=== PATIENT | female | born 1955 | race Caucasian/White ===

== ENCOUNTER 2019-11-18 10:57 | Outpatient (CLI) | payer MEDICARE, OTHER, SELFPAY ==
[2019-11-18 12:03] LABS: Basophils Percent Auto 0.7 % (0.2-1.2); Eosinophils Absolute Auto 0.1 K/mm3 (0-0.3); Eosinophils Percent Auto 3.2 % (0-4.4); Hematocrit 41.9 % (37.0-47.0); Hemoglobin 13.5 g/dL (12.0-15.0); Immature Granulocyte Absolute 0.01 K/mm3 (0.00-0.031); Immature Granulocyte Percent A 0.2 % (0-0.5); Lymphocytes Absolute Auto 1.57 K/mm3 (0.9-3.2); Lymphocytes Percent Auto 35.7 % (18.3-44.2); Mean Corpuscular HGB Conc 32.2 g/dl (32-36); Mean Corpuscular Hemoglobin 28.8 pg (26-34); Mean Corpuscular Volume 89.5 fl (80-100); Monocytes Absolute Auto 0.4 K/mm3 (0.1-0.6); Monocytes Percent Auto 8.6 % (2.6-8.5); Neutrophils Absolute Auto 2.3 K/mm3 (1.3-6.7); Neutrophils Percent Auto 51.6 % (45.5-73.1); Platelet Count Result 181 k/mm3 (150-375); Red Blood Count 4.68 M/mm3 (4.2-5.4); Red Cell Distribution Width 13.2 % (11.5-14.5); White Blood Count 4.4 K/mm3 (4.5-10.0)
[2019-11-18 12:14] LABS: Hemoglobin A1C 5.4 % (<5.7)
[2019-11-18 12:26] LABS: Alanine Aminotransferase 15 U/L (4-35); Albumin Level 4.1 g/dL (3.5-5.1); Alkaline Phosphatase 87 U/L (38-126); Aspartate Amino Transferase 26 U/L (14-36); Bilirubin,Total 0.4 mg/dL (0.2-1.3); Blood Urea Nitrogen 19 mg/dL (7-17); Calcium 9.5 mg/dL (8.4-10.2); Carbon Dioxide 28 mmol/L (22-30); Chloride 102 mmol/L (98-107); Cholesterol 165 mg/dL (0-200); Estimated Glomerular Filt Rate > 60; Glucose 94 mg/dL (65-105); HDL Direct 51 mg/dL; Potassium 4.2 mmol/L (3.4-5.0); Sodium 139 mmol/L (137-145); Triglycerides 80 mg/dL (<150)
[2019-11-18 12:28] LABS: Iron 130 ug/dL (37-170)
[2019-11-18 12:37] LABS: LDL Cholesterol Direct 80 mg/dL; Parathyroid Intact 19.7 pg/mL (7.5-53.5); Percent Iron Saturation 39 % (20-50)
[2019-11-21 07:31] LABS: Red Blood Cell Folate 510 ng/mL RBC (>280)
== END 2019-11-18 10:58 | disposition home or self-care (01) ==
LOC: ANHLAB 11:06
PROVIDERS: PCP Internal Medicine
DX: R79.9 Abnormal finding of blood chemistry, unspecified (principal); K90.9 Intestinal malabsorption, unspecified; Z98.84 Bariatric surgery status
CPT/HCPCS: 36415; 80053; 80061; 82525; 82728; 82747; 83036; 83540; 83550; 83970; 84425; 85025

== ENCOUNTER → 2020-06-25 10:29 | Outpatient (CLI) | payer MEDICARE, OTHER, SELFPAY ==
--- NOTE | ~2020-06-25 | MR_ITS ---
EXAMINATION: MR ankle LT wo con DATE: 06/25/2020 11:07 INDICATION: Left ankle pain. Posterior tibial tendon dysfunction. TECHNIQUE: Magnetic resonance imaging (MRI) of the left ankle was performed without intravenous contr ast. Sequences included sagittal, coronal, and axial proton-density weighted fast spin echo without a nd with fat saturation. COMPARISON: 03/29/2019 FINDINGS: Medial ankle ligaments: Again seen is heterotopic ossification along the deep deltoid ligament consistent with sequela of chr onic sprain. The superficial deltoid ligament and spring ligament complex remain normal. Lateral ankle ligaments: The anterior and posterior inferior tibiofibular ligaments are normal. The anterior talofibular, calc aneofibular and posterior talofibular ligaments are normal. Tendons: Achilles tendon is normal. The peroneus longus and brevis tendons are normal. The tibialis anterior a nd extensor hallucis longus and extensor digitorum longus tendons are normal. Again seen is fluid ext ending along the tibialis posterior tendon sheath predominantly above level of the ankle consistent w ith mild tenosynovitis. The tibialis posterior tendon is otherwise normal. As previous noted there is a small type II accessory os navicularis with persistent increased signal along the synchondrosis an d mild marrow edema within the os navicularis which can be seen with os navicularis syndrome. The fle xor digitorum longus and flexor hallucis longus tendons are normal. Plantar fascia: Small plantar calcaneal spur at the origin of the normal-appearing plantar aponeurosis. Bones/other: Bone alignment is normal. There is increased marrow signal at the proximal metadiaphyseal region of t he second metatarsal without evident cortical irregularity or appreciable low signal intensity fractu re line consistent with likely low-grade stress injury. No fracture or pathologic marrow replacing pr ocess. Polyarticular osteoarthritis, moderate severity with subarticular edema at the second tarsal m etatarsal joint and mild at the remaining tarsal metatarsal joints. Additional mild osteoarthritis at the ankle joint with nonuniform joint space narrowing most prominent anteromedially with chondral fi ssuring, surface regularity and minimal underlying subarticular edema along the medial rim of the marissa ar dome. Fluid: Physiologic amount fluid in the joint space. IMPRESSION: 1. New increased signal at the proximal metadiaphyseal region of the second metatarsal without eviden t low signal intensity fracture line or cortical irregularity which is nonspecific but suspicious for low-grade stress injury. 2. Normal tibialis posterior tendon persistent mild tenosynovitis and with mild reactive edema at the synchondrosis of a normal variant type II accessory os naviculare consistent with os naviculare synd ashley. 3. 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 4. Heterotopic ossification along the deep deltoid ligament consistent with sequela of chronic sprain . Reviewed, dictated and finalized at location A. IMPRESSION: 1. New increased signal at the proximal metadiaphyseal region of the second met atarsal without evident low signal intensity fracture line or cortical irregula rity which is nonspecific but suspicious for low-grade stress injury. 2. Normal tibialis posterior tendon persistent mild tenosynovitis and with mild reactive edema at the synchondrosis of a normal variant type II accessory os n aviculare consistent with os naviculare syndrome. 3. 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 4. 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
== END ==
PROVIDERS: PCP Internal Medicine; Visit Provider Podiatrist Foot & Ankle Surgery
DX: M67.874 Other specified disorders of tendon, left ankle and foot (principal)
CPT/HCPCS: 73721

== ENCOUNTER 2020-06-25 12:06 | Outpatient (CLI) | payer MEDICARE, OTHER, SELFPAY | END 2020-06-25 12:07 | disposition home or self-care (01) | LOC: ANHLAB 12:09 | PROVIDERS: PCP Internal Medicine; Visit Provider Internal Medicine | DX: E03.9 Hypothyroidism, unspecified (principal) | CPT/HCPCS: 36415; 84443 ==

== ENCOUNTER → 2020-07-25 14:46 | Outpatient (CLI) | payer MEDICARE, OTHER, SELFPAY ==
--- NOTE | ~2020-07-25 | XR_ITS ---
EXAMINATION: HAND-EDDIE ARTHRITIS 3+VIEWS DATE: 07/25/2020 15:09 INDICATION: Joint pain and limited mobility in the right hand. TECHNIQUE: Posteroanterior, lateral, and oblique views of the left and of the right hands as well as a ballcatchers view of both hands were obtained. COMPARISON: None. FINDINGS: Normal alignment at both hands. No fracture. Relatively symmetric pattern of polyarticular osteoarthr itis, moderate at several of the distal interphalangeal joints and mild at the bilateral midcarpal, f irst carpometacarpal and multiple metacarpophalangeal and interphalangeal joints. No erosions to sugg est an inflammatory arthritis. Soft tissues are unremarkable. IMPRESSION: 1. Relatively symmetric typical pattern of mild to moderate polyarticular osteoarthritis at both hand s with distal interphalangeal predominance. Reviewed, dictated and finalized at location A. 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 Relatively symmetric typical pattern of mild to moderate polyarticular osteo arthritis at both hands with distal interphalangeal predominance.
== END ==
PROVIDERS: Visit Provider Internal Medicine
DX: M79.643 Pain in unspecified hand (principal); M15.9 Polyosteoarthritis, unspecified
CPT/HCPCS: 73130

== ENCOUNTER → 2020-08-15 13:54 | Outpatient (CLI) | payer MEDICARE, OTHER, SELFPAY ==
--- NOTE | ~2020-08-15 | MM_ITS ---
EXAMINATION: MM screening paty BI w urbano HISTORY: Screening TECHNIQUE: Craniocaudal and mediolateral oblique 3-D tomosynthesis images were obtained and synthetic 2-D images were generated. CAD analysis was submitted and interpreted. COMPARISON: Comparison to multiple prior studies sequentially, with oldest reviewed study dated 06/06. BREAST PARENCHYMAL COMPOSITION: There are scattered areas of fibroglandular density. FINDINGS: There is no evidence of suspicious mass, calcification, or architectural distortion to sugg est malignancy in either breast. There has been no suspicious interval change. IMPRESSION: 1. No mammographic evidence of malignancy. 2. Recommend routine screening mammography in one year. BI-RADS Category 1: Negative Reviewed, dictated and finalized at location A. 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
== END ==
PROVIDERS: PCP Internal Medicine; Visit Provider Internal Medicine
DX: Z12.31 Encounter for screening mammogram for malignant neoplasm of breast (principal)
CPT/HCPCS: 77063; 77067

== ENCOUNTER → 2020-09-24 11:53 | Outpatient (CLI) | payer MEDICARE, OTHER, SELFPAY ==
--- NOTE | ~2020-09-24 | XR_ITS ---
XR knee RT 3V DATE: 09/24/2020 12:22 INDICATION: Right knee pain TECHNIQUE: [place] and standing AP and lateral views COMPARISON: None FINDINGS: There is periarticular spurring and joint space narrowing at all 3 compartments consistent with tricompartment osteoarthritis. No fracture or dislocation or significant joint effusion is evident. No radiopaque intra-articular loose body or chondrocalcinosis is evident. No periosteal reaction or b one destruction. IMPRESSION: Tricompartment osteoarthritis Reviewed, dictated and finalized at location B. 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
--- NOTE | ~2020-09-24 | XR_ITS ---
XR knee LT 3V DATE: 09/24/2020 12:22 INDICATION: Left knee pain TECHNIQUE: [place] and standing AP and lateral views COMPARISON: None FINDINGS: Status post left total knee arthroplasty with patellar resurfacing. Diffuse osteopenia. No fracture or dislocation, periosteal reaction or bone destruction is evident. IMPRESSION: Left total knee arthroplasty Diffuse osteopenia Reviewed, dictated and finalized at location B. 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
== END ==
PROVIDERS: PCP Internal Medicine; Visit Provider Internal Medicine
DX: M17.11 Unilateral primary osteoarthritis, right knee (principal); M85.862 Other specified disorders of bone density and structure, left lower leg
CPT/HCPCS: 73562

== ENCOUNTER → 2020-11-20 12:23 | Outpatient (CLI) | payer MEDICARE, OTHER, SELFPAY ==
--- NOTE | ~2020-11-20 | DEXA_ITS ---
Bone Density Report Name: Medardo Nelson Age: 65 Sex: Female Ethnicity: White Date of : 1955 Indication: postmenopausal; screening for osteoporosis; height loss; hysterectomy; Referring Provider: FRANK MADDEN Study: Bone densitometry was performed. Exam Date: November 20, 2020 Accession number: [id number] Bone Density: Region BMD T-score Z-score Classification AP Spine (L1-L4) 1.027 -0.2 1.5 Normal Femoral Neck (Left) 0.760 -0.8 0.6 Normal Total Hip (Left) 0.905 -0.3 0.8 Normal Femoral Neck (Right) 0.839 -0.1 1.3 Normal Total Hip (Right) 0.922 -0.2 1.0 Normal Total Hip Mean 0.914 -0.3 0.9 Normal World Health Organization criteria for BMD impression classify patients as: Normal (T-score at or above -1.0), Osteopenia (T-score between -1.0 and -2.5), or Osteoporosis (T-score at or below -2.5). 10-year Fracture Risk: FRAX not reported because: All T-scores for Spine Total, Hip Total, Femoral Neck at or above -1.0 Previous Exams: Region Exam Age BMD T-score BMD Change BMD Change Date g/cm2 vs Baseline vs Previous AP Spine(L1-L4) 11/20/2020 65 1.027 -0.2 -0.009 -0.106 08/24/2017 62 1.133 0.8 0.097* 0.011 05/09/2015 59 1.122 0.7 0.086* 0.086* 03/10/2007 51 1.037 -0.1 Total Hip(Left) 11/20/2020 65 0.905 -0.3 -0.231 -0.242 08/24/2017 62 1.147 1.7 0.011 -0.017 05/09/2015 59 1.164 1.8 0.028* 0.028* 03/10/2007 51 1.136 1.6 Total Hip(Right) 11/20/2020 65 0.922 -0.2 -0.184 -0.193 08/24/2017 62 1.115 1.4 0.009 0.057* 05/09/2015 59 1.059 1.0 -0.048* -0.048* 03/10/2007 51 1.107 1.4 *Denotes significance at 95% confidence level, LSC for AP Spine = 0.022 g/cm2, LSC for Total Hip = 0.027 g/cm2 Clinical Information Provided by Patient: Has used the following medications: Vitamin D, Calcium Has the following medical conditions: Hysterectomy Patient maximum height was 65 Menopause Age: 45 No regular weight bearing exercise Drinks caffeinated beverages Onset of menses at age 15 Number of children 2 Impression: The patient has normal bone mass. No significant bone loss was observed. Discussion: BONE DENSITY IS ABOVE THE MINIMUM DESIRABLE LEVEL AT ALL SKELETAL SITES TESTED. This patient?s bone mineral density is above the minimum d
== END ==
PROVIDERS: PCP Internal Medicine; Visit Provider Internal Medicine
DX: Z78.0 Asymptomatic menopausal state (principal)
CPT/HCPCS: 77080

== ENCOUNTER 2021-02-26 08:52 | Outpatient (CLI) | payer MEDICARE, OTHER, SELFPAY ==
[2021-02-26 09:34] LABS: Hematocrit 39.2 % (37.0-47.0); Hemoglobin 12.7 g/dL (12.0-15.0); Mean Corpuscular HGB Conc 32.4 g/dl (32-36); Mean Corpuscular Hemoglobin 29.5 pg (26-34); Mean Corpuscular Volume 91.2 fl (80-100); Mean Platelet Volume 11.1 fl (7.4-10.4); Platelet Count Result 174 k/mm3 (150-375); Red Cell Distribution Width 13.2 % (11.5-14.5); White Blood Count 4.7 K/mm3 (4.5-10.0)
[2021-02-26 09:45] LABS: Basophils Percent Auto 0.6 % (0.2-1.2); Eosinophils Absolute Auto 0.1 K/mm3 (0-0.3); Eosinophils Percent Auto 2.6 % (0-4.4); Immature Granulocyte Absolute 0.01 K/mm3 (0.00-0.031); Immature Granulocyte Percent A 0.2 % (0-0.5); Lymphocytes Absolute Auto 1.85 K/mm3 (0.9-3.2); Lymphocytes Percent Auto 39.4 % (18.3-44.2); Monocytes Absolute Auto 0.6 K/mm3 (0.1-0.6); Monocytes Percent Auto 11.9 % (2.6-8.5); Neutrophils Absolute Auto 2.1 K/mm3 (1.3-6.7); Neutrophils Percent Auto 45.3 % (45.5-73.1)
[2021-02-26 09:50] LABS: Alanine Aminotransferase 16 U/L (4-35); Alkaline Phosphatase 83 U/L (38-126); Anion Gap 8 mmol/L (8-16); Aspartate Amino Transferase 32 U/L (14-36); Bilirubin,Total 0.5 mg/dL (0.2-1.3); Blood Urea Nitrogen 18 mg/dL (7-17); Calcium 9.5 mg/dL (8.4-10.2); Carbon Dioxide 29 mmol/L (22-30); Chloride 104 mmol/L (98-107); Cholesterol 169 mg/dL (0-200); Estimated Glomerular Filt Rate 56; Glucose 84 mg/dL (65-105); HDL Direct 63 mg/dL; Potassium 3.9 mmol/L (3.4-5.0); Sodium 141 mmol/L (137-145); Triglycerides 80 mg/dL (<150)
[2021-02-26 10:00] LABS: LDL Cholesterol Direct 68 mg/dL
[2021-02-26 10:06] LABS: Creatinine Urine 100.9 mg/dL
[2021-02-26 10:07] LABS: MALB Creatinine Ratio 7.6 mg/g (0-30); Microalbumin Urine Random 7.7 mg/L (0-16.7)
[2021-02-26 10:17] LABS: Vitamin D 25 Hydroxy 71.2 ng/mL
== END 2021-02-26 08:53 | disposition home or self-care (01) ==
PROVIDERS: PCP Internal Medicine; Visit Provider Internal Medicine
DX: E03.9 Hypothyroidism, unspecified (principal); E55.9 Vitamin D deficiency, unspecified; E66.3 Overweight; F31.9 Bipolar disorder, unspecified; M19.90 Unspecified osteoarthritis, unspecified site; Z78.0 Asymptomatic menopausal state; E78.2 Mixed hyperlipidemia
CPT/HCPCS: 36415; 80053; 80061; 82043; 82306; 84443; 85025

== ENCOUNTER → 2021-03-28 14:09 | Outpatient (CLI) | payer MEDICARE, OTHER, SELFPAY ==
--- NOTE | ~2021-03-28 | XR_ITS ---
XR lumbar spine 2-3V 03/28/2021 14:41 Indication: Low back pain after fall Procedure: 3 views lumbar spine Comparison: 06/05/2015 Findings: There is loss of disc height at all levels except L5-S1. There is moderate facet hypertroph y at L3-4, L4-5 and L5-S1 with grade 1 degenerative spondylolisthesis at L4-5. No acute fracture or t raumatic malalignment. There is a large right renal stone presumably in the renal pelvis. Sacral fora men are symmetric. Impression: 1: Mild-moderate lumbar spondylosis. Reviewed, dictated and finalized at location A. Impression: 1: Mild-moderate lumbar spondylosis.
--- NOTE | ~2021-03-28 | XR_ITS ---
XR hip BI 2V w AP pelvis 03/28/2021 14:41 Indication: Status post fall. Back and pelvic pain. Procedure: AP pelvis and 2 views each hip Comparison: 05/09/2006 Findings: No acute fracture, subluxation or dislocation. Pelvic rings are intact. Sacral foramen are symmetric. There is a right renal stone at the L2 level. Bowel gas pattern nonobstructive. There is o steitis pubis. Impression: 1: No acute bone or joint abnormality. Reviewed, dictated and finalized at location A. Impression: 1: No acute bone or joint abnormality.
== END ==
PROVIDERS: PCP Internal Medicine; Visit Provider Internal Medicine
DX: M47.896 Other spondylosis, lumbar region (principal)
CPT/HCPCS: 72100; 73521

== ENCOUNTER 2021-04-03 13:44 | Outpatient (CLI) | payer MEDICARE, OTHER, SELFPAY ==
[2021-04-03 14:39] LABS: Add Urine Microscopic? YES; Appearance Urine Clear (Clear); Bilirubin Urine Negative (Negative); Blood Urine 2+ (Negative); Color Urine Yellow (Yellow); Glucose Urine UA Negative (Negative); Ketones Urine Negative (Negative); Leukocyte Esterase Ur Trace LEU/UL (Negative); Mucus Urine Rare /lpf; Nitrate Urine Negative (Negative); Protein Urine Negative (Negative); RBC Urine 0-2 /hpf (0-2); Specific Grav Ur 1.006 (1.001-1.035); Squamous Epithelial Cell Urine Rare /hpf (Few); Urobilinogen Urine Negative mg/dL (<2.0); WBC Urine 0-3 /hpf
== END 2021-04-03 13:45 | disposition home or self-care (01) ==
PROVIDERS: PCP Internal Medicine; Visit Provider Internal Medicine
DX: R82.998 Other abnormal findings in urine (principal)
CPT/HCPCS: 81001

== ENCOUNTER → 2021-04-15 09:41 | Outpatient (CLI) | payer MEDICARE, OTHER, SELFPAY ==
--- NOTE | ~2021-04-15 | XR_ITS ---
EXAMINATION: XR chest 2V 04/15/2021 10:20 INDICATION: Cough PROCEDURE: 2 view chest COMPARISON: Comparison to multiple prior studies sequentially, with oldest reviewed study dated 08/21. FINDINGS: The lungs are clear. The cardiomediastinal silhouette is within normal limits. There are no pleural effusions. There is no pneumothorax suspected. IMPRESSION: 1: NO ACUTE CARDIOPULMONARY DISEASE. Reviewed, dictated and finalized at location A.
== END ==
PROVIDERS: PCP Internal Medicine; Visit Provider Internal Medicine
DX: R05 Cough (principal)
CPT/HCPCS: 71046

== ENCOUNTER → 2021-04-30 10:18 | Outpatient (CLI) | payer MEDICARE, OTHER, SELFPAY ==
--- NOTE | ~2021-04-30 | CT_ITS ---
EXAMINATION: CT abdomen pelvis wo con DATE: 04/30/2021 10:32 INDICATION: Right kidney stone TECHNIQUE: Computed tomography (CT) of the abdomen and pelvis was performed without intravenous contr ast. The dose-length product (DLP) was 639.68 mGy-cm. Automated exposure control and iterative recons truction technique were employed. COMPARISON: 06/05/2015 FINDINGS: The lung bases are clear. The heart size is normal. There are changes of gastric bypass bennie emil. The liver, spleen, pancreas, gallbladder, and adrenal glands are normal. The left kidney is unr emarkable. There is a 2.2 cm stone in the right renal pelvis. There is a 6 mm stone in the right kidn ey lower pole. No stones are present in the ureters or bladder. No pathologically enlarged abdominal or pelvic lymph nodes are identified. There is no free intraperitoneal gas or evidence of bowel obstr uction. There is mild lumbar spondylosis. There are bridging osteophytes at multiple levels in the lo wer thoracic spine, consistent with diffuse idiopathic skeletal hyperostosis (DISH). IMPRESSION: 1. 2.2 cm stone in the right renal pelvis and 6 mm stone in the right kidney lower pole. Reviewed, dictated and finalized at location B. IMPRESSION: 1. 2.2 cm stone in the right renal pelvis and 6 mm stone in the right kidney lo wer pole.
== END ==
PROVIDERS: PCP Internal Medicine; Visit Provider Nurse Practitioner Family
DX: N20.0 Calculus of kidney (principal)
CPT/HCPCS: 74176

== ENCOUNTER → 2021-05-06 12:54 | Outpatient (CLI) | payer MEDICARE, OTHER, SELFPAY ==
--- NOTE | ~2021-05-06 | XR_ITS ---
XR abdomen/kub 1V 05/06/2021 13:12 Indication: Right kidney stone Procedure: KUB Comparison: 04/30/2021 Findings: There is a right renal stone measuring 2.4 cm maximum dimension. There are surgical changes of the stomach. Bowel gas pattern is nonobstructive. No acute osseous abnormality. There are pelvic phleboliths. Impression: 1: Right renal stone measuring 2.4 cm maximum dimension. Reviewed, dictated and finalized at location A. Impression: 1: Right renal stone measuring 2.4 cm maximum dimension.
== END ==
PROVIDERS: Visit Provider Nurse Practitioner Family
DX: N20.0 Calculus of kidney (principal)
CPT/HCPCS: 74018

== ENCOUNTER 2021-05-24 08:56 | Outpatient (CLI) | payer MEDICARE, OTHER, SELFPAY ==
[2021-05-24 10:33] LABS: INR 0.9; Prothrombin Time 12.3 Seconds (11.1-14.7)
[2021-05-24 10:34] LABS: Partial Thromboplastin Time 27.2 SECONDS (22.3-36.8)
== END 2021-05-24 08:57 | disposition home or self-care (01) ==
LOC: ANHSURGERY 09:00
PROVIDERS: PCP Internal Medicine; Visit Provider Urology
DX: Z01.812 Encounter for preprocedural laboratory examination (principal); N20.0 Calculus of kidney; Z51.81 Encounter for therapeutic drug level monitoring; Z79.899 Other long term (current) drug therapy
CPT/HCPCS: 36415; 85610; 85730; 87086

== ENCOUNTER 2021-05-31 00:59 | Day surgery (SDC) | payer MEDICARE, OTHER, SELFPAY ==
[2021-05-23 10:36] VITALS: BMI 29.2
--- NOTE | 2021-05-24 08:08 | PM.HPGS ---
History of Present Illness History of Present Illness Consent: Risks, benefits, and alternatives have been discussed and questions answered. Patient agrees to proceed with procedure. Chief complaint: right renal stone Narrative: Medardo Nelson is a 65 year old female who recently underwent evaluation in our office for incomplete bladder emptying. Time she also reported a dull left flank pain. CT scan revealed a 2.2 cm right renal pelvic and a 6 mm right lower calyceal stone. After discussion of options he elected for a trial of right ESWL with the understanding he may require multiple procedures. She is aware of the risk of this including, but not limited to, adverse cardiopulmonary events, persistent stone fragments, perinephric hematoma. We will also plan cystoscopy with right ureteral stent placement in addition to right ESWL. Review of Systems Cardiovascular: Cardiovascular: Denies chest pain, Denies lightheadedness, Denies palpitations and Denies dyspnea Respiratory: Respiratory: Denies dyspnea Gastrointestinal: Gastrointestinal: Denies diarrhea, Denies nausea and Denies vomiting Genitourinary: Genitourinary: Denies hematuria and Denies dysuria Endocrine: Endocrine: Denies palpitations [facility] Past Medical History Medical History Anxiety Arthritis Bipolar 1 disorder Chronic back pain Depression Hypothyroid Left knee pain Right knee pain Surgical History Surgical History H/O gastric bypass History of 2 sections History of arthroscopy of both knees History of foot surgery L arch of foot cyst removal History of hysterectomy History of tonsillectomy History of total knee replacement Family History Family History Sibling Family history of obesity Patient's sister is in good health Family history of malignant neoplasm of breast in first degree relative Family history of malignant neoplasm Father Family history of mental disorder Family history of cardiovascular disease Family history of malignant neoplasm Depression Hypertension Family history of elevated blood lipids Family history of alcoholism Family history of lung cancer, Onset Age: 72 Family history of coronary artery disease Family history of chronic obstructive pulmonary disease Family history of emphysema, Onset Age: 72 Mother Hypertension Patient's mother is in good health Family history of elevated blood lipids Cerebrovascular accident Family history of heart disease in male family member before age 55 Family history of chronic obstructive pulmonary disease Other Asthma Breast cancer Family history of allergic disorder Family history of migraine headaches Heart disease Social History Social History Smoking status: Never smoker Second hand tobacco smoke exposure: No Alcohol intake: current Alcohol use details: Social Substance use: never Substance use type: does not use Gender identity (if verbalized by the patient): Female Spiritual care concerns: No Meds Home Medications and Allergies Home Medications Medication Instructions Recorded Confirmed Type bupropion HCl 100 mg tablet,12 hr 100 mg PO TID tablet 07/16/20 05/23/21 History sustained-release quetiapine 100 mg tablet 100 mg PO HS tablet 09/24/20 05/23/21 History cyclobenzaprine 10 mg tablet 10 mg PO TID PRN #30 tablet 02/05/21 05/23/21 Rx biotin 5 mg capsule 5 mg PO DAILY 02/19/21 05/23/21 History calcium carb-vit [id number] 1 tablet PO DAILY 02/19/21 05/23/21 History 333 mg-200 unit-133 mg-5 mg tablet mecobalamin (vitamin B12) 5,000 5,000 mcg PO DAILY 02/19/21 05/23/21 History mcg disintegrating tablet amoxicillin 875 mg-potassium 1 tablet PO BID #20 tablet 04/15/21 05/23/21 Rx clavu
[2021-05-31] VITALS (8 sets, daily range): BP systolic 102–133; BP diastolic 40–91; PULSE 62–88; RESP 11–15; TEMP 36.6–36.7; O2SAT 98–100
--- NOTE | ~2021-05-31 | XR_ITS ---
EXAMINATION: XR abdomen/kub 1V DATE: 05/31/2021 11:06 INDICATION: Right kidney stone. TECHNIQUE: A supine view of the abdomen on 2 radiographs was obtained. COMPARISON: CT abdomen and pelvis 04/30/2021 FINDINGS: There are no dilated loops of bowel. There are phleboliths in the pelvis. There are 22 mm a nd 6 mm stones in right kidney. IMPRESSION: 1. Right kidney stones. Reviewed, dictated and finalized at location A. IMPRESSION: 1. Right kidney stones.
--- NOTE | 2021-05-31 07:10 | WPDHPUPDATE1 ---
History and Physical Update Update Date/Time: 05/31/21 07:10 History and Physical has been reviewed, including an updated exam of the patient. There are NO changes in the patient's condition. Risks, benefits, and alternatives have been discussed and questions answered. Patient agrees to proceed with procedure.
--- NOTE | 2021-05-31 07:14 | WPDANESEPPF ---
Anes - Initial Pre Proc Eval Procedure: Operation Date: 05/31/21 13:00 Proposed Procedures p Right Renal Extracorporeal Shock Wave Lithotripsy, - Deonte Yanez MD s Cystoscopy with Right Stent Placement - Deonte Yanez MD Date/Time: 05/31/21 07:14 Surgeon: Deonte Yanez MD Pre Op Diagnosis: right renal stone Patient Data Age: 65 Gender: F Height: 1.63 m Weight: 77.15 kg Allergies Allergy/AdvReac Type Severity Reaction Status Date / Time hydrocodone Allergy Mild ITCHING Verified 05/31/21 11:32 pentazocine Allergy Mild ITCHING Verified 05/31/21 11:32 tapentadol Allergy Mild ITCHING Verified 05/31/21 11:32 tramadol Allergy Mild ITCHING Verified 05/31/21 11:32 codeine AdvReac Mild ITCHING Verified 05/31/21 11:32 Home Medications Medication Instructions Recorded Confirmed Type bupropion HCl 100 mg tablet,12 hr 100 mg PO TID tablet 07/16/20 05/31/21 History sustained-release quetiapine 100 mg tablet 100 mg PO HS tablet 09/24/20 05/31/21 History cyclobenzaprine 10 mg tablet 10 mg PO TID PRN #30 tablet 02/05/21 05/31/21 Rx biotin 5 mg capsule 5 mg PO DAILY 02/19/21 05/31/21 History calcium carb-vit [id number]-rzoa 1 tablet PO DAILY 02/19/21 05/31/21 History 333 mg-200 unit-133 mg-5 mg tablet mecobalamin (vitamin B12) 5,000 5,000 mcg PO DAILY 02/19/21 05/31/21 History mcg disintegrating tablet amoxicillin 875 mg-potassium 1 tablet PO BID #20 tablet 04/15/21 05/23/21 Rx clavulanate 125 mg tablet levothyroxine 50 mcg tablet 50 mcg PO DAILY #90 tablet 05/14/21 05/31/21 Rx escitalopram oxalate [Lexapro] 5 mg PO HS 05/23/21 05/31/21 History multivitamin,ds-crru-qnuiagxw 1 tablet PO DAILY 05/23/21 05/31/21 History [Complete Multivitamin] Patient hx anesthesia problems: none Family hx anesthesia problems: none PMFSH Past Medical History Medical History Anxiety Arthritis Bipolar 1 disorder Chronic back pain Depression Hypothyroid Left knee pain Right knee pain Surgical History Surgical History H/O gastric bypass History of 2 sections History of arthroscopy of both knees History of foot surgery L arch of foot cyst removal History of hysterectomy History of tonsillectomy History of total knee replacement Family History Family History Sibling Family history of obesity Patient's sister is in good health Family history of malignant neoplasm of breast in first degree relative Family history of malignant neoplasm Father Family history of mental disorder Family history of cardiovascular disease Family history of malignant neoplasm Depression Hypertension Family history of elevated blood lipids Family history of alcoholism Family history of lung cancer, Onset Age: 72 Family history of coronary artery disease Family history of chronic obstructive pulmonary disease Family history of emphysema, Onset Age: 72 Mother Hypertension Patient's mother is in good health Family history of elevated blood lipids Cerebrovascular accident Family history of heart disease in male family member before age 55 Family history of chronic obstructive pulmonary disease Other Asthma Breast cancer Family history of allergic disorder Family history of migraine headaches Heart disease Social History Social History Smoking status: Never smoker Second hand tobacco smoke exposure: No Alcohol intake: current Alcohol use details: Social Substance use: never Substance use type: does not use Living arrangements: with family Gender identity (if verbalized by the patient): Female Spiritual care concerns: No Anes - Eval Final PreProcedure Day of Procedure 05/31/21 07:14 Patient weight: overweight Heart: regular rate and
[2021-05-31] MEDS: LACTATED RINGERS 1,000 ML 30 ML IV CONT (11:47)
[2021-05-31] MEDS: ceFAZolin 2 GM/D5W 50 ML 2 GM/50 ML BAG IVPB (13:36)
--- NOTE | 2021-05-31 14:24 | P.OP_ITS ---
Procedure Note - Detailed Date of Procedure 05/31/21 Pre-op Diagnosis Right renal stone Post-op Diagnosis same Procedure Performed Cystoscopy, right ureteral stent placement, right ESWL Surgeon Deonte Yanez MD Anesthesia general Description of Procedure The patient was brought to the operative suite where she was placed in the frog- legged position on the Dornier lithotripter table. Flexible cystoscopy was undertaken with a 16F flexible cystoscopy. Her urethra and bladder neck were endoscopically normal. The bladder mucosa was normal and there was a single, orthotopic ureteral orifice bilaterally. A 0.035 glidewire was advanced into the right renal pelvis under fluoroscopy. A 4.8F J-J ureteral stent was positioned with the proximal coil in the renal pelvis and the distal coil in the bladder. The patient was then repositioned in the supine position and the focal point of the lithotriptor was placed at a 22mm left renal pelvic calculus. A total of 2500 shocks were delivered at a power setting of 4. The patient tolerated the procedure well and was taken to the recovery room in good con dition. Estimated Blood Loss 0 Drains No Packing No Pathology none sent Complications No immediate complications Condition stable Disposition PACU
== END 2021-05-31 16:35 | disposition home or self-care (01) ==
PROVIDERS: PCP Internal Medicine; Visit Provider Urology
PROC: (CPT 50590; principal; 2021-05-31 13:00)
PROC: (CPT 52352; 2021-05-31 13:00)
DX: N20.0 Calculus of kidney (principal); E03.9 Hypothyroidism, unspecified; F31.9 Bipolar disorder, unspecified; F41.9 Anxiety disorder, unspecified; Z98.84 Bariatric surgery status
CPT/HCPCS: 52332; 50590; 74018; A9270; C1769; C2617; J0461; J0690; J1100; J2250; J2370; J2405; J2704; J3010; J7030; J7120

== ENCOUNTER → 2021-07-09 14:08 | Outpatient (CLI) | payer MEDICARE, OTHER, SELFPAY ==
--- NOTE | ~2021-07-09 | XR_ITS ---
EXAMINATION: XR abdomen/kub 1V DATE: 07/09/2021 14:49 INDICATION: Right kidney stone. TECHNIQUE: A supine view of the abdomen on 2 radiographs was obtained. COMPARISON: CT abdomen and pelvis 04/30/2021 FINDINGS: There are no dilated loops of bowel. There are phleboliths in the pelvis. There is a right internal ureteral stent in expected position. A 7 mm density overlying the right renal pelvis may be a stone. There is a 7 x 3 mm stone in proximal right ureter at L3-L4. IMPRESSION: 1. Stone in the proximal right ureter and possible stone in the right renal pelvis with right interna l ureteral stent in expected position. Reviewed, dictated and finalized at location A. IMPRESSION: 1. Stone in the proximal right ureter and possible stone in the right renal pel vis with right internal ureteral stent in expected position.
== END ==
PROVIDERS: PCP Internal Medicine; Visit Provider Nurse Practitioner Family
DX: N20.0 Calculus of kidney (principal); N20.1 Calculus of ureter; Z96.0 Presence of urogenital implants
CPT/HCPCS: 74018

== ENCOUNTER → 2021-07-25 12:46 | Outpatient (CLI) | payer MEDICARE, OTHER, SELFPAY ==
--- NOTE | ~2021-07-25 | XR_ITS ---
XR abdomen/kub 1V DATE: 07/25/2021 13:06 INDICATION: Kidney calculus TECHNIQUE: AP projection, 2 views COMPARISON: 07/09/2021 KUB FINDINGS: Right internal urinary stent is again noted, in expected and unchanged position since 07/09. There is suggestion of calcified stones along the proximal right ureter at the L4 level. Nonspecific bowel gas pattern without evidence of obstruction. Postoperative change of the left upper quadrant of the abdomen. IMPRESSION: Right internal urinary stent Probable Steinstrasse of the proximal right ureter at L4 level Reviewed, dictated and finalized at Location A. Reviewed, dictated and finalized at location A.
== END ==
PROVIDERS: Visit Provider Urology
DX: N20.0 Calculus of kidney (principal)
CPT/HCPCS: 74018

== ENCOUNTER → 2021-08-19 15:03 | Outpatient (CLI) | payer MEDICARE, OTHER, SELFPAY ==
--- NOTE | ~2021-08-19 | MM_ITS ---
EXAMINATION: MM screening paty BI w urbano HISTORY: Screening mammogram TECHNIQUE: Craniocaudal and mediolateral oblique 3-D tomosynthesis images were obtained and synthetic 2-D images were generated. CAD analysis was submitted and interpreted. COMPARISON: 08/15/2020, 08/02/2019, 07/12/2018 bilateral screening mammogram examinations BREAST PARENCHYMAL COMPOSITION: There are scattered areas of fibroglandular density. FINDINGS: There is no evidence of suspicious mass, calcification, or architectural distortion to sugg est malignancy in either breast. There has been no suspicious interval change. IMPRESSION: 1. No mammographic evidence of malignancy. 2. Recommend routine screening mammography in one year. BI-RADS Category 1: Negative Reviewed, dictated and finalized at location A. [facility] W[facility] RO[facility]
== END ==
PROVIDERS: PCP Internal Medicine; Visit Provider Internal Medicine
DX: Z12.31 Encounter for screening mammogram for malignant neoplasm of breast (principal)
CPT/HCPCS: 77063; 77067

== ENCOUNTER → 2021-09-18 13:56 | Outpatient (CLI) | payer MEDICARE, OTHER, SELFPAY ==
--- NOTE | ~2021-09-18 | US_ITS ---
EXAMINATION: US renal BI EXAM DATE: 09/18/2021 14:25 INDICATION: Calculus of kidney TECHNIQUE: Multiple grayscale and Doppler images of the kidneys were obtained (by a technologist who performed the scan) and subsequently reviewed. There is no prior study for comparison. FINDINGS: Right kidney: There is normal contour and echogenicity. It measures 9.6 x 5.3 x 6.1 centimeters. Th ere are no focal renal lesions or kidney stones identified. Moderate right-sided hydronephrosis. Left kidney: There is normal contour and echogenicity. It measures 10.3 x 4.5 x 5.3 centimeters. Th ere are no focal renal lesions or kidney stones identified. There is no hydronephrosis. Bladder unremarkable. IMPRESSION: Moderate right-sided hydronephrosis. Reviewed, dictated and finalized at location A. S PROFESSIONAL
== END ==
PROVIDERS: PCP Internal Medicine; Visit Provider Urology
DX: N20.0 Calculus of kidney (principal)
CPT/HCPCS: 76775

== ENCOUNTER → 2021-09-30 08:18 | Outpatient (CLI) | payer MEDICARE, OTHER, SELFPAY ==
--- NOTE | ~2021-09-30 | CT_ITS ---
EXAMINATION: CT abdomen pelvis wo/w con DATE: 09/30/2021 09:15 INDICATION: Right hydronephrosis. TECHNIQUE: Computed tomography (CT) of the abdomen and pelvis was performed without and with intraven ous contrast using a total of 130 mL Omnipaque-350 intravenous contrast with a double-bolus technique for simultaneous opacification of the renal parenchyma and renal collecting system. Automated exposu re control and iterative reconstruction technique were employed. The dose-length product was 1968.03 mGy-cm. COMPARISON: CT abdomen and pelvis 04/30/2021 FINDINGS: The visualized portions of the lung bases demonstrate mild atelectasis. No pleural effusion. The hear t size is normal. No pericardial effusion. There is a small sliding hiatal hernia. There are surgical changes in the stomach. The liver, gallbladder, spleen, pancreas, and adrenal glands are normal. The re is mild atrophy of right kidney. There is moderate right hydronephrosis and hydroureter. There are 4 stones in proximal right ureter measuring up to 4 mm. There is a 5 mm stone in distal right ureter just beyond where the ureter crosses the iliac vessels. Right ureter is not well opacified by contra st distally. Left kidney is normal. Left ureter is not well opacified by contrast distally. There are no dilated loops of bowel. The appendix is normal. There are no pathologically enlarged lymph nodes. There is no free intraperitoneal fluid. There is severe thoracic spondylosis and moderate lumbar spo ndylosis. IMPRESSION: 1. 5 stones in right ureter measuring up to 5 mm with moderate right hydronephrosis and hydroureter. Reviewed, dictated and finalized at location B. 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 5 stones in right ureter measuring up to 5 mm with moderate right hydronephr osis and hydroureter.
[2021-09-30 08:43] LABS: Estimated Glomerular Filt Rate 45
== END ==
PROVIDERS: PCP Internal Medicine; Visit Provider Urology
DX: N13.30 Unspecified hydronephrosis (principal); N20.1 Calculus of ureter
CPT/HCPCS: 74178; Q9967

== ENCOUNTER 2021-10-18 00:39 | Day surgery (SDC) | payer MEDICARE, OTHER, SELFPAY ==
--- NOTE | 2021-10-10 06:56 | PM.HPGS ---
History of Present Illness History of Present Illness Consent: Risks, benefits, and alternatives have been discussed and questions answered. Patient agrees to proceed with procedure. Chief complaint: ureteral stones Narrative: Medardo Nelson is a 66 year old female is well known to us with a recent large right renal calculus. She has undergone right ESWL but has residual fragments along the course of her right ureteral stent. Most recent KUB showed 5-6 fragments scattered along the course of her right ureteral stent. She now presents for cystoscopy with endoscopic extraction of the right ureteral stones. She is aware the risks including, but not limited to, injury to the ureter, need to replace the stent and recurrent urolithiasis. Review of Systems Cardiovascular: Cardiovascular: Denies chest pain, Denies lightheadedness, Denies palpitations and Denies dyspnea Respiratory: Respiratory: Denies dyspnea Gastrointestinal: Gastrointestinal: Denies diarrhea, Denies nausea and Denies vomiting Genitourinary: Genitourinary: Denies hematuria and Denies dysuria Endocrine: Endocrine: Denies palpitations PMF Past Medical History Medical History Anxiety Arthritis Bipolar 1 disorder Chronic back pain Depression Hypothyroid Left knee pain Right knee pain Surgical History Surgical History H/O gastric bypass History of 2 sections History of arthroscopy of both knees History of foot surgery L arch of foot cyst removal History of hysterectomy History of tonsillectomy History of total knee replacement Family History Family History Sibling Family history of obesity Patient's sister is in good health Family history of malignant neoplasm of breast in first degree relative Family history of malignant neoplasm Father Family history of mental disorder Family history of cardiovascular disease Family history of malignant neoplasm Depression Hypertension Family history of elevated blood lipids Family history of alcoholism Family history of lung cancer, Onset Age: 72 Family history of coronary artery disease Family history of chronic obstructive pulmonary disease Family history of emphysema, Onset Age: 72 Mother Hypertension Patient's mother is in good health Family history of elevated blood lipids Cerebrovascular accident Family history of heart disease in male family member before age 55 Family history of chronic obstructive pulmonary disease Other Asthma Breast cancer Family history of allergic disorder Family history of migraine headaches Heart disease Social History Social History Second hand tobacco smoke exposure: No Alcohol intake: current Alcohol use details: Social Substance use: never Substance use type: does not use Gender identity (if verbalized by the patient): Female Spiritual care concerns: No Meds Home Medications and Allergies Home Medications Medication Instructions Recorded Confirmed Type bupropion HCl 100 mg tablet,12 hr 100 mg PO TID tablet 07/16/20 10/04/21 History sustained-release quetiapine 100 mg tablet 100 mg PO HS tablet 09/24/20 10/04/21 History biotin 5 mg capsule 5 mg PO DAILY 02/19/21 10/04/21 History calcium carb-vit [id number] 1 tablet PO DAILY 02/19/21 10/04/21 History 333 mg-200 unit-133 mg-5 mg tablet mecobalamin (vitamin B12) 5,000 5,000 mcg PO DAILY 02/19/21 10/04/21 History mcg disintegrating tablet levothyroxine 50 mcg tablet 50 mcg PO DAILY #90 tablet 05/14/21 10/04/21 Rx escitalopram oxalate [Lexapro] 5 mg PO HS 05/23/21 10/04/21 History multivitamin,eh-opsq-wlapuhut 1 tablet PO DAILY 05/23/21 10/04/21 History methylprednisolone 4 mg tablets in See Rx Instructions PO PER PKG DIR 09/21
[2021-10-15 10:12] VITALS: BMI 31.8
--- NOTE | 2021-10-15 10:22 | PC.NURSE ---
Report to the Outpatient Waiting Room, entrance under the green pavilion located off [facility], at time 0830 on date 10/18/21. OR Time: 1030. - You will be asked a series of questions to screen for COVID 19 for your protection. - A mask is required within the hospital. - No visitors are allowed at this time. Preoperative COVID Testing Requirements: No COVID Test needed if: (proof is required; if not received patient will have Rapid Test prior to entry) - Patient has received COVID Vaccine at least 14 days prior to procedure date or - Patient has positive COVID test result within last 90 days of surgery date. COVID Test needed if above criteria is not met Patients may have clear liquids (water, carbonated beverages, clear teas, apple juice) until 3 hours prior to surgery with a maximum of 20 ounces. - No food from midnight until time of surgery Take the following medications with a SIP of water the morning of surgery: BUPROPION, LEVOTHYROXINE Medications to discontinue per physician: VITAMINS/SUPPLEMENTS Date to take last dose: NO MORE UNTIL AFTER SURGERY Please no make-up, nail mongolian, hairspray, perfume, deodorant, or body powder the day of surgery. No jewelry (including any body piercings) or valuables the day of surgery, leave them at home. Please take a shower or bath the night before, or the morning of, surgery with an antibacterial soap. Wear comfortable, loose fitting clothing. - Jewelry must be removed prior to entering the operating room. Rings and piercings that are not removed may be cut off. - The hospital will not accept responsibility for valuables. - Please leave all valuables, including medications, at home the day of surgery. If you are going home after surgery, a licensed tractor trailer driver must drive you home. - NO public transportation without another adult. - We recommend that an adult stay with you for 24 hours following discharge. - We also recommend that you do not drive, make important decision, drink alcoholic beverages, or take any drugs that were not prescribed by your health care provider for at least 24 hours after your discharge time. Follow any additional instructions given to you from your surgeon. Telephone instructions given to LORENZA JAMES and asked if any additional questions and then verbalized understanding. Patient advised to call surgeon office or pre surgery nurse liaison [phone] if any additional questions.
[2021-10-18] VITALS (7 sets, daily range): BP systolic 102–118; BP diastolic 52–65; PULSE 64–87; RESP 13–16; TEMP 36.1–36.6; O2SAT 95–100
--- NOTE | ~2021-10-18 | XR_ITS ---
EXAMINATION: XR retrograde pyelo w/stent RT DATE: 10/18/2021 12:30 INDICATION: Right internal ureteral stent placement TECHNIQUE: Fluoroscopic images from a right internal ureteral stent placement are submitted for radha sam 68 seconds of fluoroscopy time. 7 fluoroscopic images FINDINGS: There is a right double-J internal ureteral stent projecting in expected position, with proximal [place] loop at the level of the renal pelvis and distal loop in the pelvis within the bladder lumen. IMPRESSION: 1. Right internal ureteral stent placement. Please refer to real-time procedural findings for tyrel ferrera. Reviewed, dictated and finalized at location B. INE BASTER IMPRESSION: 1. Right internal ureteral stent placement. Please refer to real-time procedu ral findings for details.
--- NOTE | 2021-10-18 06:57 | WPDHPUPDATE1 ---
History and Physical Update Update Date/Time: 10/18/21 06:57 History and Physical has been reviewed, including an updated exam of the patient. There are NO changes in the patient's condition. Risks, benefits, and alternatives have been discussed and questions answered. Patient agrees to proceed with procedure.
[2021-10-18] MEDS: LACTATED RINGERS 1,000 ML 30 ML IV CONT ×3 (10:11→12:33)
--- NOTE | 2021-10-18 10:32 | WPDANESEPPF ---
Anes - Initial Pre Proc Eval Procedure: Operation Date: 10/18/21 12:30 Proposed Procedures p Cystoscopy, Right Ureteroscopy, Possible Right Stone Extraction, Possible Stent Placement, - Deonte Yanez MD s Possible Holmium Laser Procedure - Deonte Yanez MD Date/Time: 10/18/21 10:32 Surgeon: Deonte Yanez MD Pre Op Diagnosis: ureteral stones Patient Data Age: 66 Gender: F Height: 1.6 m Weight: 89.6 kg Last Vital Signs Temp 36.6 C 10/18/21 10:16 Pulse 64 10/18/21 10:16 Resp 16 10/18/21 10:16 BP 104/52 L 10/18/21 10:16 Pulse Ox 97 10/18/21 10:16 Allergies Allergy/AdvReac Type Severity Reaction Status Date / Time hydrocodone Allergy Mild ITCHING Verified 10/18/21 09:53 pentazocine Allergy Mild ITCHING Verified 10/18/21 09:53 tapentadol Allergy Mild ITCHING Verified 10/18/21 09:53 tramadol Allergy Mild ITCHING Verified 10/18/21 09:53 codeine AdvReac Mild ITCHING Verified 10/18/21 09:53 Home Medications Medication Instructions Recorded Confirmed Type bupropion HCl 100 mg tablet,12 hr 100 mg PO TID tablet 07/16/20 10/18/21 History sustained-release quetiapine 100 mg tablet 100 mg PO HS tablet 09/24/20 10/18/21 History biotin 5 mg capsule 5 mg PO DAILY 02/19/21 10/18/21 History mecobalamin (vitamin B12) 5,000 5,000 mcg PO DAILY 02/19/21 10/18/21 History mcg disintegrating tablet levothyroxine 50 mcg tablet 50 mcg PO DAILY #90 tablet 05/14/21 10/18/21 Rx escitalopram oxalate [Lexapro] 5 mg PO HS 05/23/21 10/18/21 History multivitamin,gv-kfse-hppezosw 1 tablet PO DAILY 05/23/21 10/18/21 History Patient hx anesthesia problems: none Family hx anesthesia problems: none Results Review: All pre-operative results and documents have been reviewed as part of the pre-operative evaluation. [facility] Past Medical History Medical History Anxiety Arthritis Bipolar 1 disorder Chronic back pain Depression Hypothyroid Left knee pain Right knee pain Surgical History Surgical History H/O gastric bypass History of 2 sections History of arthroscopy of both knees History of foot surgery L arch of foot cyst removal History of hysterectomy History of tonsillectomy History of total knee replacement Family History Family History Sibling Family history of obesity Patient's sister is in good health Family history of malignant neoplasm of breast in first degree relative Family history of malignant neoplasm Father Family history of mental disorder Family history of cardiovascular disease Family history of malignant neoplasm Depression Hypertension Family history of elevated blood lipids Family history of alcoholism Family history of lung cancer, Onset Age: 72 Family history of coronary artery disease Family history of chronic obstructive pulmonary disease Family history of emphysema, Onset Age: 72 Mother Hypertension Patient's mother is in good health Family history of elevated blood lipids Cerebrovascular accident Family history of heart disease in male family member before age 55 Family history of chronic obstructive pulmonary disease Other Asthma Breast cancer Family history of allergic disorder Family history of migraine headaches Heart disease Social History Social History Smoking status: Never smoker Second hand tobacco smoke exposure: No Alcohol intake: never Alcohol use details: Social Substance use: never Substance use type: does not use Living arrangements: with family Gender identity (if verbalized by the patient): Female Spiritual care concerns: No Anes - Eval Final PreProcedure Day of Procedure 10/18/21 10:32 Patient weight: obese Heart: regular rate and rhythm Lungs: clear to auscul
[2021-10-18] MEDS: ceFAZolin 2 GM/D5W 50 ML 2 GM/50 ML BAG IVPB (11:47)
--- NOTE | 2021-10-18 12:51 | W.PM.PROC2 ---
Procedure Note - Detailed Date of Procedure 10/18/21 Pre-op Diagnosis Right ureteral stones Post-op Diagnosis same Procedure Performed Cystoscopy, right ureteroscopy with laser lithotripsy, stone extraction, retrograde pyelogram right ureteral stent placement Surgeon Deonte Yanez MD Anesthesia general Description of Procedure patient brought to the operative suite where she has prepped draped in routine sterile fashion while in dorsal lithotomy position after the uneventful induction of a general anesthetic. Cystoscopy is undertaken with a 19 F rigid cystoscope. Bladder neck and urethra endoscopically normal. Bladder is normal without neoplasm foreign body hyperemia or other pathological findings. She has a single orthotopic ureteral orifice bilaterally. 0.035 in glidewire was advanced to the right renal pelvis. The distal ureter was dilated with a 10 cm balloon. Ureteroscopy was undertaken with a short tapered semi-rigid ureteral scope. There are 3 separate obstructing stones along her right ureter, was to right UPJ of 1 in the mid ureter and 1 in the right distal ureter. The 2 more distal ones were extracted intact with a 1.9 F disposable stone basket. I used holmium laser to fracture the more proximal stone and then removed all pieces with the same basket. Retrograde pyelogram was obtained to outline the collecting system in a 4.8 F variable length stent was positioned with the proximal coil in the renal pelvis and distal coil in the bladder. Scopes and wires removed she was taken recovery room good condition. Drains Yes Packing No Pathology none sent Complications No immediate complications Condition stable Disposition PACU
[2021-10-18] MEDS: KETOROLAC 30 MG/ML VIAL (*BKC) IV PUSH (13:47)
== END 2021-10-18 14:20 | disposition home or self-care (01) ==
PROVIDERS: PCP Internal Medicine; Visit Provider Urology
PROC: (CPT 52352; principal; 2021-10-18 12:30)
PROC: (CPT 52356; 2021-10-18 12:30)
DX: N20.1 Calculus of ureter (principal); E03.9 Hypothyroidism, unspecified; F41.9 Anxiety disorder, unspecified; M19.90 Unspecified osteoarthritis, unspecified site; F31.9 Bipolar disorder, unspecified; E66.9 Obesity, unspecified; Z68.35 Body mass index [BMI] 35.0-35.9, adult
CPT/HCPCS: 52356; 74420; 82365; 88300; A9270; C1726; C1769; C1887; C2617; J0131; J0690; J1885; J2250; J2370; J2405; J2704; J3010; J7120; Q9966

== ENCOUNTER 2022-03-14 07:08 | Outpatient (CLI) | payer MEDICARE, OTHER, SELFPAY ==
[2022-03-14 08:12] LABS: Basophils Percent Auto 0.6 % (0.2-1.2); Eosinophils Absolute Auto 0.1 K/mm3 (0-0.3); Eosinophils Percent Auto 2.4 % (0-4.4); Hematocrit 39.9 % (37.0-47.0); Hemoglobin 12.6 g/dL (12.0-15.0); Immature Granulocyte Absolute 0.01 K/mm3 (0.00-0.031); Immature Granulocyte Percent A 0.2 % (0-0.5); Lymphocytes Absolute Auto 2.13 K/mm3 (0.9-3.2); Lymphocytes Percent Auto 39.7 % (18.3-44.2); Mean Corpuscular HGB Conc 31.6 g/dl (32-36); Mean Corpuscular Hemoglobin 28.4 pg (26-34); Mean Corpuscular Volume 90.1 fl (80-100); Mean Platelet Volume 11.9 fl (7.4-10.4); Monocytes Absolute Auto 0.6 K/mm3 (0.1-0.6); Monocytes Percent Auto 11.4 % (2.6-8.5); Neutrophils Absolute Auto 2.5 K/mm3 (1.3-6.7); Neutrophils Percent Auto 45.7 % (45.5-73.1); Platelet Count Result 165 k/mm3 (150-375); Red Blood Count 4.43 M/mm3 (4.2-5.4); Red Cell Distribution Width 13.2 % (11.5-14.5); White Blood Count 5.4 K/mm3 (4.5-10.0)
[2022-03-14 08:54] LABS: Alanine Aminotransferase 14 U/L (6-35); Albumin Level 4.2 g/dL (3.5-5.1); Alkaline Phosphatase 88 U/L (38-126); Anion Gap 5 mmol/L (8-16); Aspartate Amino Transferase 28 U/L (14-36); Bilirubin,Total 0.5 mg/dL (0.2-1.3); Blood Urea Nitrogen 22 mg/dL (7-17); Carbon Dioxide 28 mmol/L (22-30); Chloride 107 mmol/L (98-107); Cholesterol 159 mg/dL (0-200); Estimated Glomerular Filt Rate 50; Glucose 85 mg/dL (65-110); HDL Direct 53 mg/dL; Potassium 4.1 mmol/L (3.4-5.0); Sodium 140 mmol/L (137-145); Triglycerides 92 mg/dL (<150)
[2022-03-14 09:05] LABS: LDL Cholesterol Direct 66 mg/dL
[2022-03-14 09:15] LABS: Free T4 Free Thyroxine 0.98 ng/mL (0.78-2.19)
[2022-03-14 09:25] LABS: Thyroid Stimulating Hormone 0.753 uIU/mL (0.465-4.680)
[2022-03-14 10:23] LABS: Vitamin B12 > 1000.0 pg/mL (239-931)
== END 2022-03-14 07:09 | disposition home or self-care (01) ==
PROVIDERS: PCP Family Medicine; Visit Provider Family Medicine
DX: E66.3 Overweight (principal); Z98.84 Bariatric surgery status; Z13.220 Encounter for screening for lipoid disorders; E03.9 Hypothyroidism, unspecified; E55.9 Vitamin D deficiency, unspecified
CPT/HCPCS: 36415; 80053; 80061; 82306; 82607; 84439; 84443; 85025

== ENCOUNTER → 2022-06-10 11:29 | Outpatient (CLI) | payer MEDICARE, OTHER, SELFPAY ==
--- NOTE | ~2022-06-10 | CT_ITS ---
EXAMINATION: CT abdomen pelvis wo con DATE: 06/10/2022 11:43 INDICATION: Right kidney stone. Lithotripsy 6 months ago. TECHNIQUE: Computed tomography (CT) of the abdomen and pelvis was performed without intravenous contr ast. Automated exposure control and iterative reconstruction technique were employed. Exam dose: 769 .25 mGy-cm total exam DLP. COMPARISON: 09/30/2021 CT abdomen pelvis FINDINGS: The lung bases are clear. Normal heart size. There is trace pericardial fluid. No pleural e ffusion. Small sliding hiatal hernia. Postoperative change of the stomach. The liver, gallbladder, bile ducts, spleen, pancreas, pancreatic duct and adrenal glands are unremark able. There is suggestion of 2 very small subtle punctate nonobstructing right renal stones. No other urina ry tract calculus or hydroureteronephrosis. The urinary bladder is unremarkable. Status post hysterectomy. Normal appendix. Diverticulosis of the left colon; no CT evidence of diverticulitis. No bowel obstruc tion or intraperitoneal free air. Small fat-containing umbilical hernia. Diffuse idiopathic skeletal hyperostosis of the thoracic spine. Degenerative changes apophyseal joints with associated grade 1 anterolisthesis at L4-5. No suspicious osteolytic or osteoblastic lesions are noted.. IMPRESSION: Right renal scarring and minimal right nonobstructive nephrolithiasis Small sliding hiatal hernia Postoperative change of the stomach Diverticulosis of the colon; no evidence of diverticulitis Status post hysterectomy Reviewed, dictated and finalized at Location A. Reviewed, dictated and finalized at location B. IMPRESSION: Right renal scarring and minimal right nonobstructive nephrolithia sis Small sliding hiatal hernia Postoperative change of the stomach Diverticulosis of the colon; no evidence of diverticulitis Status post hysterectomy
== END ==
PROVIDERS: PCP Family Medicine; Visit Provider Urology
DX: N20.0 Calculus of kidney (principal); K44.9 Diaphragmatic hernia without obstruction or gangrene; K57.30 Diverticulosis of large intestine without perforation or abscess without bleeding
CPT/HCPCS: 74176

== ENCOUNTER 2022-06-13 14:50 | Outpatient (CLI) | payer MEDICARE, OTHER, SELFPAY ==
[2022-06-13 15:13] LABS: Anion Gap 8 mmol/L (8-16); Blood Urea Nitrogen 17 mg/dL (7-17); Calcium 9.1 mg/dL (8.4-10.2); Carbon Dioxide 25 mmol/L (22-30); Chloride 105 mmol/L (98-107); Estimated Glomerular Filt Rate 45; Glucose 93 mg/dL (65-110); Potassium 4.3 mmol/L (3.4-5.0); Sodium 138 mmol/L (137-145)
== END 2022-06-13 14:51 | disposition home or self-care (01) ==
LOC: ANHLAB 14:51
PROVIDERS: PCP Family Medicine; Visit Provider Nurse Practitioner Family
DX: R79.89 Other specified abnormal findings of blood chemistry (principal); N28.9 Disorder of kidney and ureter, unspecified
CPT/HCPCS: 36415; 80048; 82607

== ENCOUNTER 2022-07-07 12:20 | Outpatient (CLI) | payer MEDICARE, OTHER, SELFPAY ==
[2022-07-07 13:01] LABS: Anion Gap 12 mmol/L (8-16); Blood Urea Nitrogen 16 mg/dL (7-17); Calcium 9.4 mg/dL (8.4-10.2); Carbon Dioxide 30 mmol/L (22-30); Chloride 101 mmol/L (98-107); Estimated Glomerular Filt Rate 45; Glucose 85 mg/dL (65-110); Potassium 4.1 mmol/L (3.4-5.0); Sodium 143 mmol/L (137-145)
== END 2022-07-07 12:21 | disposition home or self-care (01) ==
LOC: ANHLAB 12:23
PROVIDERS: PCP Family Medicine; Visit Provider Nurse Practitioner Family
DX: N28.9 Disorder of kidney and ureter, unspecified (principal)
CPT/HCPCS: 36415; 80048

== ENCOUNTER 2022-07-11 00:16 | Day surgery (SDC) | payer MEDICARE, OTHER, SELFPAY ==
[2022-06-26 14:33] VITALS: BMI 32.7
--- NOTE | 2022-07-10 15:41 | PM.HPGS ---
History of Present Illness History of Present Illness Consent: Risks, benefits, and alternatives have been discussed and questions answered. Patient agrees to proceed with procedure. Chief complaint: hx of colon polyps Narrative: Medardo Nelson is a 67 year old female referred for colon cancer screening. She has a history of colon polyps. Review of Systems Review of Systems: All systems reviewed & are unremarkable except as noted in HPI and below PMFSH Past Medical History Medical History Anxiety Arthritis Bipolar 1 disorder BMI over 35 Chronic back pain Depression Hypothyroid Left knee pain Right knee pain Screen for colon cancer Screening for lipid disorders Weight gain following gastric bypass surgery Surgical History Surgical History H/O gastric bypass History of 2 sections History of arthroscopy of both knees History of foot surgery L arch of foot cyst removal History of hysterectomy History of tonsillectomy History of total knee replacement Family History Family History Sibling Family history of obesity Patient's sister is in good health Family history of malignant neoplasm of breast in first degree relative Family history of malignant neoplasm Father Family history of mental disorder Depression Hypertension Family history of elevated blood lipids Family history of alcoholism Family history of lung cancer, Onset Age: 72 Family history of coronary artery disease Family history of chronic obstructive pulmonary disease Family history of emphysema, Onset Age: 72 Family history of cardiovascular disease Family history of malignant neoplasm Mother Hypertension Patient's mother is in good health Family history of elevated blood lipids Cerebrovascular accident Family history of heart disease in male family member before age 55 Family history of chronic obstructive pulmonary disease Other Asthma Breast cancer Family history of allergic disorder Family history of migraine headaches Heart disease Social History Social History Smoking status: Never smoker Second hand tobacco smoke exposure: No Alcohol intake: current Alcohol use details: once or twice a year Substance use: never Substance use type: does not use Living arrangements: with family Gender identity (if verbalized by the patient): Female Spiritual care concerns: No Meds Home Medications and Allergies Home Medications Medication Instructions Recorded Confirmed Type bupropion HCl 100 mg tablet,12 hr 100 mg PO TID 07/16/20 06/26/22 History sustained-release (Wellbutrin SR) quetiapine 100 mg tablet (Seroquel) 100 mg PO HS 09/24/20 06/26/22 History escitalopram oxalate 5 mg tablet 5 mg PO HS 05/23/21 06/26/22 History (Lexapro) multivitamin,om-yqgk-exqwwwgx 1 tablet PO DAILY 05/23/21 06/26/22 History levothyroxine 50 mcg tablet 50 mcg PO DAILY #90 tabs 05/13/22 06/26/22 Rx suvorexant 20 mg tablet (Belsomra) 20 mg PO HS PRN Insomnia 06/26/22 06/26/22 History Allergies Allergy/AdvReac Type Severity Reaction Status Date / Time hydrocodone Allergy Mild ITCHING Verified 07/11/22 11:51 pentazocine Allergy Mild ITCHING Verified 07/11/22 11:51 tapentadol Allergy Mild ITCHING Verified 07/11/22 11:51 tramadol Allergy Mild ITCHING Verified 07/11/22 11:51 codeine AdvReac Mild ITCHING Verified 07/11/22 11:51 Exam Resp: Auscultation: clear to auscultation bilaterally Cardio: Rate: regular rate Rhythm: regular rhythm GI: GI Palp: Yes Soft to palpation and No Tenderness to palpation present (GI) Assessment and Plan Assessment and plan (1) Screen for colon cancer: Code(s): Z12.11 - Encounter for screening for malignant neoplasm of colon Status: Acute
[2022-07-11 11:53] VITALS: BP 121/76; PULSE 76; RESP 20; TEMP 36.6; O2SAT 100; BMI 34.0
--- NOTE | 2022-07-11 11:59 | WPDANESEPPF ---
Anes - Initial Pre Proc Eval Procedure: Operation Date: 07/11/22 13:00 Proposed Procedures p Screening Colonoscopy - Winston Killian MD Date/Time: 07/11/22 11:59 Surgeon: Winston Killian MD Pre Op Diagnosis: hx of colon polyps Patient Data Age: 67 Gender: F Height: 1.63 m Weight: 90 kg Last Vital Signs Temp 97.9 F 07/11/22 11:53 Pulse 76 07/11/22 11:53 Resp 20 07/11/22 11:53 BP 121/76 07/11/22 11:53 Pulse Ox 100 07/11/22 11:53 O2 Del Method Room Air 07/11/22 11:53 Allergies Allergy/AdvReac Type Severity Reaction Status Date / Time hydrocodone Allergy Mild ITCHING Verified 07/11/22 11:51 pentazocine Allergy Mild ITCHING Verified 07/11/22 11:51 tapentadol Allergy Mild ITCHING Verified 07/11/22 11:51 tramadol Allergy Mild ITCHING Verified 07/11/22 11:51 codeine AdvReac Mild ITCHING Verified 07/11/22 11:51 Home Medications Medication Instructions Recorded Confirmed Type bupropion HCl 100 mg tablet,12 hr 100 mg PO TID 07/16/20 06/26/22 History sustained-release (Wellbutrin SR) quetiapine 100 mg tablet (Seroquel) 100 mg PO HS 09/24/20 06/26/22 History escitalopram oxalate 5 mg tablet 5 mg PO HS 05/23/21 06/26/22 History (Lexapro) multivitamin,yz-vqjo-yyevgcmu 1 tablet PO DAILY 05/23/21 06/26/22 History levothyroxine 50 mcg tablet 50 mcg PO DAILY #90 tabs 05/13/22 06/26/22 Rx suvorexant 20 mg tablet (Belsomra) 20 mg PO HS PRN Insomnia 06/26/22 06/26/22 History Patient hx anesthesia problems: none Family hx anesthesia problems: none Results Review: All pre-operative results and documents have been reviewed as part of the pre-operative evaluation. [facility] Past Medical History Medical History (Updated 06/10/22 @ 14:06 by Apollo Ham MD) Anxiety Arthritis Bipolar 1 disorder BMI over 35 Chronic back pain Depression Hypothyroid Left knee pain Right knee pain Screen for colon cancer Screening for lipid disorders Weight gain following gastric bypass surgery Surgical History Surgical History H/O gastric bypass History of 2 sections History of arthroscopy of both knees History of foot surgery L arch of foot cyst removal History of hysterectomy History of tonsillectomy History of total knee replacement Family History Family History Sibling Family history of obesity Patient's sister is in good health Family history of malignant neoplasm of breast in first degree relative Family history of malignant neoplasm Father Family history of mental disorder Depression Hypertension Family history of elevated blood lipids Family history of alcoholism Family history of lung cancer, Onset Age: 72 Family history of coronary artery disease Family history of chronic obstructive pulmonary disease Family history of emphysema, Onset Age: 72 Family history of cardiovascular disease Family history of malignant neoplasm Mother Hypertension Patient's mother is in good health Family history of elevated blood lipids Cerebrovascular accident Family history of heart disease in male family member before age 55 Family history of chronic obstructive pulmonary disease Other Asthma Breast cancer Family history of allergic disorder Family history of migraine headaches Heart disease Social History Social History Smoking status: Never smoker Second hand tobacco smoke exposure: No Alcohol intake: current Alcohol use details: once or twice a year Substance use: never Substance use type: does not use Living arrangements: with family Gender identity (if verbalized by the patient): Female Spiritual care concerns: No Anes - Eval Final PreProcedure Day of Procedure 07/11/22 11:59 Patient weight: normal Heart: regular rate and rhythm Lungs: clear to auscultation
[2022-07-11] MEDS: LACTATED RINGERS 1,000 ML 150 ML IV CONT (12:01)
[2022-07-11] MEDS: SIMETHICONE ORAL SUSPENSION 20 MG/0.3 ML 30 ML BOTTLE 0.6 ML IRRIGATION (12:33)
[2022-07-11 12:41] VITALS: BP 81/46; PULSE 63; RESP 17; O2SAT 97
[2022-07-11 12:51] VITALS: BP 97/57; PULSE 57; RESP 15; O2SAT 97
[2022-07-11 13:01] VITALS: BP 100/55; PULSE 62; RESP 16; O2SAT 100
== END 2022-07-11 13:05 | disposition home or self-care (01) ==
PROVIDERS: PCP Family Medicine; Visit Provider Internal Medicine Gastroenterology
PROC: 0DJD8ZZ Inspection of Lower Intestinal Tract, Via Natural or Artificial Opening Endoscopic (ICD-10-PCS; CPT 45378; principal; 2022-07-11 13:00)
DX: Z12.11 Encounter for screening for malignant neoplasm of colon (principal); K57.30 Diverticulosis of large intestine without perforation or abscess without bleeding; Z86.010 Personal history of colon polyps; E03.9 Hypothyroidism, unspecified; F31.9 Bipolar disorder, unspecified; F41.9 Anxiety disorder, unspecified; Z98.84 Bariatric surgery status
CPT/HCPCS: G0105; J2704; J7120

== ENCOUNTER → 2022-09-01 12:05 | Outpatient (CLI) | payer MEDICARE, OTHER, SELFPAY ==
--- NOTE | ~2022-09-01 | MM_ITS ---
EXAMINATION: MM screening paty BI w urbano HISTORY: Screening TECHNIQUE: Craniocaudal and mediolateral oblique 3-D tomosynthesis images were obtained and synthetic 2-D images were generated. CAD analysis was submitted and interpreted. COMPARISON: Comparison to multiple prior studies sequentially, with oldest reviewed study dated 06/17. BREAST PARENCHYMAL COMPOSITION: There are scattered areas of fibroglandular density. FINDINGS: There is no evidence of suspicious mass, calcification, or architectural distortion to sugg est malignancy in either breast. There has been no suspicious interval change. IMPRESSION: 1. No mammographic evidence of malignancy. 2. Recommend routine screening mammography in one year. BI-RADS Category 1: Negative Reviewed, dictated and finalized at location B. MACHINE OPERATOR
--- NOTE | ~2022-09-01 | XR_ITS ---
EXAMINATION: XR chest 2V DATE: 09/01/2022 12:19 INDICATION: Cough and shortness of breath TECHNIQUE: PA and lateral views of the chest are obtained. COMPARISON: 04/15/2021 FINDINGS: The lungs are free of acute opacities. No pleural effusion or pneumothorax. The cardiomedia stinal silhouette is normal. There are bridging osteophytes at multiple levels in the spine, consiste nt with diffuse idiopathic skeletal hyperostosis (DISH). IMPRESSION: 1. No acute cardiopulmonary abnormality. Reviewed, dictated and finalized at location A. DESIGNER
== END ==
PROVIDERS: PCP Family Medicine; Visit Provider Family Medicine
DX: Z12.31 Encounter for screening mammogram for malignant neoplasm of breast (principal); R05.9 Cough, unspecified; R06.02 Shortness of breath
CPT/HCPCS: 71046; 77063; 77067

== ENCOUNTER 2023-10-14 11:14 | Outpatient (CLI) | payer MEDICARE, OTHER, SELFPAY ==
--- NOTE | ~2023-10-14 | XR_ITS ---
Left Hand Technique: PA, oblique, and lateral views were obtained. Clinical History: Pain Findings: Probable tiny oblique fracture at the volar aspect of the base the fifth middle phalanx see n on lateral view. No other fracture or dislocation. Joint spaces are preserved. Soft tissues are unr emarkable. Impression: Probable tiny, acute, oblique fracture of the volar aspect of the base of the fifth middle phalanx. Reviewed, dictated and finalized at location M. IAMENTARY LIBRARIAN Impression: Probable tiny, acute, oblique fracture of the volar aspect of the base of the f ifth middle phalanx.
--- NOTE | ~2023-10-14 | XR_ITS ---
Right Shoulder Technique: AP and scapular Y views were obtained. Clinical History: Pain Findings: No fracture or dislocation is seen. Osseous alignment is anatomic. The glenohumeral and acr omioclavicular joint spaces are preserved. Soft tissues are unremarkable. Impression: Unremarkable right shoulder radiographs. Reviewed, dictated and finalized at [facility]. H TRUCK DRIVER Impression: Unremarkable right shoulder radiographs.
[2023-10-14 11:39] LABS: Basophils Percent Auto 0.9 % (0.2-1.2); Eosinophils Absolute Auto 0.1 K/mm3 (0-0.3); Eosinophils Percent Auto 3.1 % (0-4.4); Hemoglobin 12.6 g/dL (12.0-15.0); Immature Granulocyte Absolute 0.01 K/mm3 (0.00-0.031); Immature Granulocyte Percent A 0.2 % (0-0.5); Lymphocytes Absolute Auto 1.51 K/mm3 (0.9-3.2); Mean Corpuscular HGB Conc 31.5 g/dl (32-36); Mean Corpuscular Hemoglobin 28.1 pg (26-34); Mean Corpuscular Volume 89.1 fl (80-100); Mean Platelet Volume 10.5 fl (7.4-10.4); Monocytes Absolute Auto 0.4 K/mm3 (0.1-0.6); Monocytes Percent Auto 9.6 % (2.6-8.5); Neutrophils Absolute Auto 2.4 K/mm3 (1.3-6.7); Neutrophils Percent Auto 53.2 % (45.5-73.1); Platelet Count Result 186 k/mm3 (150-375); Red Blood Count 4.49 M/mm3 (4.2-5.4); Red Cell Distribution Width 14.1 % (11.5-14.5); White Blood Count 4.6 K/mm3 (4.5-10.0)
[2023-10-14 11:52] LABS: Alanine Aminotransferase 20 U/L (6-35); Albumin Level 4.1 g/dL (3.5-5.1); Alkaline Phosphatase 81 U/L (38-126); Anion Gap 6 mmol/L (8-16); Aspartate Amino Transferase 32 U/L (14-36); Bilirubin,Total 0.5 mg/dL (0.2-1.3); Blood Urea Nitrogen 23 mg/dL (7-17); Calcium 8.9 mg/dL (8.4-10.2); Carbon Dioxide 28 mmol/L (22-30); Chloride 106 mmol/L (98-107); Cholesterol 160 mg/dL (0-200); Estimated Glomerular Filt Rate 55; Glucose 91 mg/dL (65-110); HDL Direct 59 mg/dL; Potassium 4.2 mmol/L (3.4-5.0); Sodium 140 mmol/L (137-145); Triglycerides 100 mg/dL (<150)
[2023-10-14 12:02] LABS: LDL Cholesterol Direct 73 mg/dL
== END 2023-10-14 11:15 | disposition home or self-care (01) ==
LOC: ANHLAB 11:19
PROVIDERS: PCP Family Medicine; Visit Provider Physician Assistant Medical
DX: N28.9 Disorder of kidney and ureter, unspecified (principal); R79.89 Other specified abnormal findings of blood chemistry; E03.9 Hypothyroidism, unspecified; Z13.220 Encounter for screening for lipoid disorders; E78.5 Hyperlipidemia, unspecified; M79.642 Pain in left hand; M79.645 Pain in left finger(s); M25.511 Pain in right shoulder
CPT/HCPCS: 36415; 73030; 73120; 80053; 80061; 84439; 84443; 85025

== ENCOUNTER → 2023-11-11 12:09 | Outpatient (CLI) | payer MEDICARE, OTHER, SELFPAY ==
--- NOTE | ~2023-11-11 | MM_ITS ---
EXAMINATION: MM screening paty BI w urbano HISTORY: Screening TECHNIQUE: Craniocaudal and mediolateral oblique 3-D tomosynthesis images were obtained and synthetic 2-D images were generated. CAD analysis was submitted and interpreted. COMPARISON: Comparison to multiple prior studies sequentially, with oldest reviewed study dated 06/17. BREAST PARENCHYMAL COMPOSITION: Not dense: There are scattered areas of fibroglandular density. FINDINGS: There is developing asymmetry in the upper outer quadrant of the right breast posteriorly. The left breast is stable without evidence for malignancy. IMPRESSION: 1. Developing right breast asymmetry. 2. Additional mammographic views and possible breast ultrasound are recommended. BI-RADS Category 0: Incomplete: Needs additional imaging evaluation. Reviewed, dictated and finalized at location A. S FEEDER BROOMCORN IMPRESSION: 1. Developing right breast asymmetry. 2. Additional mammographic views and possible breast ultrasound are recommended . BI-RADS Category 0: Incomplete: Needs additional imaging evaluation.
== END ==
PROVIDERS: Visit Provider Family Medicine
DX: Z12.31 Encounter for screening mammogram for malignant neoplasm of breast (principal); R92.8 Other abnormal and inconclusive findings on diagnostic imaging of breast
CPT/HCPCS: 77063; 77067

== ENCOUNTER 2023-11-13 15:38 | Outpatient (CLI) | payer MEDICARE, OTHER, SELFPAY ==
[2023-11-13 16:04] LABS: Anion Gap 8 mmol/L (8-16); Blood Urea Nitrogen 24 mg/dL (7-17); Calcium 9.6 mg/dL (8.4-10.2); Carbon Dioxide 26 mmol/L (22-30); Chloride 106 mmol/L (98-107); Estimated Glomerular Filt Rate 55; Glucose 96 mg/dL (65-110); Potassium 4.3 mmol/L (3.4-5.0); Sodium 140 mmol/L (137-145)
== END 2023-11-13 15:39 | disposition home or self-care (01) ==
LOC: ANHLAB 15:40
PROVIDERS: PCP Family Medicine; Visit Provider Physician Assistant Medical
DX: N28.9 Disorder of kidney and ureter, unspecified (principal)
CPT/HCPCS: 36415; 80048

== ENCOUNTER 2023-12-15 09:21 | Outpatient (CLI) | payer MEDICARE, OTHER, SELFPAY ==
--- NOTE | ~2023-12-15 | MM_ITS ---
EXAMINATION: MM diagnostic paty RT w urbano HISTORY: Developing asymmetry reported in the upper outer quadrant of the right breast posteriorly on November 11, 2023 screening mammogram TECHNIQUE: Additional 3-D tomosynthesis images of right breast were performed and synthetic 2-D image s were generated. CAD analysis was submitted and interpreted. COMPARISON: November 11, 2023 bilateral screening mammogram September 01, 2022 bilateral screening mammogram FINDINGS: The Tomosynthesis compression view reveals no abnormality and no significant change since 1 11/02/2021. No abnormality is evident on the other supplemental views today. [facility]. IMPRESSION: 1. No mammographic evidence of malignancy 2. Routine annual mammographic screening is recommended BI-RADS Category 1: Negative Reviewed, dictated and finalized at location A.
== END 2023-12-15 09:22 ==
LOC: MICIMG 09:22
PROVIDERS: PCP Physician Assistant Medical; Visit Provider Physician Assistant Medical
DX: R92.8 Other abnormal and inconclusive findings on diagnostic imaging of breast (principal)
CPT/HCPCS: 77061; 77065; G0279

== ENCOUNTER 2024-01-06 07:58 | Outpatient (CLI) | payer MEDICARE, OTHER, SELFPAY ==
--- NOTE | ~2024-01-06 | MR_ITS ---
EXAMINATION: MR foot RT wo con DATE: 01/06/2024 08:31 INDICATION: Ganglion cyst at the right foot TECHNIQUE: Magnetic resonance imaging (MRI) of the right fore/mid foot was performed without intraven ous contrast. Sequences included sagittal T1-weighted FSE, sagittal fluid sensitive FSE STIR, coronal PD-weighted FS FSE, coronal T1-weighted FSE, axial PD-weighted FS FSE, and axial PD-weighted FSE. A jade was placed over the palpable lump of concern. COMPARISON: None FINDINGS: Bone alignment is normal. No fracture or pathologic marrow replacing process. There is subarticular e danuta-like and cystlike change at the medial cuneiform underlying its articulation with the base of th e second metatarsal with additional subarticular edema-like signal change along the distal articular surface of the middle cuneiform. There is associated moderate osteoarthritis at the first and second tarsal metatarsal joints. Mild osteoarthritis at the remaining tarsal metatarsal joints of the first metatarsophalangeal and multiple interphalangeal joints. Multilobulated likely ganglion cyst measurin g 11 x 11 x 8 mm positioned dorsal to the base of the first and second metatarsals likely arising fro m the tarsal metatarsal joints and located immediately deep to the marker indicating the palpable abn ormality of concern. No other masses or abnormal fluid collections identified. The Lisfranc ligament complex is normal. The collateral ligament complexes at the metatarsophalangeal and interphalangeal j oints are normal. Visualized portion of the flexor and extensor tendons are normal. Physiologic amoun t fluid in the joint spaces. IMPRESSION: 1. Moderate osteoarthritis at the right first and second tarsal metatarsal joints with likely associa antony 11 x 11 x 8 mm ganglion cyst located dorsal to the base of the first and second metatarsals and c orrespond to the palpable lump of concern. Reviewed, dictated and finalized at location A. IMPRESSION: 1. Moderate osteoarthritis at the right first and second tarsal metatarsal join ts with likely associated 11 x 11 x 8 mm ganglion cyst located dorsal to the ba se of the first and second metatarsals and correspond to the palpable lump of c taylorradore.
== END 2024-01-06 07:59 ==
LOC: MICIMG 08:00
PROVIDERS: PCP Family Medicine; Visit Provider Podiatrist Foot & Ankle Surgery
DX: M67.471 Ganglion, right ankle and foot (principal); M19.071 Primary osteoarthritis, right ankle and foot
CPT/HCPCS: 73718

== ENCOUNTER 2024-02-16 07:35 | Outpatient (CLI) | payer MEDICARE, OTHER, SELFPAY ==
--- NOTE | ~2024-02-16 | MR_ITS ---
MRI of the right shoulder Technique: Axial proton-density fat-sat images, coronal proton density fat-sat and T2 fat-sat images, and sagittal T1-weighted and T2 fat-sat images were acquired. Clinical History: Other shoulder lesion, pain Findings: There is moderate to advanced AC joint degenerative change. There is bony productive change particularly at the distal clavicle. Coracoclavicular, coracoacromial, and coracohumeral ligaments a re probably intact. There is moderate to severe supraspinatus and infraspinatus tendinosis distally. There is intramuscul ar cyst at the myotendinous junction region of the supraspinatus muscle belly, probably indicating un derlying interstitial tear. This is somewhat elongated along the plane of the myotendinous junction r egion/muscle belly, measuring up to approximately 3 cm in length. Subscapularis tendon is intact with mild to moderate tendinosis. Tendon of long head of the biceps is intact. No definite labral tear seen. Inferior glenohumeral ligament is intact. Minimal glenohumeral joint effusion present. No significant degenerative change of the glenohumeral joint. No fluid distention of the subacromial/subdeltoid bur sa. No muscle atrophy or edema otherwise. Impression: Probable interstitial tear near the myotendinous junction region of the supraspinatus muscle belly wi th an elongated 3 cm intramuscular cyst in this region. Moderate to advanced rotator cuff tendinosis overall, as detailed above. Moderate to advanced AC joint degenerative change. Reviewed, dictated and finalized at location . Impression: Probable interstitial tear near the myotendinous junction region of the suprasp inatus muscle belly with an elongated 3 cm intramuscular cyst in this region. Moderate to advanced rotator cuff tendinosis overall, as detailed above. Moderate to advanced AC joint degenerative change.
== END 2024-02-16 07:36 ==
LOC: MICIMG 07:36
PROVIDERS: PCP Family Medicine; Visit Provider Orthopaedic Surgery
DX: M75.81 Other shoulder lesions, right shoulder (principal); M75.31 Calcific tendinitis of right shoulder; M19.011 Primary osteoarthritis, right shoulder
CPT/HCPCS: 73221

== ENCOUNTER 2024-02-23 10:08 | Outpatient (CLI) | payer MEDICARE, OTHER, SELFPAY ==
[2024-02-23 11:56] LABS: Anion Gap 4 mmol/L (4-12); Blood Urea Nitrogen 23 mg/dL (7-17); Calcium 9.4 mg/dL (8.4-10.2); Carbon Dioxide 30 mmol/L (22-30); Chloride 107 mmol/L (98-107); Glucose 60 mg/dL (65-110); Potassium 4.3 mmol/L (3.4-5.0); Sodium 141 mmol/L (137-145)
[2024-02-23 12:07] LABS: Estimated Glomerular Filt Rate 55
== END 2024-02-23 10:09 | disposition home or self-care (01) ==
PROVIDERS: PCP Family Medicine; Visit Provider Physician Assistant Medical
DX: N28.9 Disorder of kidney and ureter, unspecified (principal)
CPT/HCPCS: 36415; 80048

== ENCOUNTER 2024-04-28 19:22 | Emergency (ER) | payer MEDICARE, OTHER, SELFPAY ==
--- NOTE | ~2024-04-28 | CT_ITS ---
CT abdomen pelvis w con Ordering provider: Ayo Lyle MD History: 68 years Female with . abd pain n/v, distention . Comparison: June 10, 2022 Technique: CT abdomen and pelvis with IV and without oral contrast. Automated exposure control and it erative reconstruction technique were employed. The dose-length product was 924.89 mGy-cm. 100 mL Omn ipaque 350 was given IV. Findings: VISUALIZED LOWER CHEST: Normal. UPPER ABDOMINAL ORGANS: Liver: Normal. Gallbladder: Normal. Spleen: Normal. Stomach/duodenum: Postoperative changes. Sliding hiatus hernia. Pancreas: Normal. Adrenals: Normal. Kidneys: Scarring in the medial aspect of the right kidney. Tiny stones noted. Possible tiny calcific ation the left kidney midpole. Mild fullness of the left renal pelvis. PELVIC ORGANS: The bladder is slightly underfilled with slightly thickened wall. BOWEL AND MESENTERY: Colon: No evidence of diverticulitis. No evidence of appendicitis. Small Bowel: Normal. No obstructio n. Peritoneum/mesentery: No free air or free fluid. No mesenteric lymphadenopathy. RETROPERITONEUM: Normal aorta. Congested IVC. No retroperitoneal lymphadenopathy. MUSCULOSKELETAL: Superficial soft tissues: The superficial soft tissues are normal. Bones: Age appropriate degenerative changes of the spine. IMPRESSION: 1. Small sliding hiatus hernia with postoperative changes in the stomach. 2. No evidence of appendicitis diverticulitis, or intestinal obstruction. 3. Scarring in the right kidney with possible tiny stones in both kidneys. Mild fullness of the left renal pelvis. Reviewed, dictated and finalized at location A. IMPRESSION: 1. Small sliding hiatus hernia with postoperative changes in the stomach. 2. No evidence of appendicitis diverticulitis, or intestinal obstruction. 3. Scarring in the right kidney with possible tiny stones in both kidneys. Mil d fullness of the left renal pelvis.
[2024-04-28 19:42] VITALS: BP 140/74; PULSE 67; RESP 16; TEMP 36.4; O2SAT 98
[2024-04-28] MEDS: ONDANSETRON INJ 4 MG/2 ML VIAL IV PUSH (20:20)
[2024-04-28] MEDS: LACTATED RINGERS 1,000 ML 999 ML IV CONT (20:21)
[2024-04-28] MEDS: FAMOTIDINE 20 MG/2 ML VIAL IV PUSH (20:21)
[2024-04-28 20:30] LABS: Basophils Percent Auto 0.2 % (0.2-1.2); Eosinophils Absolute Auto 0.1 K/mm3 (0-0.3); Eosinophils Percent Auto 0.5 % (0-4.4); Hematocrit 40.4 % (37.0-47.0); Hemoglobin 12.7 g/dL (12.0-15.0); Immature Granulocyte Absolute 0.03 K/mm3 (0.00-0.031); Immature Granulocyte Percent A 0.3 % (0-0.5); Lymphocytes Percent Auto 20.9 % (18.3-44.2); Mean Corpuscular HGB Conc 31.4 g/dl (32-36); Mean Corpuscular Hemoglobin 27.1 pg (26-34); Mean Corpuscular Volume 86.3 fl (80-100); Mean Platelet Volume 10.9 fl (7.4-10.4); Monocytes Absolute Auto 0.9 K/mm3 (0.1-0.6); Monocytes Percent Auto 8.9 % (2.6-8.5); Neutrophils Absolute Auto 7.3 K/mm3 (1.3-6.7); Neutrophils Percent Auto 69.2 % (45.5-73.1); Platelet Count Result 282 k/mm3 (150-375); Red Blood Count 4.68 M/mm3 (4.2-5.4); Red Cell Distribution Width 13.6 % (11.5-14.5); White Blood Count 10.6 K/mm3 (4.5-10.0)
[2024-04-28 20:38] LABS: Add Urine Microscopic? YES; Appearance Urine Clear (Clear); Bacteria Urine None Seen /hpf; Bilirubin Urine Negative (Negative); Blood Urine Negative (Negative); Calcium Oxalate Crystals Urine Present /hpf; Color Urine Yellow (Yellow); Glucose Urine UA Negative (Negative); Ketones Urine Negative (Negative); Leukocyte Esterase Ur 1+ LEU/UL (Negative); Need Manual Microscopic Reviewed; Nitrate Urine Negative (Negative); Non Pathogenic Casts 0-2; Protein Urine Negative (Negative); Specific Grav Ur 1.019 (1.001-1.035); Squamous Epithelial Cell Urine None Seen /hpf (Few); Urobilinogen Urine 0.2 mg/dL (<2.0); pH Urine 5.5 (5.0-9.0)
[2024-04-28 20:40] LABS: Lactic Acid Reflex 1.1 mmol/L (0.7-2.0)
--- NOTE | 2024-04-28 20:40 | ED.ABDPAIN ---
HPI - Abdominal Pain General Chief Complaint: Abdominal Pain Stated Complaint: abdominal pain Time Seen by Provider: 04/28/24 19:24 History of Present Illness HPI narrative: This is a 68-year-old female with a past medical history including prior gastric bypass, multiple abdominal surgeries including C-sections. She presents today with a chief complaint of abdominal distension, abdominal pain that is vague and some nausea without vomiting. She states that this his been intermittently worsening over last several days. Patient is having bowel movements but states they are smaller in caliber than previous. No chest pain or difficulty in breathing. No fevers, chills. No abdominal trauma or in the recent illnesses. No dysuria, hematuria or vaginal pain or discharge. Was previously in her normal state of health otherwise. Related Data Home Medications Medication Instructions Recorded Confirmed bupropion HCl 100 mg tablet,12 hr 100 mg PO TID 07/16/20 04/21/24 sustained-release (Wellbutrin SR) quetiapine 100 mg tablet (Seroquel) 100 mg PO HS 09/24/20 04/21/24 multivitamin,[id number] 1 tablet PO DAILY 05/23/21 04/21/24 escitalopram oxalate 5 mg tablet 5 mg PO DAILY 02/25/24 04/21/24 (Lexapro) Allergies Allergy/AdvReac Type Severity Reaction Status Date / Time hydrocodone Allergy Mild Itching Verified 04/21/24 09:46 pentazocine Allergy Mild Itching Verified 04/21/24 09:46 tapentadol Allergy Mild Itching Verified 04/21/24 09:46 tramadol Allergy Mild Itching Verified 04/21/24 09:46 codeine AdvReac Mild Itching Verified 04/21/24 09:46 Review of Systems Review of Systems: As reviewed above in the HPI [facility] Past Medical History Medical History Adult BMI 33.0-33.9 kg/sq m Anxiety Arthritis Arthritis of hand, right Bipolar 1 disorder BMI 34.0-34.9,adult BMI 36.0-36.9,adult BMI over 35 Chronic back pain Depression Finger fracture, right Hypothyroid Left knee pain Right knee pain Screen for colon cancer Screening for lipid disorders Weight gain following gastric bypass surgery Surgical History Surgical History H/O gastric bypass History of 2 sections History of arthroscopy of both knees History of foot surgery L arch of foot cyst removal History of hysterectomy History of tonsillectomy History of total knee replacement Family History Family History Sibling Family history of obesity Patient's sister is in good health Family history of malignant neoplasm of breast in first degree relative Family history of malignant neoplasm Father Family history of mental disorder Depression Hypertension Family history of elevated blood lipids Family history of alcoholism Family history of lung cancer, Onset Age: 72 Family history of coronary artery disease Family history of chronic obstructive pulmonary disease Family history of emphysema, Onset Age: 72 Family history of cardiovascular disease Family history of malignant neoplasm Mother Hypertension Patient's mother is in good health Family history of elevated blood lipids Cerebrovascular accident Family history of heart disease in male family member before age 55 Family history of chronic obstructive pulmonary disease Sibling , breast cancer 2014 Breast cancer Other Asthma Family history of allergic disorder Family history of migraine headaches Heart disease Social History Social History Smoking status: Never smoker Second hand tobacco smoke exposure: No Alcohol intake: current Alcohol use details: once or twice a year Substance use: never Substance use type: does not use Current Housing: Decline to Answer Concerned About Future H
[2024-04-28 20:41] LABS: Alanine Aminotransferase 16 U/L (6-35); Albumin Level 4.5 g/dL (3.5-5.1); Alkaline Phosphatase 95 U/L (38-126); Anion Gap 11 mmol/L (4-12); Aspartate Amino Transferase 26 U/L (14-36); Bilirubin,Total 0.5 mg/dL (0.2-1.3); Blood Urea Nitrogen 18 mg/dL (7-17); Calcium 9.4 mg/dL (8.4-10.2); Carbon Dioxide 26 mmol/L (22-30); Chloride 101 mmol/L (98-107); Estimated CRCL calculation 55 ml/min; Estimated Glomerular Filt Rate 55; Glucose 114 mg/dL (65-110); Lipase 108 U/L (23-300); Sodium 138 mmol/L (137-145)
[2024-04-28 21:33] VITALS: BP 112/66; PULSE 65; RESP 15; O2SAT 98
[2024-04-28 22:45] VITALS: BP 112/66; PULSE 76; RESP 15; TEMP 36.8; O2SAT 100
== END 2024-04-28 22:46 | disposition home or self-care (01) ==
PROVIDERS: Emergency Provider Student in an Organized Health Care Education/Training Program; PCP Family Medicine
DX: R10.9 Unspecified abdominal pain (principal); R14.0 Abdominal distension (gaseous); R11.0 Nausea; E03.9 Hypothyroidism, unspecified; M19.041 Primary osteoarthritis, right hand; F41.9 Anxiety disorder, unspecified; F32.A Depression, unspecified; Z98.84 Bariatric surgery status; Z96.659 Presence of unspecified artificial knee joint; Z90.710 Acquired absence of both cervix and uterus; Z79.899 Other long term (current) drug therapy; K44.9 Diaphragmatic hernia without obstruction or gangrene
CPT/HCPCS: 36415; 74177; 80053; 81001; 83605; 83690; 85025; 87086; 96361; 96374; 96375; 99284; J2405; J7120; Q9967

== ENCOUNTER 2024-05-17 14:32 | Outpatient (CLI) | payer MEDICARE, OTHER, SELFPAY ==
[2024-05-17 15:21] LABS: Albumin Level 4.5 g/dL (3.5-5.1); Anion Gap 10 mmol/L (4-12); Blood Urea Nitrogen 18 mg/dL (7-17); Calcium 9.1 mg/dL (8.4-10.2); Carbon Dioxide 29 mmol/L (22-30); Chloride 100 mmol/L (98-107); Estimated Glomerular Filt Rate 55; Glucose 88 mg/dL (65-110); Sodium 139 mmol/L (137-145)
[2024-05-17 15:29] LABS: Complement C3 116 mg/dL (88-165)
[2024-05-17 15:41] LABS: Creatinine Urine 105.1 mg/dL
[2024-05-17 15:49] LABS: Total Protein Urine Random < 5 mg/dL; Ur Ttl Prot Creatinine Ratio < 0.05 mg/mg (0-0.20)
[2024-05-19 07:40] LABS: Anti Nuclear Antibody Pattern Nuclear, Homogeneous; Anti Nuclear Antibody Titer 1:40 titer
[2024-05-19 10:40] LABS: Protein, Total 6.6 g/dL (6.1-8.1)
[2024-05-20 10:55] LABS: Creatinine, Random Urine 106 mg/dL (20-275); Total Prot/Creat ratio mg/mg NOTE (0.024-0.184); Total Protein/Creatinine Ratio NOTE mg/g creat (24-184)
[2024-05-20 15:18] LABS: Anti Glomerular Basement Memb <1.0 AI
[2024-05-21 10:14] LABS: ANCA Screen NEGATIVE (NEGATIVE)
[2024-05-24 13:27] LABS: Albumin 3.9 g/dL (3.8-4.8); Alpha 1 Globulin 0.3 g/dL (0.2-0.3); Alpha 2 Globulin 0.8 g/dL (0.5-0.9); Beta 1 Globulin 0.6 g/dL (0.4-0.6); Gamma Globulin 0.8 g/dL (0.8-1.7)
== END 2024-05-17 14:33 | disposition home or self-care (01) ==
LOC: ANHLAB 14:44
PROVIDERS: PCP Family Medicine; Visit Provider Internal Medicine Nephrology
DX: N18.31 Chronic kidney disease, stage 3a (principal)
CPT/HCPCS: 36415; 80069; 82570; 83520; 84155; 84156; 84165; 84166; 86036; 86038; 86039; 86160; 86225

== ENCOUNTER 2024-05-24 13:01 | Outpatient (CLI) | payer MEDICARE, OTHER, SELFPAY ==
--- NOTE | ~2024-05-24 | US_ITS ---
Renal-Bladder ultrasound Clinical History: Chronic kidney disease Technique: Real-time sonographic imaging of the kidneys and urinary bladder was performed. Findings: The right kidney measures 7.8 cm in length and the left kidney measures 11.3 cm. There is n o hydronephrosis or renal calculus identified. Renal cortical echogenicity is within normal limits. N o renal mass lesion is identified. The urinary bladder is moderately distended at the time of this exam. No intraluminal echoes are iden tified. No abnormal wall thickening is seen. Impression: Relatively small right kidney. No other significant findings. Reviewed, dictated and finalized at location . Impression: Relatively small right kidney. No other significant findings.
== END 2024-05-24 13:02 | disposition home or self-care (01) ==
LOC: MICIMG 13:02
PROVIDERS: PCP Family Medicine; Visit Provider Internal Medicine Nephrology
DX: N18.31 Chronic kidney disease, stage 3a (principal)
CPT/HCPCS: 76775

== ENCOUNTER 2024-11-17 13:41 | Outpatient (CLI) | payer MEDICARE, OTHER, SELFPAY ==
[2024-11-17 15:02] LABS: Albumin Level 3.7 g/dL (3.5-5.1); Anion Gap 10 mmol/L (4-12); Blood Urea Nitrogen 13 mg/dL (7-17); Calcium 9.2 mg/dL (8.4-10.2); Carbon Dioxide 27 mmol/L (22-30); Chloride 104 mmol/L (98-107); Estimated Glomerular Filt Rate 57; Glucose 83 mg/dL (65-110); Phosphorus 3.3 mg/dL (2.5-4.5); Potassium 4.5 mmol/L (3.4-5.0); Sodium 141 mmol/L (137-145)
[2024-11-17 15:08] LABS: Creatinine Urine 123.8 mg/dL; Total Protein Urine Random 6 mg/dL; Ur Ttl Prot Creatinine Ratio 0.05 mg/mg (0-0.20)
[2024-11-17 15:20] LABS: Parathyroid Intact 76.1 pg/mL (14.5-75.2)
[2024-11-17 15:29] LABS: Vitamin D 25 Hydroxy 56.6 ng/mL
== END 2024-11-17 13:42 | disposition home or self-care (01) ==
LOC: ANHLAB 13:42
PROVIDERS: PCP Family Medicine; Visit Provider Internal Medicine Nephrology
DX: N18.31 Chronic kidney disease, stage 3a (principal)
CPT/HCPCS: 36415; 80069; 82306; 82570; 83970; 84156

== ENCOUNTER 2024-12-30 10:41 | Outpatient (CLI) | payer MEDICARE, OTHER, SELFPAY ==
--- OUTSIDE RECORDS SUMMARY | 2024-12-30 11:17 | XMS_ITS | Clinical Summary ---
Author Organization [facility] [employer] Address [address] [place] [address] Care Team Providers Care Grain Weigher Name Role Phone Elio Tobar MD Primary Care Provider [phone] Source Comments [facility] [employer],[facility] and Associated Physician Practices is amultiple site organization consisting of ambulatory clinics and hospital sitesin [place], [place], [place] and [place]. This disclosure is being madepursuant to the Care Everywhere program and may not contain all information available regarding this patient. Last updated 18.[facility] [employer] Allergies Active Allergy Reactions Criticality Noted Date Comments Codeine 08/06/2016 Medications * Be aware that medications may not be up to date on this document. Alwaysverify current medications with the patient. Medication Sig Dispensed Refills Start Date End Date Status ALBUTEROL IN Active LITHIUM PO Active levothyroxine (SYNTHROID) 25 MCG tablet Take 25 mcg by mouth daily before breakfast Active DULoxetine (CYMBALTA) 60 MG capsule Take 60 mg by mouth once daily Active traZODone (DESYREL) 50 MG tablet Take 50 mg by mouth at bedtime Active brexpiprazole (REXULTI) 2 MG tablet Take 2 mg by mouth once daily Active Esomeprazole Magnesium (NEXIUM PO) Active Furosemide (LASIX PO) Active albuterol HFA (VENTOLIN HFA) 108 (90 BASE) MCG/ACT inhaler Inhale 2 Puffs by mouth every 6 hours as needed 1 Inhaler 5 08/06/2016 Active predniSONE (DELTASONE) 10 MG tablet 5 tabs po x2 days, 4 tabs po x2 days, 3 tabs po x2 days, 2 tabs po x2 days, 1 tab po x2 days 30 Tab 08/06/2016 Active Social History Tobacco Use Types Packs/Day Years Used Date Smoking Tobacco: Former Sex and Gender Information Value Date Recorded Sex Assigned at Not on file Gender Identity Not on file Sexual Orientation Not on file Last Filed Vital Signs Vital Sign Reading Time Taken Comments Blood Pressure 124/78 08/06/2016 10:33 AM SOLDERING MACHINE FEEDER Pulse 65 08/06/2016 10:33 AM SOLDERING MACHINE FEEDER Temperature 36.8 C (98.2 F) 08/06/2016 10:33 AM SOLDERING MACHINE FEEDER Respiratory Rate 16 08/06/2016 10:33 AM SOLDERING MACHINE FEEDER Oxygen Saturation 96% 08/06/2016 10:48 AM SOLDERING MACHINE FEEDER Inhaled Oxygen Concentration - - Weight 129.3 kg (285 lb) 08/06/2016 10:33 AM SOLDERING MACHINE FEEDER Height 165.1 cm (5' 5 ) 08/06/2016 10:33 AM SOLDERING MACHINE FEEDER Body Mass Index 47.43 08/06/2016 10:33 AM SOLDERING MACHINE FEEDER Plan of Treatment Health Maintenance Due Date Last Done Comments BONE DENSITY TESTING 1957 COLOGUARD (AGES 45-75) - COL ON CA SCREENING 1957 COLON MONITORING 1957 COLONOSCOPY - COLON CA SCREENING 1957 CT COLONOGRAPHY - COLON CA SCREENING 1957 Colorectal Cancer Screening 1957 FIT - COLON CA SCREENING 1957 FLEX SIG - COLON CA SCREENING 1957 LIPID TESTING 1957 MAMMOGRAM 1957 MEDICARE AWV 12 MONTHS 1957 HEPATITIS C SCREENING 05/31/1975 DTAP/TDAP/TD VACCINES (1 - Tdap) 1976 PNEUMOCOCCAL VACCINE 50+ (1 of 1 - PCV) 2007 ZOSTER VACCINE (1 of 2) 2007 COVID-19 VACCINE (1 - 2023-2 5 season) 2024 DEPRESSION SCREENING 09/21/2024 INFLUENZA VACCINE (Season Ended) 2025 Respiratory Syncytial Virus (RSV) Vaccine Pt: or over 60 yrs (1 - 1-dose 75+ series) 2032 HEPATITIS B VACCINE Aged Out No longe r eligible based on patient's age to complete this topic HIB VACCINE Aged Out No longer eligi ble based on patient's age to complete this topic HPV VACCINE Aged Out No longer eligi ble based on patient's age to complete this topic MENINGOCOCCAL (Group B) VACC INE SHARED DECISION-MAKING Aged Out No longer eligibl e based on patient's age to complete this topic MENINGOCOCCAL GROUPS A/C/Y/W VACCINE Aged Out No longer eligible b ased on patient's age to complete this topic Insurance Payer Benefit Plan / Group Subscriber ID Effective Dates Phone Address Type MEDICARE [place] MEDICARE PART B [id number] 2015-Prese nt [address] [address] [place] [address] Medicare [id number] Effective for all dates [id number] [address] [place] [address] /[place] MEDICARE MEDICARE PART A AND B [id number] Effective for all dates [address] [place] [address] Medicare MED[place]ARE [place] [id number] 2015-Prese nt [address] [place] [address] Medicare Care Teams Grain Weigher Relationship Specialty Start Date End Date Elio Tobar MD [address] [place] [address] PCP - General 10/23/21
--- OUTSIDE RECORDS SUMMARY | 2024-12-30 11:18 | XMS_ITS | Patient Health Record ---
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 Role Phone Fatoumata DIEHL, Apollo Primary Care Provider UnavailJordyn Golden Unavailable [phone] Unavailable [phone] Migration, Provider Unavailable Unavailable Allergies Allergen (clinical drug ingredient) Drug/Non Drug Allergy documented on EMR Reaction Allergy Type Onset Date Status Talwin Unknown Drug Allergy 11/24/2023 Active tramadol Ultram Unknown Drug Allergy 11/24/2023 Active tapentadol Nucynta Unknown Drug Allergy 11/24/2023 Activ e codeine Codeine Unknown Drug Allergy 11/24/2023 Active Reason For Referral No Information Medications Medication SIG (Take, Route, Frequency, Duration) Notes Start Date End Date Status Caplyta 42 MG 1 capsule Orally Once a day for 30 day(s) CaseId:[id number];Sta tus:Approved;Review Type:Prior Auth;Coverage Start Date:11/21/2024;Cov erage End Date:09/20/2099; 12/21/2024 Active Tylenol 325 mg ORAL 11/24/2023 Acti ve Omeprazole 40 MG 1 capsule 1/2 to 1 hour before morning meal Orally Once a day Active QUEtiapine Fumarate 50 MG 3 tablets once a day for 7 days, 2 tablets once a day for 7 days, 1 tablet once a day for 7 days Oral for 21 days taper down then stop 11/28/2024 Active buPROPion HCl 100 MG 1 tablet Oral three times a day for 30 days Active QUEtiapine Fumarate 50 MG 0.5 to one whole tablet at bedtime oral daily for 30 days As needed Active Levothyroxine Sodium 50 MCG Oral 11/24/2023 Active Synthroid 50 MCG Oral 11/24/2023 Ac tive MULTIVITAMIN 50 PLUS *Reorder fr om Medispan for eRx and Interaction Alerts* 11/24/2023 Active Escitalopram Oxalate 20 MG 1 tablet Orally Once a day for 30 days DC 10 mg 11/23/2024 Active Immunizations Vaccine Route Administration Date Status Comme nts Moderna Covid-19 Vaccine 1st dose Unknown 09/05/2021 Ad ministered Pfizer Biontech Covid-19 Vac cine 2nd dose Unknown 12/21/2020 Administered Pfizer Biontech Covid-19 Vac cine 2nd dose Unknown 01/14/2021 Administered Tdap Unknown 02/01/2014 Administered Social History Tobacco Use: Social History Observation Description Date Details (start date - stop date) Never Smoker NA - NA Sex Assigned At : Social History Observation Description Sex Assigned At Female Household Question Answer Notes Marital status: Number of adults in household: 2 Tobacco Control (Standard) Question Answer Notes Tobacco use: Nonsmoker AUDIT-C (Standard) Question Answer Notes Did you have a drink containing alcohol in the p ast year? No Section Notes: Social History Substance Use Do you or have you ever smoked tobacco?: Never smoker How much tobacco do you smoke?: None Do you or have you ever used e-cigarettes or vape?: Never used electronic cigarettes Do you or have you ever used smokeless tobacco?: Never used smokeless tobacco How much tobacco do you chew?: none What was the date of your most recent tobacco screening?: Has tobacco cessation counseling been provided?: No What is your level of alcohol consumption?: Occasional How many years have you consumed alcohol?: 45 Do you use any illicit or recreational drugs?: No Which illicit or recreational drugs have you used?: None Have you used IV drugs?: No What is your level of caffeine consumption?: Occasional Education and Occupation What is the highest grade or level of school you have completed or the highest degree you have received?: Associate degree: occupational, technical, or vocational program Are you currently employed?: No Who is your employer?: None Marriage and Sexuality What is your relationship status?: Are you sexually active?: No Do you use protection during sex?: No How many children do you have?: 2 Home and Environment Are there any guns present in your home?: Yes Advance Directive Do you have an advance directive?: No Do you have a medical power of circuit recorder?: No OtherEducation: 4 Year College High number of sexual partners: No History of inconsistent/no condom use: No Marital status: Past steroid/HgH use?: No Gender Identity and LGBTQ Identity Gender identity: Identifies as Female Assigned sex at : Female Pronouns: she/her Sexual orientation: Straight or heterosexual Social History Substance Use Do you or have you ever smoked tobacco?: Never smoker How much tobacco do you smoke?: None Do you or have you ever used e-cigarettes or vape?: Never used electronic cigarettes Do you or have you ever used smokeless tobacco?: Never used smokeless tobacco How much tobacco do you chew?: none What was the date of your most recent tobacco screening?: Has tobacco cessation counseling been provided?: No What is your level of alcohol consumption?: Occasional How many years have you consumed alcohol?: 45 Do you use any illicit or recreational drugs?: No Which illicit or recreational drugs have you used?: None Have you used IV drugs?: No What is your level of caffeine consumption?: Occasional Education and Occupation What is the highest grade or level of school you have completed or the highest degree you have received?: Associate degree: occupational, technical, or vocational program Are you currently employed?: No Who is your employer?: None Marriage and Sexuality What is your relationship status?: Are you sexually active?: No Do you use protection during sex?: No How many children do you have?: 2 Home and Environment Are there any guns present in your home?: Yes Advance Directive Do you have an advance directive?: No Do you have a medical power of circuit recorder?: No OtherEducation: 4 Year College High number of sexual partners: No History of inconsistent/no condom use: No Marital status: Past steroid/HgH use?: No Gender Identity and LGBTQ Identity Gender identity: Identifies as Female Assigned sex at : Female Pronouns: she/her Sexual orientation: Straight or heterosexual Social History Substance Use Do you or have you ever smoked tobacco?: Never smoker How much tobacco do you smoke?: None Do you or have you ever used e-cigarettes or vape?: Never used electronic cigarettes Do you or have you ever used smokeless tobacco?: Never used smokeless tobacco How much tobacco do you chew?: none What was the date of your most recent tobacco screening?: Has tobacco cessation counseling been provided?: No What is your level of alcohol consumption?: Occasional How many years have you consumed alcohol?: 45 Do you use any illicit or recreational drugs?: No Which illicit or recreational drugs have you used?: None Have you used IV drugs?: No What is your level of caffeine consumption?: Occasional Education and Occupation What is the highest grade or level of school you have completed or the highest degree you have received?: Associate degree: occupational, technical, or vocational program Are you currently employed?: No Who is your employer?: None Marriage and Sexuality What is your relationship status?: Are you sexually active?: No Do you use protection during sex?: No How many children do you have?: 2 Home and Environment Are there any guns present in your home?: Yes Advance Directive Do you have an advance directive?: No Do you have a medical power of circuit recorder?: No OtherEducation: 4 Year College High number of sexual partners: No History of inconsistent/no condom use: No Marital status: Past steroid/HgH use?: No Gender Identity and LGBTQ Identity Gender identity: Identifies as Female Assigned sex at : Female Pronouns: she/her Sexual orientation: Straight or heterosexual Problems Problem Type SNOMED Code ICD Code Onset Dates Problem Status W/U Status Risk Notes Problem Bipolar disorder (10274586) Bipolar disorder, unspecified (F31.9) 4 Active confirmed Problem Generalized anxiety disorder (67467082) Generalized anxiety disorder (F41.1) 4 Active confirmed Problem Primary insomnia (6074172) Primary insomnia (F51.01) 4 Active confirmed Problem Insomnia disorder related to another mental disorder (02477975) Insomnia due to other mental disorder (F51.05) Active confirmed Problem Bipolar I disorder (638959095) Bipolar I disorder (F31.9) Active confirmed Vital Signs Heart Rate 62 /min 12/21/2024 Height-cm 165.10 cm 12/21/2024 Blood pressure diastolic 67 mm Hg 12/21/2024 Weight-kg 95.26 kg 12/21/2024 Height 65.00 in 12/21/2024 Blood pressure systolic 106 mm Hg 12/21/2024 Weight 210 lbs 12/21/2024 BMI 34.94 kg/m2 12/21/2024 Encounters [facility]counter [facility] Date [facility] [address] [place] [address] 12/21/2024 Jordyn Luis Encounter for screening for depression Z13.31 ; Encounter for screening for cardiovascular disorders Z13.6 ; Insomnia due to other mental disorder F51.05 ; Primary insomnia F51.01 ; Bipolar I disorder F31.9 and Generalized anxiety disorder F41.1 [facility] [address] [place] [address] 02/23/2024 Alyssa Sabihazalfonsok Bipolar disorder, unspecified F31.9 ; Generalized anxiety disorder F41.1 and Primary insomnia F51.01 [facility] [address] [place] [address] 03/29/2024 Alyssa Domingo Bipolar I disorder F31.9 ; Generalized anxiety disorder F41.1 and Primary insomnia F51.01 [facility] [address] [place] [address] 07/04/2024 Alyssa Domingo Bipolar I disorder F31.9 ; Generalized anxiety disorder F41.1 and Primary insomnia F51.01 [facility] [address] [place] [address] 08/24/2024 Jordyn Luis Bipolar I disorder F31.9 ; Generalized anxiety disorder F41.1 and Primary insomnia F51.01 [facility] [address] [place] [address] 10/04/2024 Jordyn Luis [facility] [address] [place] [address] 10/24/2024 Jordyn Luis [facility], [facility] [address] [place] [address] 10/26/2024 Jordyn Luis Bipolar I disorder F31.9 ; Generalized anxiety disorder F41.1 and Primary insomnia F51.01 [facility] [address] [place] [address] 11/23/2024 Jordyn Hagopian Bipolar I disorder F31.9 ; Generalized anxiety disorder F41.1 and Primary insomnia F51.01 [facility], [facility] [address] [place] [address] 02/06/2024 Provider Migration [facility], [facility] [address] [place] [address] 02/07/2024 Provider Migration [facility], [facility] [address] [place] [address] 03/28/2024 Alyssa Woloszynek Generalized anxiety disorder F41.1 and Bipolar disorder, unspecified F31.9 [facility], [facility] [address] [place] [address] 03/28/2024 Alyssa Domingo Bipolar disorder, unspecified F31.9 [facility], [facility] [address] [place] [address] 03/28/[address] Bipolar disorder, unspecified F31.9 [facility], [facility] [address] [place] [address] 05/11/2024 Alyssa Santiagooszynek [facility], [facility] [address] [place] [address] 07/20/2024 Alyssa Emmanuelk Bipolar I disorder F31.9 [facility], [facility] [address] [place] [address] 07/14/2024 Alyssa Domingo Bipolar I disorder F31.9 [facility], [facility] [address] [place] [address] 07/19/2024 Alyssa Landiszalfonsok [facility], [facility] [address] [place] [address] 07/22/2024 Alyssa Landiszalfonsok [facility], [facility] [address] [place] [address] 10/12/2024 Jordynzachary Amadoopian Bipolar I disorder F31.9 [facility], [facility] [address] [place] [address] 10/20/2024 Jordyn Amadoopian Bipolar I disorder F31.9 [facility], [facility] [address] [place] [address] 11/23/2024 Jordyn Luis Bipolar I disorder F31.9 [facility], [facility] [address] [place] [address] 11/24/2024 Jordyn Luis [facility], [facility] [address] [place] [address] 11/25/2024 Jordyn Luis [facility], [facility] [address] [place] [address] 11/25/2024 Jordyn Amadomadan [facility], [facility] [address] [place] [address] 11/26/2024 Jordyn Janelle [facility], [facility] [address] [place] [address] 11/28/2024 Jordyn Luis [facility], [facility] [address] [place] [address] 11/30/2024 Jordyn Luis [facility], [facility] [address] [facility] [address] [place] [address] 12/12/2024 Jordyn Luis Assessments Encounter Date Diagnosis (ICD Code) Assessment Notes Treatment Notes Treatment Clinical Notes Section Notes 03/29/2024 Bipolar I disorder (ICD-10 - F31.9) depression/down is better, but feeling tired, lack of interest/motiva tion at times. Recent labs said blood sugar was low, and earlier in year panel reports thyroid, cholesterol, etc everything was good. Discuss options, shared decision to increase lexapro back to 7.5mg. May restart melatonin as well. Education on medications and treatment course. consider restarting support groups or therapy f/u in 6wks, earlier if concerns Meds: increase lexapro to 7.5mg daily cont bupropion 100mg TID cont quetiapine 100mg qhs (DO NOT take extra in daytime) Notes: Hx gastric bypass Hx misuse anxiety medications in past. Also hx taking extra seroquel daytime to sleep when sx 10/26/2024 Bipolar I disorder (ICD-10 - F31.9) Bipolar disorder - Increased depressive episodes, decreased energy and motivation over past two months - Reports a few days better, good mood, couldn't sleep and didn't feel tired, almost hyper - Mood fluctuating, consistent with bipolar history Plan: - Increase quetiapine dose from 100 mg to 200 mg at bedtime - Monitor for extrapyramidal symptoms or repetitive movements (hand tapping in the past) - Explore alternative treatment options next visit if no improvement - Continue wellbutrin 100 mg three times a day, has been doing well on this, no changes today as to not risk further mood changes Anxiety - Currently on escitalopram 10 mg for anxiety - Anxiety not concerning currently Plan: - Continue escitalopram 10 mg daily, has been doing well on this, no changes today as to not risk further mood changes - Reassess need for dose adjustment at follow-up Insomnia - Difficulty staying asleep, waking up 2-3 times a night - Quetiapine helps with sleep but not fully effective Plan: - Increased quetiapine dose may help improve sleep - Monitor sleep quality at follow-up Medication refills - Recently refilled quetiapine 100 mg, enough to double up for one month - Bupropion and escitalopram prescriptions available for pickup Plan: - Ensure patient picks up escitalopram prescription - Continue taking bupropion as prescribed - Reassess medication needs at follow-up Follow-up in one month to assess effectiveness of increased quetiapine dose and overall treatment plan 08/24/2024 Bipolar I disorder (ICD-10 - F31.9) Assessment and Plan: 1. bipolar disorder - Patient reports improved mood since medication change, with no despression overall and no maulik. Plan: - Continue sertraline 10 mg daily - Continue wellbutrin 100 mg TID 2. anxiety - reports no anxiety Plan: - cont meds as above 2. Insomnia - Difficulty sleeping due to a broken rib. Seroquel helps but still experiences waking up in the night. Plan: - Continue Seroquel 100 mg QHS - Encourage good sleep hygiene practices. Mood tends to plummet after the holidays. encouraged to utilize light therapy device as needed Does not need refills at this time, she says she will reach out when needed follow up in 6 weeks to assess mood, sooner if concerns arise 10/12/2024 Bipolar I disorder (ICD-10 - F31.9) 10/20/2024 Bipolar I disorder (ICD-10 - F31.9) 10/26/2024 Generalized anxiety disorder (ICD-10 - F41.1) Bipolar disorder - Increased depressive episodes, decreased energy and motivation over past two months - Reports a few days better, good mood, couldn't sleep and didn't feel tired, almost hyper - Mood fluctuating, consistent with bipolar history Plan: - Increase quetiapine dose from 100 mg to 200 mg at bedtime - Monitor for extrapyramidal symptoms or repetitive movements (hand tapping in the past) - Explore alternative treatment options next visit if no improvement - Continue wellbutrin 100 mg three times a day, has been doing well on this, no changes today as to not risk further mood changes Anxiety - Currently on escitalopram 10 mg for anxiety - Anxiety not concerning currently Plan: - Continue escitalopram 10 mg daily, has been doing well on this, no changes today as to not risk further mood changes - Reassess need for dose adjustment at follow-up Insomnia - Difficulty staying asleep, waking up 2-3 times a night - Quetiapine helps with sleep but not fully effective Plan: - Increased quetiapine dose may help improve sleep - Monitor sleep quality at follow-up Medication refills - Recently refilled quetiapine 100 mg, enough to double up for one month - Bupropion and escitalopram prescriptions available for pickup Plan: - Ensure patient picks up escitalopram prescription - Continue taking bupropion as prescribed - Reassess medication needs at follow-up Follow-up in one month to assess effectiveness of increased quetiapine dose and overall treatment plan 03/28/2024 Bipolar disorder, unspecified (ICD-10 - F31.9) 03/28/2024 Bipolar disorder, unspecified (ICD-10 - F31.9) 03/29/2024 Generalized anxiety disorder (ICD-10 - F41.1) manageable meds as above 07/04/2024 Bipolar I disorder (ICD-10 - F31.9) depressed increase lexapro to 10mg daily cont bupropion 100mg TID cont quetiapine 100mg qhs (DO NOT take extra in daytime) more depressed since family moved out. discuss option to increase lexapro, or change to other, she would rather stick with lexapro, review r/b/se, monitor mood stability. recommend therapy, not receptive; discuss being more acitive, socially, volunteer, go for a walk, etc. f/u in 1 months, earlier if concerns -discussed transition to new provider as I am leaving the practice after this month Notes: Hx gastric bypass Hx misuse anxiety medications in past. Also hx taking extra seroquel daytime to sleep when sx 07/14/2024 Bipolar I disorder (ICD-10 - F31.9) 07/20/2024 Bipolar I disorder (ICD-10 - F31.9) 11/23/2024 Bipolar I disorder (ICD-10 - F31.9) Medardo Nelson, a patient with a history of bipolar disorder diagnosed in 1996, presents with depressive symptoms including lack of initiative, social withdrawal, and avoidance of appointments. Bipolar Disorder Assessment: Patient has a long-standing diagnosis of bipolar disorder since 1996, with a history of manic episodes characterized by nocturnal hyperactivity, irritability, and impulsive behavior. In recent years, depressive symptoms have been more prominent. Current presentation includes social withdrawal, lack of initiative, and avoidance of appointments. Previous medication trials include lamotrigine, lithium, carbamazepine, sertraline, and paroxetine. Current regimen consists of escitalopram, bupropion, and quetiapine, with recent adjustments due to sleep issues and depressive symptoms. Plan: - Increase escitalopram from 10 mg to 20 mg PO daily - Decrease quetiapine from 200 mg to 100 mg PO daily over 2 weeks - Initiate Caplyta (lumateperone) 10.5 mg PO nightly for week 1, then increase to 21 mg PO nightly in week 2 - Discontinue quetiapine after 3 weeks of Caplyta initiation - Continue bupropion 100 mg PO twice daily - Provided patient education on medication changes, potential side effects, and sleep impact - Follow up to assess response to medication changes and sleep quality Sleep Disturbance Assessment: Patient reports difficulty staying asleep despite the sedating effects of quetiapine. Sleep disturbance is likely related to the underlying bipolar disorder and current depressive episode. Plan: - Transition from quetiapine to Caplyta as outlined in the bipolar disorder management plan - Monitor sleep quality during medication transition - Reassess sleep patterns at follow-up appointment Anxiety Assessment: Patient exhibits symptoms of anxiety, which may be contributing to social withdrawal and avoidance behaviors. The clinician notes that Caplyta is typically effective for anxiety symptoms. Plan: - Initiate Caplyta as outlined in the bipolar disorder management plan, which is expected to address anxiety symptoms - Encourage continuation of stress-reductio n techniques - Assess anxiety symptoms at follow-up appointment 11/23/2024 Bipolar I disorder (ICD-10 - F31.9) 12/21/2024 Encounter for screening for depression (ICD-10 - Z13.31) 02/23/2024 Bipolar disorder, unspecified (ICD-10 - F31.9) Did not tolerate stopping lexapro, depression sx, restarted about 2 wks ago at 5mg. No improvement yet. Discuss option to increase back to 7.5mg. She would rather keep at 5mg and allow more time. Education on medications and treatment course. consider restarting support groups or therapy f/u in 1 month, earlier if concerns Meds: cont lexapro 5mg daily cont bupropion 100mg TID cont quetiapine 100mg qhs (DO NOT take extra in daytime) Notes: Hx gastric bypass Hx misuse anxiety medications in past. Also hx taking extra seroquel daytime to sleep when sx 02/23/2024 Generalized anxiety disorder (ICD-10 - F41.1) as above 02/23/2024 Primary insomnia (ICD-10 - F51.01) treat mood practice good sleep hygeine 12/21/2024 Encounter for screening for cardiovascular disorders (ICD-10 - Z13.6) 03/28/2024 Generalized anxiety disorder (ICD-10 - F41.1) Electronic Prior Authorization was requested for Escitalopram Oxalate 5 MG Tablet. Provider can order medication once approval received. 08/24/2024 Generalized anxiety disorder (ICD-10 - F41.1) Assessment and Plan: 1. bipolar disorder - Patient reports improved mood since medication change, with no despression overall and no maulik. Plan: - Continue sertraline 10 mg daily - Continue wellbutrin 100 mg TID 2. anxiety - reports no anxiety Plan: - cont meds as above 2. Insomnia - Difficulty sleeping due to a broken rib. Seroquel helps but still experiences waking up in the night. Plan: - Continue Seroquel 100 mg QHS - Encourage good sleep hygiene practices. Mood tends to plummet after the holidays. encouraged to utilize light therapy device as needed Does not need refills at this time, she says she will reach out when needed follow up in 6 weeks to assess mood, sooner if concerns arise 03/29/2024 Primary insomnia (ICD-10 - F51.01) has avail OTC melatonin, recommend 3-5mg qhs prn, no more than 10mg practice good sleep hygeine 10/26/2024 Primary insomnia (ICD-10 - F51.01) Bipolar disorder - Increased depressive episodes, decreased energy and motivation over past two months - Reports a few days better, good mood, couldn't sleep and didn't feel tired, almost hyper - Mood fluctuating, consistent with bipolar history Plan: - Increase quetiapine dose from 100 mg to 200 mg at bedtime - Monitor for extrapyramidal symptoms or repetitive movements (hand tapping in the past) - Explore alternative treatment options next visit if no improvement - Continue wellbutrin 100 mg three times a day, has been doing well on this, no changes today as to not risk further mood changes Anxiety - Currently on escitalopram 10 mg for anxiety - Anxiety not concerning currently Plan: - Continue escitalopram 10 mg daily, has been doing well on this, no changes today as to not risk further mood changes - Reassess need for dose adjustment at follow-up Insomnia - Difficulty staying asleep, waking up 2-3 times a night - Quetiapine helps with sleep but not fully effective Plan: - Increased quetiapine dose may help improve sleep - Monitor sleep quality at follow-up Medication refills - Recently refilled quetiapine 100 mg, enough to double up for one month - Bupropion and escitalopram prescriptions available for pickup Plan: - Ensure patient picks up escitalopram prescription - Continue taking bupropion as prescribed - Reassess medication needs at follow-up Follow-up in one month to assess effectiveness of increased quetiapine dose and overall treatment plan 11/23/2024 Generalized anxiety disorder (ICD-10 - F41.1) Medardo Nelson, a patient with a history of bipolar disorder diagnosed in 1996, presents with depressive symptoms including lack of initiative, social withdrawal, and avoidance of appointments. Bipolar Disorder Assessment: Patient has a long-standing diagnosis of bipolar disorder since 1996, with a history of manic episodes characterized by nocturnal hyperactivity, irritability, and impulsive behavior. In recent years, depressive symptoms have been more prominent. Current presentation includes social withdrawal, lack of initiative, and avoidance of appointments. Previous medication trials include lamotrigine, lithium, carbamazepine, sertraline, and paroxetine. Current regimen consists of escitalopram, bupropion, and quetiapine, with recent adjustments due to sleep issues and depressive symptoms. Plan: - Increase escitalopram from 10 mg to 20 mg PO daily - Decrease quetiapine from 200 mg to 100 mg PO daily over 2 weeks - Initiate Caplyta (lumateperone) 10.5 mg PO nightly for week 1, then increase to 21 mg PO nightly in week 2 - Discontinue quetiapine after 3 weeks of Caplyta initiation - Continue bupropion 100 mg PO twice daily - Provided patient education on medication changes, potential side effects, and sleep impact - Follow up to assess response to medication changes and sleep quality Sleep Disturbance Assessment: Patient reports difficulty staying asleep despite the sedating effects of quetiapine. Sleep disturbance is likely related to the underlying bipolar disorder and current depressive episode. Plan: - Transition from quetiapine to Caplyta as outlined in the bipolar disorder management plan - Monitor sleep quality during medication transition - Reassess sleep patterns at follow-up appointment Anxiety Assessment: Patient exhibits symptoms of anxiety, which may be contributing to social withdrawal and avoidance behaviors. The clinician notes that Caplyta is typically effective for anxiety symptoms. Plan: - Initiate Caplyta as outlined in the bipolar disorder management plan, which is expected to address anxiety symptoms - Encourage continuation of stress-reductio n techniques - Assess anxiety symptoms at follow-up appointment 07/04/2024 Generalized anxiety disorder (ICD-10 - F41.1) manageable meds as above 07/04/2024 Primary insomnia (ICD-10 - F51.01) has avail OTC melatonin, recommend 3-5mg qhs prn, no more than 10mg practice good sleep hygeine 11/23/2024 Primary insomnia (ICD-10 - F51.01) Medardo Nelson, a patient with a history of bipolar disorder diagnosed in 1996, presents with depressive symptoms including lack of initiative, social withdrawal, and avoidance of appointments. Bipolar Disorder Assessment: Patient has a long-standing diagnosis of bipolar disorder since 1996, with a history of manic episodes characterized by nocturnal hyperactivity, irritability, and impulsive behavior. In recent years, depressive symptoms have been more prominent. Current presentation includes social withdrawal, lack of initiative, and avoidance of appointments. Previous medication trials include lamotrigine, lithium, carbamazepine, sertraline, and paroxetine. Current regimen consists of escitalopram, bupropion, and quetiapine, with recent adjustments due to sleep issues and depressive symptoms. Plan: - Increase escitalopram from 10 mg to 20 mg PO daily - Decrease quetiapine from 200 mg to 100 mg PO daily over 2 weeks - Initiate Caplyta (lumateperone) 10.5 mg PO nightly for week 1, then increase to 21 mg PO nightly in week 2 - Discontinue quetiapine after 3 weeks of Caplyta initiation - Continue bupropion 100 mg PO twice daily - Provided patient education on medication changes, potential side effects, and sleep impact - Follow up to assess response to medication changes and sleep quality Sleep Disturbance Assessment: Patient reports difficulty staying asleep despite the sedating effects of quetiapine. Sleep disturbance is likely related to the underlying bipolar disorder and current depressive episode. Plan: - Transition from quetiapine to Caplyta as outlined in the bipolar disorder management plan - Monitor sleep quality during medication transition - Reassess sleep patterns at follow-up appointment Anxiety Assessment: Patient exhibits symptoms of anxiety, which may be contributing to social withdrawal and avoidance behaviors. The clinician notes that Caplyta is typically effective for anxiety symptoms. Plan: - Initiate Caplyta as outlined in the bipolar disorder management plan, which is expected to address anxiety symptoms - Encourage continuation of stress-reductio n techniques - Assess anxiety symptoms at follow-up appointment 08/24/2024 Primary insomnia (ICD-10 - F51.01) Assessment and Plan: 1. bipolar disorder - Patient reports improved mood since medication change, with no despression overall and no maulik. Plan: - Continue sertraline 10 mg daily - Continue wellbutrin 100 mg TID 2. anxiety - reports no anxiety Plan: - cont meds as above 2. Insomnia - Difficulty sleeping due to a broken rib. Seroquel helps but still experiences waking up in the night. Plan: - Continue Seroquel 100 mg QHS - Encourage good sleep hygiene practices. Mood tends to plummet after the holidays. encouraged to utilize light therapy device as needed Does not need refills at this time, she says she will reach out when needed follow up in 6 weeks to assess mood, sooner if concerns arise 12/21/2024 Insomnia due to other mental disorder (ICD-10 - F51.05) 03/28/2024 Bipolar disorder, unspecified (ICD-10 - F31.9) 12/21/2024 Primary insomnia (ICD-10 - F51.01) 12/21/2024 Bipolar I disorder (ICD-10 - F31.9) Electronic Prior Authorization was requested for Caplyta 42 MG Capsule. Provider can order medication once approval received. 12/21/2024 Generalized anxiety disorder (ICD-10 - F41.1) 12/21/2024 Ira Nelson is a patient with a history of psychiatric medication use, including antipsychotics and antidepressants, presenting with concerns about medication management and sleep issues. Bipolar Disorder Assessment: Patient is currently stable on Caplyta 42mg daily and Lexapro 20mg daily for mood management. Reports improved mood, temperament, and energy levels. No current suicidal ideation. Patient accidentally took haloperidol instead of acid indigestion medication this morning, resulting in dizziness and fatigue. Continues to use quetiapine 50mg at bedtime for sleep, despite previous recommendation to discontinue. No signs of tardive dyskinesia noted, only occasional tapping that patient can control when aware. Plan: - Continue Caplyta 42mg PO daily - Continue Lexapro 20mg PO daily - Continue Wellbutrin IR 100mg PO TID (total 300mg daily) - Prescribe quetiapine 50mg PO qhs with option to take half (25mg) - Discontinue haloperidol - Monitor for development of movement disorders - Follow up to assess efficacy of current medication regimen and potential quetiapine taper Insomnia Assessment: Patient reports difficulty sleeping without quetiapine. Previous trials of OTC sleep aids and Nyquil were ineffective. Belsomra was helpful but caused morning grogginess. Patient has a history of substance abuse with Xanax, indicating a need for caution with controlled substances. Plan: - Continue quetiapine 50mg PO qhs with option to decrease to 25mg as tolerated - Discuss risks and benefits of sedative-hypnoti c medications, including potential for dependence and tolerance - Consider future trial of Lunesta or Dayvigo if quetiapine taper is successful and sleep issues persist - Educate patient on sleep hygiene techniques Medication Management Assessment: Patient is on multiple psychiatric medications, including Caplyta (lumateperone) 42mg, Lexapro (escitalopram) 20mg, Wellbutrin IR (bupropion) 100mg TID, and quetiapine 50mg. Patient reports allergies to trazodone. Recent gastric bypass surgery necessitated switch from extended-release to immediate-releas e bupropion. Plan: - Submit prior authorization for Caplyta to insurance - Provide patient education on proper medication administration and potential side effects - Advise patient to organize medications to prevent future medication errors - Coordinate care with skiver operator regarding use of ibuprofen despite kidney issues - Monitor cholesterol and blood glucose levels 07/04/2024 Other 08/24/2024 Other continue wellbutrin 100 mg TID, sertraline 10 mg daily, and seroquel 100 mg QHS no refills needed at this time Assessment and Plan: 1. bipolar disorder - Patient reports improved mood since medication change, with no despression overall and no maulik. Plan: - Continue sertraline 10 mg daily - Continue wellbutrin 100 mg TID 2. anxiety - reports no anxiety Plan: - cont meds as above 2. Insomnia - Difficulty sleeping due to a broken rib. Seroquel helps but still experiences waking up in the night. Plan: - Continue Seroquel 100 mg QHS - Encourage good sleep hygiene practices. Mood tends to plummet after the holidays. encouraged to utilize light therapy device as needed Does not need refills at this time, she says she will reach out when needed follow up in 6 weeks to assess mood, sooner if concerns arise Plan Of Treatment Next Appt Details Provider Name:Jordyn Pillai jaspreet, 01/16/2025 02:45:00 PM, [address] [facility] [address], [facility] [address], [place], [address], Insurance Providers Payer Name Payer Address Payer Phone Subscriber Number Group Number Insured Name Patient Relationship to Insured Coverage Start Date Coverage End Date [place] [address] [place] [phone] [id number] MEDARDO NELSON Self - patient is the insured For Life - Medicare Supplement [address] [place] [address] [id number] MEDARDO NELSON Self - patient is the insured Medical (General) History Medical History History ICD Code Problems: Acquired hypothyroidism Obesity Obstructive sleep apnea syndrome Primary insomnia Past Psychiatric History: An xiety Disorder,Major Depressive Episode,Bipolar Disorder undefined chronic fatigue syndrome Surgical History Surgery Date(Month/Year) Other Any surgical history Hysterectomy (11000) 09/21/2000 Tonsilectomy/adenoids 09/21/2010 Other 09/28/2017 Any surgical history 09/30/2018 Bariatric operative procedure ([id number] ) 10/01/2018 Any surgical history 2001
--- OUTSIDE RECORDS SUMMARY | 2024-12-30 11:18 | XMS_ITS | Referral Summary ---
Author Organization [facility] Address [facility] [place] [address] Care Team Providers Care Threshing Operator Name Role Phone Elio Tobar MD Primary Care Provider [phone] Felipe Conte MD Unavailable [phone] Benoit Pond DPT Unavailable Unavailable Allergies Active Allergy Reactions Criticality Noted Date Comments Codeine Itching Low Tapentadol Itching Low 10/01/2018 Tramadol Itching Low 05/05/2018 Medications levothyroxine (SYNTHROID) 50 mcg tablet Take 88 mcg by mouth director of counseling before breakfast 8 Active folic acid 20 mg capsule Take 20 mg by mouth daily with breakfast. Active cyclobenzaprine (FLEXERIL) 5 mg tablet Take 2 tablets (10 mg total) by mouth 3 (three) times a day as needed 8 Active clonazePAM (KlonoPIN) 0.5 mg tablet Take 1 tablet (0.5 mg total) by mouth nightly Active albuterol HFA (PROVENTIL HFA,VENTOLIN HFA,PROAIR HFA) 90 mcg/actuation inhaler Inhale 2 puffs every 6 (six) hours as needed for wheezing Active acetaminophen (TYLENOL) 500 mg tablet Take 2 tablets (1,000 mg total) by mouth every 6 (six) hours as needed for pain Active cyanocobalamin, vitamin B-12, 500 mcg tablet,disinteg ratingIndicatio ns:Prevention of Vitamin B12 Deficiency Place 500 mcg under the tongue daily. 30 each 5 9 Active calcium citrate malate-vit D3 250-100 mg-unit tabletIndicatio ns:Hypocalcemia Prevention,Prev ention of Vitamin D Deficiency Take 2 tablets by mouth 3 (three) times a day. 180 tablet 5 9 Active multivitamin tabletIndicatio ns:Vitamin Deficiency Prevention Take 1 tablet by mouth 2 (two) times a day. 60 tablet 5 9 Active buPROPion (WELLBUTRIN) 100 mg tablet Take 1 tablet (100 mg total) by mouth 3 (three) times a day Active docusate sodium (COLACE) 100 mg capsule docusate sodium 100 mg capsule TAKE ONE CAPSULE TWICE A DAY Active QUEtiapine (SEROquel) 100 mg tablet Take 1.5 tablets (150 mg total) by mouth nightly Active traZODone (DESYREL) 100 mg tablet [address] (CYMBALTA) 60 mg capsule duloxetine 60 mg capsule,delayed release TAKE 1 CAPSULE EVERY NIGHT AT BEDTIME Active escitalopram (LEXAPRO) 5 mg tablet 4 Active predniSONE (DELTASONE) 10 mg tablet 4 Active Active Problems Problem Noted Date Diagnosed Date Morbid obesity due to excess calories 09/09/2018 Overview (09/09/2018): Added automatically from request for surgery [id number] Anxiety 08/10/2018 Depression 08/10/2018 GERD (gastroesophageal reflux disease) 8 Hypothyroid 08/10/2018 LUIS (obstructive sleep apnea) 08/10/2018 Type 2 diabetes mellitus 08/10/2018 Bipolar I disorder, most rec ent episode depressed, in full remission 05/26/2018 Bipolar II disorder 06/01/2012 Resolved Problems Problem Noted Date Diagnosed Date Resolved Date Morbid obesity 05/06/2018 10/01/2018 Social History Tobacco Use Types Packs/Day Years Used Date Smoking Tobacco: Never Smokeless Tobacco: Never Tobacco Cessation:Counseling Given: Not Answered Alcohol Use Standard Drinks/Week Comments Yes 0 (1 standard drink = 0.6 oz pur e alcohol) rare Comments No Sex and Gender Information Value Date Recorded Sex Assigned at Not on file 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 Gender Identity Not on file Sexual Orientation Not on file Last Filed Vital Signs Vital Sign Reading Time Taken Comments Blood Pressure 132/62 04/28/2024 6:48 PM CDT Pulse 63 04/28/2024 6:48 PM CDT Temperature 36.9 C (98.5 F) 04/28/2024 6:48 PM CDT Respiratory Rate 22 04/28/2024 6:48 PM CDT Oxygen Saturation 99% 04/28/2024 6:48 PM CDT Inhaled Oxygen Concentration - - Weight 90.7 kg (200 lb) 04/28/2024 6:48 PM CDT Height 162.6 cm (5' 4 ) 04/28/2024 6:48 PM CDT Body Mass Index 34.33 04/28/2024 6:48 PM CDT Plan of Treatment Not on file Insurance MEDICARE [facility] CLAIMS MEDICARE [facility] MEDICARE Advance Directives For more information, please contact: [phone] * Full Code (Latest Code Status on File) Date Activated Date Inactivated Comments 10/01/2018 5:46 PM 10/04/2018 2:50 PM Care Teams Threshing Operator Relationship Specialty Start Date End Date Elio Tobar MD [address] [place] [address] PCP - General Internal Medicine 05/05/18 Felipe Conte MD [phone] [place] [address] Referring Physician General Surgery 05/05/18 Benoit Pond, [address] [address] [place] [address] Physical Therapist Physical Therapy 05/26/18
--- OUTSIDE RECORDS SUMMARY | 2024-12-30 11:18 | XMS_ITS | Encounter Summary ---
Author Organization [facility] Address [address] [place] [address] Care Team Providers Care Seaming Inspector Name Role Phone Shruthi Haynes MD Primary Care Provider + Elio Tobar MD Primary Care Provider [phone] Felipe Conte MD Unavailable [phone] Benoit Pond DPT Unavailable Unavailable Encounter Details Date Type Department Care Team (Late st Contact Info) Description 10/01/2016 Orders Only [facility] ProviderUlises MD [address] [place] [address] Social History Tobacco Use Types Packs/Day Years Used Date Smoking Tobacco: Never Comments Unknown Sex and Gender Information Value Date Recorded Sex Assigned at Not on file 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 Historical Provider [facility] RUDOLPH MARES Final Result documented in this encounter Visit Diagnoses Not on filedocumented in this encounter Care Teams Seaming Inspector Relationship Specialty Start Date End Date Shruthi Haynes MD [address] [place] [address] PCP - General 10/09/08 05/04/18 Elio Tobar MD [address] [facility] [address] [place] [address] PCP - General Internal Medicine 05/05/18 Felipe Conte MD [phone] [place] [address] Referring Physician General Surgery 05/05/18 Benoit Pond, [address] [address] [place] [address] Physical Therapist Physical Therapy 05/26/18 documented as of this encounter
--- OUTSIDE RECORDS SUMMARY | 2024-12-30 11:18 | XMS_ITS | Clinical Summary ---
Author Organization [facility] Address [address] [place] [address] Care Team Providers Care Communications Project Lead Name Role Phone Elio Tobar MD Primary Care Provider [phone] Social History Tobacco Use Types Packs/Day Years Used Date Smoking Tobacco: Never Assessed Comments Unknown Sex and Gender Information Value Date Recorded Sex Assigned at Not on file Legal Sex Female 5:06 PM CDT Gender Identity Not on file Sexual Orientation Not on file Plan of Treatment Health Maintenance Due Date Last Done Comments Colorectal Cancer Screening Colonoscopy (10 Years) 1957 Hepatitis C 1975 Mammogram Screening 1997 Zoster Vaccines (1 of 2) 2007 Annual Medicare Wellness Visit 2022 Dexa Scan (General) 2022 Pneumococcal Vaccine: 65+ Years (1 of 1 - PCV) 2022 DTaP, Tdap and Td Vaccines ( 2 - Td or Tdap) 02/02/2024 02/01/2014 COVID-19 Vaccine (3 - 2023-2 5 season) 2024 01/14/2021, 12/21/2020 RSV Immunization or 60+ Years (1 - 1-dose 75+ series) 2032 Meningococcal B Vaccine Aged Out No l onger eligible based on patient's age to complete this topic Meningococcal Vaccine Aged Out No mariela yu eligible based on patient's age to complete this topic RSV Immunizations Under 20 Months Aged Out No longer eligible b ased on patient's age to complete this topic Insurance MEDICARE [facility] Care Teams Communications Project Lead Relationship Specialty Start Date End Date Elio Tobar MD [address] [place], [place] [id number] PCP - General INTERNAL MEDICINE 06/19/21
--- OUTSIDE RECORDS SUMMARY | 2024-12-30 11:18 | XMS_ITS | Clinical Summary ---
Author Organization [facility] Address [facility] [place] [address] Care Team Providers Care Software Test Analyst Name Role Phone Elio Tobar MD Primary Care Provider [phone] Felipe Conte MD Unavailable [phone] Benoit Pond DPT Unavailable Unavailable Allergies Active Allergy Reactions Criticality Noted Date Comments Codeine Itching Low Tapentadol Itching Low 10/01/2018 Tramadol Itching Low 05/05/2018 Medications levothyroxine (SYNTHROID) 50 mcg tablet Take 88 mcg by mouth sanitor before breakfast 8 Active folic acid 20 [...] (09/09/2018): Added automatically from request for surgery [id number] Anxiety 08/10/2018 Depression 08/10/2018 GERD (gastroesophageal reflux disease) 8 Hypothyroid 08/10/2018 LUIS (obstructive sleep apnea) 08/10/2018 Type 2 diabetes mellitus 08/10/2018 Bipolar I disorder, most rec ent episode depressed, in full remission 05/26/2018 Bipolar II disorder 06/01/2012 Resolved Problems Problem Noted Date Diagnosed Date Resolved Date Morbid obesity 05/06/2018 10/01/2018 Surgical History Surgery Date Site/Laterality Comments SECTION HYSTERECTOMY TOTAL KNEE ARTHROPLASTY TONSILLECTOMY/ADENOIDECTOMY FOOT SURGERY Right KNEE ARTHROSCOPY Medical History Medical History Date Comments Type 2 diabetes mellitus (HCC) Sleep apnea GERD (gastroesophageal reflux disease) Bipolar disorder (HCC) Anxiety Depression Hypothyroidism Morbid obesity (HCC) PONV (postoperative nausea and vomiting) after hysterectomy, related to demerol Family History Medical History Relation Name Comments Cancer Father Heart attack Father Hypertension Father Cancer Mother Stroke Mother overweight Mother Cancer Sister overweight Sister Relation Name Status Comments Father Mother Sister Social History Tobacco Use Types Packs/Day Years Used Date Smoking Tobacco: Never Smokeless Tobacco: Never Tobacco Cessation:Counseling Given: Not Answered Alcohol Use Standard Drinks/Week Comments Yes 0 (1 standard drink = 0.6 oz pur e alcohol) rare Comments No Sex and Gender Information Value Date Recorded Sex Assigned at Not on file 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 Gender Identity Not on file Sexual Orientation Not on file Obstetrics History Last Filed Vital Signs Vital Sign Reading [...] 04/28/2024 6:48 PM CDT Plan of Treatment Health Maintenance Due Date Last Done Comments Albumin Creatinine Ratio, Urine 1957 Breast Cancer Screening-Mammogram 1957 Colon Cancer Screening-Colonoscopy 1957 Depression Screening 1957 Fall Risk Assessment 1957 Hemoglobin A1C 1957 Hepatitis C Screening 1957 Osteoporosis Screening-Bone Density Scan 1957 eGFR 1957 Dilated Eye Exam 1957 Foot Exam 1957 Lipid Panel 1957 Hepatitis B Screening 1975 Pneumococcal vaccine 65+ (1 of 2 - PCV) 1976 Zoster Vaccine (1 of 2) 2007 Well Visit 65+ 2022 DTaP/Tdap/Td Vaccine (2 - Td or Tdap) 02/02/2024 Influenza Vaccine (Season Ended) 2025 Insurance MEDICARE [facility] MEDICARE [facility] CLAIMS [facility] Address: [address] [place] [address] MEDICARE Advance Directives For more information, please contact: [phone] * Full Code (Latest Code Status on File) Date Activated Date Inactivated Comments 10/01/2018 5:46 PM 10/04/2018 2:50 PM Care Teams Software Test Analyst Relationship Specialty Start Date End Date Elio Tobar MD [address] [place] [address] PCP - General Internal Medicine 05/05/18 Felipe Conte MD [phone] [place] [address] Referring Physician General Surgery 05/05/18 Benoit Pond D[address] [address] [place] [address] Physical Therapist Physical Therapy 05/26/18
--- OUTSIDE RECORDS SUMMARY | 2024-12-30 11:18 | XMS_ITS | CONTINUITY OF CARE DOCUMENT ---
Author Name paula mitchell Address Unknown Organization [facility] Address [address] [place] [address] [address] [place] [address] Phone [phone] Care Team Providers Care Preanalytics Team Lead Name Role Phone Zaira DIEHL, Dave Unavailable [phone] FORTINO PACK MD Unavailable INSURANCE PROVIDERS Payer name Policy type / Coverage type Jackie red green party ID FOR LIFE [id number] [id number] [place] Medicare [id number]
--- OUTSIDE RECORDS SUMMARY | 2024-12-30 11:18 | XMS_ITS ---
Author Organization [facility] Address [address] [facility] [address] [place] [address] Care Team Providers Care Test Preparer Name Role Phone Fatoumata DIEHL, Apollo Primary Care Provider Jordyn Finn Unavailable [phone] Allergies Allergen (clinical drug ingredient) Drug/Non Drug Allergy documented on EMR Reaction Allergy Type Onset Date Status Talwin Unknown Drug Allergy 11/24/2023 Active tramadol Ultram Unknown Drug Allergy 11/24/2023 Active tapentadol Nucynta Unknown Drug Allergy 11/24/2023 Activ e codeine Codeine Unknown Drug Allergy 11/24/2023 Active REASON FOR VISIT 1 month f/u, Depression screening positive Medications Medication SIG (Take, Route, Frequency, Duration) Notes Start Date End Date Status Tylenol 325 mg ORAL 11/24/2023 Acti ve QUEtiapine Fumarate 50 MG 3 tablets once a day for 7 days, 2 tablets once a day for 7 days, 1 tablet once a day for 7 days Oral for 21 days taper down then stop 11/28/2024 Active Levothyroxine Sodium 50 MCG Oral 11/24/2023 Active Synthroid 50 MCG Oral 11/24/2023 Ac tive MULTIVITAMIN 50 PLUS *Reorder fr [facility] for eRx and Interaction Alerts* 11/24/2023 Active Omeprazole 40 MG 1 capsule 1/2 to 1 hour before morning meal Orally Once a day Active buPROPion HCl 100 MG 1 tablet Oral three times a day for 30 days Active QUEtiapine Fumarate 50 MG 0.5 to one whole tablet at bedtime oral daily for 30 days As needed Active Caplyta 42 MG as directed Orally 11/23/2024 Active Escitalopram Oxalate 20 MG 1 tablet Orally Once a day for 30 days DC 10 mg 11/23/2024 Active Social History Tobacco Use: Social History Observation [...] alcohol in the p ast year? No Problems Problem Type SNOMED Code ICD Code Onset Dates Problem Status W/U Status Risk Notes Problem Insomnia disorder related to another mental disorder (79515295) Insomnia due to other mental disorder (F51.05) Active confirmed Vital Signs Blood pressure systolic 106 mm Hg 12/22/19 25 Blood pressure diastolic 67 mm Hg 025 Heart Rate 62 /min 12/21/2024 Height 65.00 in 12/21/2024 Weight 210 lbs 12/21/2024 BMI 34.94 kg/m2 12/21/2024 Height-cm 165.10 cm 12/21/2024 Weight-kg 95.26 kg 12/21/2024 Encounters Encounter Location Date Provider Diagnosis [facility] [address] [address] 12/21/2024 Jordyn Luis Encounter for screening for depression Z13.31 ; Encounter for screening for cardiovascular disorders Z13.6 ; Insomnia due to other mental disorder F51.05 ; Primary insomnia F51.01 ; Bipolar I disorder F31.9 and Generalized anxiety disorder F41.1 Assessments Encounter Date Diagnosis (ICD Code) Assessment Notes Treatment Notes Treatment Clinical Notes Section Notes 12/21/2024 Encounter for screening for depression (ICD-10 - Z13.31) 12/21/2024 Encounter for screening for cardiovascular disorders (ICD-10 - Z13.6) 12/21/2024 Insomnia due to other mental disorder (ICD-10 - F51.05) 12/21/2024 Primary insomnia (ICD-10 - F51.01) 12/21/2024 [...] tolerated - Discuss risks and benefits of sedative-hypnotic medications, including potential for dependence and tolerance [...] bypass surgery necessitated switch from extended-release to immediate-release bupropion. Plan: - Submit prior authorization for Caplyta to insurance - Provide patient education on proper medication administration and potential side effects - Advise patient to organize medications to prevent future medication errors - Coordinate care with kettle loader regarding use of ibuprofen despite kidney issues - Monitor cholesterol and blood glucose levels Plan Of Treatment Medication Medication Name Sig Start Date Stop Date Notes buPROPion HCl 100 MG 1 tablet Oral three times a day for 30 days QUEtiapine Fumarate 50 MG 0.5 to one who le tablet at bedtime oral daily for 30 days Caplyta 42 MG as directed Orally 11/23/2024 Escitalopram Oxalate 20 MG 1 tablet Oral ly Once a day for 30 days 11/23/2024 DC 10 mg Treatment Notes Assessment Notes Bipolar I disorder Electronic Prior Aut horization was requested for Caplyta 42 MG Capsule. Provider can order medication once approval received. Next Appt Details Provider Name:Jordyn Nikki vogel, 01/16/2025 02:45:00 PM, [address], [facility] [address], [place], [address], Progress Notes * AIDA NELSONISDOB:1955 (69 yo F)Acc No.[id number]:12/21/2024 Patient: MEDARDO BAEZ Provider: Stas Luis :1955 A ge:69 Y S ex:Female Date:12/21/2024 Address:[address] [place], [place] [id number] Pcp:Apollo Ham MD Subjective: * Chief Complaints: * 1 . 1 month f/u. 2. Depression screening positive. * HPI: D epression Screening: History of Present Illness Medardo Nelson is a patient with a history of psychiatric treatment and gastric bypass surgery who presents for medication management. She reports overall improvement in mood and energy levels but expresses concerns about sleep and medication side effects. The patient states she has been receiving injections every 3 months for the past year, though the nature of these injections is not specified. She admits to taking ibuprofen despite being advised against it due to kidney problems, as it helps alleviate discomfort. This morning, she accidentally took haloperidol instead of her acid indigestion medication, resulting in dizziness and fatigue. Regarding her psychiatric medications, Medardo reports taking Caplyta 42mg, Lexapro 20mg, and bupropion (Wellbutrin) 100mg three times daily (immediate release due to gastric bypass). She continues to take quetiapine (Seroquel) 50mg at bedtime for sleep, despite previous recommendations to discontinue it. She expresses willingness to reduce the dose to 25mg in an attempt to taper off. The patient reports improved mood, temperament, and energy levels. She denies any thoughts of self-harm. The only movement issue she experiences is tapping, which she can control once aware of it. A neurologist has ruled out tardive dyskinesia, and she denies any tongue, mouth, blinking, or teeth grinding issues. Medardo expresses concern about her sleep and requests an alternative to Seroquel. She has tried xbsj-zzb-nrgapvw sleep aids and Nyquil without success. She mentions that Belsomra was helpful in the past but required early evening administration due to morning grogginess. The patient discloses a history of Xanax abuse and expresses caution regarding controlled substances, acknowledging a tendency to take more than prescribed when unable to sleep. Regarding her physical health, Medardo reports that her cholesterol and blood sugar levels have been within normal range according to her kidney doctor. Medications and Supplements The patient receives injections every 3 months. They take ibuprofen despite kidney problems, as it helps with pain. Current medications include Caplyta 42mg, Seroquel 50mg at bedtime for sleep, Lexapro 20mg, and bupropion immediate release 100mg three times daily. The patient accidentally took haloperidol instead of their acid indigestion medication, causing dizziness and tiredness. They have a history of Xanax abuse. The patient is allergic to trazodone. They have tried nigc-ptt-odlgrye sleep aids and Nyquil without success. Belsomra was helpful for sleep but caused morning grogginess. The patient reports normal cholesterol and blood sugar levels. Social History The patient has a history of substance abuse, specifically mentioning past abuse of Xanax. She expresses caution regarding controlled substances due to this history, acknowledging a tendency to abuse medications if she has difficulty sleeping. The patient reports a history of sleepwalking, sleep eating, and sleep driving, which may be related to past medication use. She has undergone gastric bypass surgery, which has affected her medication regimen. The patient appears to have regular medical care, mentioning appointments with a kidney doctor and a neurologist. Medical History The patient has a history of kidney problems. They previously abused Xanax and have a tendency to abuse substances. The patient has experienced sleepwalking, sleep eating, and sleep driving. They have undergone gastric bypass surgery in the past. The patient is allergic to trazodone. There is no mention of current suicidal ideation. Review of Systems - General: Dizzy, tired - Neurological: Tapping (can stop when aware) - Psychiatric: Improved mood, more energy, better sleep - Sleep: Difficulty sleeping without medication. AYDEN-7 (2018 Edition) F eeling nervous, anxious, or on edge N ot at all N ot being able to stop or control worrying?Not at all W orrying too much about different things N ot at all T rouble relaxing N ot at all B eing so restless that it is hard to sit still N ot at all B ecoming easily annoyed or irritable N ot at all F eeling afraid as if something awful might happen N ot at all [place]-Suicide Severity Rating Scale: Suicide Risk (CSRS-screener) i n the past one month Have you wished you were or wished you could go to sleep and not wake up? N o i n the past one month Have you actually had any thoughts of killing yourself? N o H ave you ever done anything, started to do anything, or prepared to do anything to end your life? N o D epression screening: PHQ-9 L ittle interest or pleasure in doing things?Not at all F eeling down, depressed, or hopeless N ot at all T rouble falling or staying asleep, or sleeping too much N early every day F eeling tired or having little energy M ore than half the days P oor appetite or overeating N early every day F eeling bad about yourself or that you are a failure, or have let yourself or your family down S everal days T rouble concentrating on things, such as reading the newspaper or watching television N ot at all M oving or speaking so slowly that other people could have noticed; or the opposite, being so fidgety or restless that you have been moving around a lot more than usual N ot at all T houghts that you would be better off or of hurting yourself in some way N ot at all T otal Score 9 I nterpretation M ild Depression Intervention D epression Screening Findings P ositve F ollow-Up for Depression M ental health treatment assessment, Patient follow-up to return when and if necessary S uicide Risk Assessment Performed 0 12/21/2024 A dditional Evaluation for Depression P sychiatric interview and evaluation N christie of the standardized tool used for adult depression screening: [facility] * ROS: P erformance Met: N ormal blood pressure reading documented, follow-up not required ( G8783)Performance Met: N ormal blood pressure reading documented, follow-up not required ( G8783). * Medical History: P roblems: Acquired hypothyroidism, Obesity, Obstructive sleep apnea syndrome, Primary insomnia, Past Psychiatric History: Anxiety Disorder,Major Depressive Episode,Bipolar Disorder, Chronic fatigue syndrome. * Social History: T obacco Use: T obacco Control (Standard) T obacco use: N onsmoker D rug/Alcohol: D rugs H ave you used drugs other than those for medical reasons in the past 12 months? N o Do you drink alcohol?: Occasionally. AUDIT-C (Standard) D id you have a drink containing alcohol in the past year? N o H ousehold: Alice Cuellar arital status: m arried N umber of adults in household: 2 M iscellaneous: S afety issues A re there any firearms in the house? Y es Advance Care Planning A re you your own decision-maker Y es D o you have Power of Chairman Of The Board for Health or Medical? N o A dvance Directive R efused to discuss advance care planning S ocial History: Alice Cuellar arital Status: M arried N umber of Adults in household: 2 N umber of Children in Household: 0 L evel of Education: [employer] in[employer] * Medications: T aking Omeprazole 40 MG Capsule Delayed Release 1 capsule 1/2 to 1 hour before morning meal Orally Once a day , Taking Tylenol 325 mg CAPSULE ORAL , Taking MULTIVITAMIN 50 PLUS , Notes to Pharmacist: *Reorder from [facility] for eRx and Interaction Alerts*, Taking Synthroid 50 MCG Tablet Oral , Taking Levothyroxine Sodium 50 MCG Tablet Oral , Taking QUEtiapine Fumarate 100 mg Tablet 2 tablets at bedtime oral daily , Taking buPROPion HCl 100 MG Tablet 1 tablet Oral three times a day , Taking Escitalopram Oxalate 20 MG Tablet 1 tablet Orally Once a day , Notes to Pharmacist: DC 10 mg, Taking Caplyta 10.5 MG Capsule as directed Orally , Taking QUEtiapine Fumarate 50 MG Tablet 3 tablets once a day for 7 days, 2 tablets once a day for 7 days, 1 tablet once a day for 7 days Oral taper down then stop, Medication List reviewed and reconciled with the patient * Allergies: T aleida: Allergy - Onset Date 11/24/2023, Ultram: Allergy - Onset Date 11/24/2023, Nucynta: Allergy - Onset Date 11/24/2023, Codeine: Allergy - Onset Date 11/24/2023. Objective: * Vitals: B P:106/67mm Hg, HR:62/min, Wt:210lbs, Wt-k.26 kg, Ht: 65.00 in, Ht-cm: 165.10 cm, BMI:34.94Index, Body Surface Area: 2.09. * Examination: G eneral Examination: P hysical Examination Neurological: Patient reports tapping movement that can be controlled once aware of it. No tongue or mouth movements, blinking issues, or teeth grinding observed. Neurologist reportedly ruled out tardive dyskinesia. Mental Status Examination - Motor: Patient reports tapping, which can be controlled when aware of it. Neurologist ruled out tardive dyskinesia. No tongue or mouth movements, blinking issues, or teeth grinding observed. - Mood: Patient reports mood has been better. - Thought Content: Denies current thoughts of self-harm. - Cognition: Alert and oriented. Patient able to recall medication regimen and dosages accurately. - Insight: Insight appears fair. Patient recognizes past substance abuse issues with Xanax and expresses desire to be cautious with controlled substances. - Judgment: Judgment appears fair. Patient demonstrates ability to make decisions about medication management and recognizes the need to adjust dosages under medical supervision. Laboratory, Imaging, and Diagnostic Test Results - Cholesterol: Normal (within range) - Blood glucose: Normal (within range). Assessment: * Assessment: 1. E ncounter for screening for depression - Z13.31 2 . E ncounter for screening for cardiovascular disorders - Z13.6 3 . I nsomnia due to other mental disorder - F51.05 4 . P rimary insomnia - F51.01 5 . B ipolar I disorder - F31.9 6 . G eneralized anxiety disorder - F41.1 Plan: * Treatment: 2. B ipolar I disorder Refill buPROPion HCl Tablet, 100 MG, 1 tablet, Oral, three times a day, 30 days, 90 Tablet, Refills 1; I ncrease Caplyta Capsule, 42 MG, as directed, Orally. Notes: Electronic Prior Authorization was requested for Caplyta 42 MG Capsule. Provider can order medication once approval received. 3. G eneralized anxiety disorder Refill Escitalopram Oxalate Tablet, 20 MG, 1 tablet, Orally, Once a day, 30 days, 30, Refills 1, Notes to Pharmacist: DC 10 mg. 4. O thers Clinical Notes: Medardo Nelson is a patient with a history [...] tolerated - Discuss risks and benefits of sedative-hypnotic medications, including potential for dependence and tolerance [...] bypass surgery necessitated switch from extended-release to immediate-release bupropion. Plan: - Submit prior authorization for Caplyta to insurance - Provide patient education on proper medication administration and potential side effects - Advise patient to organize medications to prevent future medication errors - Coordinate care with kettle loader regarding use of ibuprofen despite kidney issues - Monitor cholesterol and blood glucose levels * Procedure Codes: G 8783 NORMAL BP READING DOC F/U NOT RQR, G8783 NORMAL BP READING DOC F/U NOT RQR, 62450 BEHAV ASSMT W/SCORE & DOCD/STAND INSTRUMENT, G8431 CLIN DEPRESSION SCREEN DOC, G8752 MOST RECENT SYSTOLIC BP < 140MM HG, G8752 MOST RECENT SYSTOLIC BP < 140MM HG, G8754 MOST RECENT DIASTOLIC BP < 90MM HG, G8754 MOST RECENT DIASTOLIC BP < 90MM HG * Billing Information: * Visit Code: * Procedure Codes: G8783 NORMAL BP READING DOC F/U NOT RQR. G8783 NORMAL BP READING DOC F/U NOT RQR. 75350 BEHAV ASSMT W/SCORE & DOCD/STAND INSTRUMENT. G8431 CLIN DEPRESSION SCREEN DOC. G8752 MOST RECENT SYSTOLIC BP < 140MM HG. G8752 MOST RECENT SYSTOLIC BP < 140MM HG. G8754 MOST RECENT DIASTOLIC BP < 90MM HG. G8754 MOST RECENT DIASTOLIC BP < 90MM HG. * Electronic signature of Kenton Luis on 12/30/2024 at 11:18 AM CDT Sign off status: Pending * Provider: Stas Luis Date: 12/21/2024 Generated for Janis alarcon/Javi/Evelyne on: 12/30/2024 11:18 AM CDT History and Physical Notes * HPI (History of Present Illness) Category Sub-Category Detail Notes Category Not es Depression screening PHQ-9 Little inte rest or pleasure in doing things: Not at all Feeling down, depressed, or hopeless: No t at all Trouble falling or staying asleep, or sl eeping too much: Nearly every day Feeling tired or having little energy: M ore than half the days Poor appetite or overeating: Nearly ever y day Feeling bad about yourself o r that you are a failure, or have let yourself or your family down: Several days Trouble concentrating on thi ngs, such as reading the newspaper or watching television: Not at all Moving or speaking so slowly that other people could have noticed; or the opposite, being so fidgety or restless that you have been moving around a lot more than usual: Not at all Thoughts that you would be b eloina off or of hurting yourself in some way: Not at all Total Score: 9 Interpretation: Mild Depression Intervention Depression Screening Findings: P ositve Follow-Up for Depression: [facility] treatment assessment, Patient follow-up to return when and if necessary Suicide Risk Assessment Performed: 12/21 Additional Evaluation for Depression: Ps ychiatric interview and evaluation Name of the standardized too l used for adult depression screening:: Patient Health Questionnaire (PHQ-9) Depression Screening AYDEN-7 (2018 Edition) Feelin g nervous, anxious, or on edge: Not at all Not being able to stop or control worryi ng: Not at all Worrying too much about different things : Not at all Trouble relaxing: Not at all Being so restless that it is hard to sit still: Not at all Becoming easily annoyed or irritable: No t at all Feeling afraid as if something awful navya ht happen: Not at all [place]-Suicide Severity Rating Scale Suicide Risk (CSRS-screener) in the past one month Have you wished you were or wished you could go to sleep and not wake up?: No in the past one month Have y ou actually had any thoughts of killing yourself?: No Have you ever done anything, started to do anything, or prepared to do anything to end your life?: No Examination Category Sub-Category Detail Notes Category Not es General Examination Physical Examination Neurological: Patient reports tapping movement that can be controlled once aware of it. No tongue or mouth movements, blinking issues, or teeth grinding observed. Neurologist reportedly ruled out tardive dyskinesia. Mental Status Examination - Motor: Patient reports tapping, which can be controlled when aware of it. Neurologist ruled out tardive dyskinesia. No tongue or mouth movements, blinking issues, or teeth grinding observed. - Mood: Patient reports mood has been better. - Thought Content: Denies current thoughts of self-harm. - Cognition: Alert and oriented. Patient able to recall medication regimen and dosages accurately. - Insight: Insight appears fair. Patient recognizes past substance abuse issues with Xanax and expresses desire to be cautious with controlled substances. - Judgment: Judgment appears fair. Patient demonstrates ability to make decisions about medication management and recognizes the need to adjust dosages under medical supervision. Laboratory, Imaging, and Diagnostic Test Results - Cholesterol: Normal (within range) - Blood glucose: Normal (within range)
[2024-12-30 12:01] LABS: Basophils Percent Auto 0.5 % (0.2-1.2); Eosinophils Absolute Auto 0.2 K/mm3 (0-0.3); Eosinophils Percent Auto 4.4 % (0-4.4); Hematocrit 34.2 % (37.0-47.0); Hemoglobin 10.6 g/dL (12.0-15.0); Immature Granulocyte Absolute 0.01 K/mm3 (0.00-0.031); Immature Granulocyte Percent A 0.2 % (0-0.5); Lymphocytes Absolute Auto 0.88 K/mm3 (0.9-3.2); Lymphocytes Percent Auto 21.6 % (18.3-44.2); Mean Corpuscular Hemoglobin 25.9 pg (26-34); Mean Corpuscular Volume 83.6 fl (80-100); Mean Platelet Volume 11.5 fl (7.4-10.4); Monocytes Absolute Auto 0.7 K/mm3 (0.1-0.6); Monocytes Percent Auto 17.2 % (2.6-8.5); Neutrophils Absolute Auto 2.3 K/mm3 (1.3-6.7); Neutrophils Percent Auto 56.1 % (45.5-73.1); Platelet Count Result 182 k/mm3 (150-375); Red Blood Count 4.09 M/mm3 (4.2-5.4); Red Cell Distribution Width 15.6 % (11.5-14.5); White Blood Count 4.1 K/mm3 (4.5-10.0)
[2024-12-30 12:20] LABS: Cholesterol 130 mg/dL (0-200); HDL Direct 53 mg/dL; Triglycerides 87 mg/dL (<150)
[2024-12-30 12:31] LABS: LDL Cholesterol Direct 44 mg/dL
[2024-12-30 12:41] LABS: Free T4 Free Thyroxine 1.27 ng/dL (0.78-2.19)
[2024-12-30 14:08] LABS: Cortisol Random 7.26 ug/dL
[2025-01-02 17:15] LABS: Iron 38 ug/dL (37-170)
[2025-01-02 17:24] LABS: Percent Iron Saturation 8 % (20-50)
== END 2024-12-30 10:42 | disposition home or self-care (01) ==
PROVIDERS: PCP Family Medicine; Visit Provider Physician Assistant Medical
DX: E03.9 Hypothyroidism, unspecified (principal); N18.30 Chronic kidney disease, stage 3 unspecified; R79.89 Other specified abnormal findings of blood chemistry; L65.9 Nonscarring hair loss, unspecified; E78.5 Hyperlipidemia, unspecified; D64.9 Anemia, unspecified
CPT/HCPCS: 36415; 80061; 82533; 83540; 83550; 84439; 84443; 85025

== ENCOUNTER 2025-01-02 09:01 | Emergency (ER) | payer MEDICARE, OTHER, SELFPAY ==
--- NOTE | ~2025-01-02 | XR_ITS ---
CHEST RADIOGRAPH, PA AND LATERAL CLINICAL HISTORY: cough sob . COMPARISON: 09/01/2022 TECHNIQUE: PA and lateral views of the chest. FINDINGS The cardiomediastinal silhouette is unremarkable. Increased interstitial markings are identified bilaterally, findings suggesting mild pulmonary vascul ar congestion. The lungs are otherwise clear. IMPRESSION: Mild pulmonary vascular congestion, without infiltrate or effusion. Reviewed, dictated and finalized at location A.
--- NOTE | 2025-01-02 09:03 | ED.URI ---
HPI - URI/Sore Throat General Chief Complaint: Upper Respiratory Infection Stated Complaint: sob and coughing Time Seen by Provider: 01/02/25 09:02 Source: patient Mode of arrival: ambulatory Limitations: no limitations History of Present Illness HPI Narrative: Patient is a 69-year-old female presents with cough and feeling like she can not catch her breath for 5 days. Patient states she had her wellness visit on Thursday and was fine. started to have congestion, Thursday developed a cough and yesterday began feeling short breath with exertion. Patient started Medrol Dosepak that she had at home on Thursday. Patient has also been taking Robitussin and Mucinex. Denies any fever, chills, nausea, vomiting, diarrhea. States she feels like her air is getting trapped in her throat/upper chest. Related Data Home Medications ?Medication ?Instructions ?Recorded ?Confirmed ?Last Taken ?Type bupropion HCl 100 mg tablet,12 hr 100 mg PO TID 07/16/20 01/02/25 07/11/22 07:00 History sustained-release (Wellbutrin SR) quetiapine 100 mg tablet (Seroquel) 100 mg PO HS 09/24/20 01/02/25 07/09/22 History multivitamin,ic-yxmi-lekksdqv 1 tablet PO DAILY 05/23/21 01/02/25 07/09/22 History escitalopram oxalate 5 mg tablet 20 mg PO DAILY 12/01/24 01/02/25 Unknown History lactobacillus combination no.9 4 4,000 mmu cells PO DAILY 12/01/24 01/02/25 Unknown History billion cell capsule (Adult 50 Plus Probiotic) lumateperone 21 mg capsule 21 mg PO DAILY 12/01/24 01/02/25 Unknown History (Caplyta) Allergies Allergy/AdvReac Type Severity Reaction Status Date / Time hydrocodone Allergy Mild Itching Verified 01/02/25 09:11 pentazocine Allergy Mild Itching Verified 01/02/25 09:11 tapentadol Allergy Mild Itching Verified 01/02/25 09:11 tramadol Allergy Mild Itching Verified 01/02/25 09:11 codeine AdvReac Mild Itching Verified 01/02/25 09:11 Review of Systems Review of Systems: All systems reviewed & are unremarkable except as noted in HPI and below Constitutional: Constitutional: Denies chills, Denies fatigue, Denies fever(s), Denies headache(s), Denies malaise and Denies weakness Eyes: Eyes: Denies blurry vision, Denies itchy eyes and Denies loss of vision ENT: Denies otalgia, Denies headache(s), Reports nasal congestion, Denies sinus pain and Denies sore throat Cardiovascular: Cardiovascular: Denies chest pain, Denies irregular heart rhythm and Denies dyspnea Respiratory: Respiratory: Reports chest congestion, Reports cough and Reports dyspnea Gastrointestinal: Gastrointestinal: Denies abdominal pain, Denies diarrhea, Denies nausea and Denies vomiting Musculoskeletal: Musculoskeletal: Denies back pain, Denies myalgias and Denies arthralgias Integumentary/Breasts: Skin/Breast: Denies pruritus and Denies rash Neurologic: Denies headache(s), Denies loss of vision and Denies weakness Psychiatric: Psychiatric: Reports no additional psychiatric complaints Endocrine: Endocrine: Denies fatigue Allergic/Immunologic: Allergic/Immunologic: Denies itchy eyes PMFSH Past Medical History Medical History BMI 36.0-36.9,adult Arthritis of hand, right Finger fracture, right BMI 34.0-34.9,adult Adult BMI 33.0-33.9 kg/sq m Screen for colon cancer BMI over 35 Screening for lipid disorders Weight gain following gastric bypass surgery Anxiety Depression Left knee pain Right knee pain Arthritis Hypothyroid Chronic back pain Bipolar 1 disorder Surgical History Surgical History H/O gastric bypass History of foot surgery L arch of foot cyst removal History of arthroscopy of both knees History of hysterectomy History of tonsillectomy History of 2 sections History of total knee replacement Family History Family History Sibling Family history of obesity Patient's sister is in good health Family history of malignant neoplasm of breast in first degree relative Family history of malignant neoplasm Father Family history of mental disorder Depression Hypertension Family history of elevated blood lipids Family history of alcoholism Family history of lung cancer, Onset Age: 72 Family history of coronary artery disease Family history of chronic obstructive pulmonary disease Family history of emphysema, Onset Age: 72 Family history of cardiovascular disease Family history of malignant neoplasm Mother Hypertension Patient's mother is in good health Family history of elevated blood lipids Cerebrovascular accident Family history of heart disease in male family member before age 55 Family history of chronic obstructive pulmonary disease Sibling , breast cancer 2015 Breast cancer Other Asthma Family history of allergic disorder Family history of migraine headaches Heart disease Social History Social History Smoking status: Never smoker Second hand tobacco smoke exposure: No Alcohol intake: current Alcohol use details: once or twice a year Substance use: never Substance use type: does not use Current Housing: Decline to Answer Concerned About Future Housing: Decline to Answer Difficulty Paying Gas/Electric Bills: Decline to Answer Difficulty Paying for Meds: Decline to Answer Currently Unemployed: Decline to Answer Education: Decline to Answer Difficulty w/ Childcare or Family Care: Decline to Answer Living arrangements: with family Occupation/Education: retired 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 Gender identity (if verbalized by the patient): Female Spiritual care concerns: No Comments At time of signature, agree with nursing past medical, surgical, social and family history. There is no relevant family history pertinent to the presenting complaint. Exam Const: General: cooperative, healthy appearing, comfortable, no acute distress and well nourished Nutritional Appearance: well nourished Orientation/consciousness: patient oriented x3 Limitations: no limitations HENMT: Head: normal to inspection, normocephalic and atraumatic Ears: hearing grossly normal bilaterally, external ears normal, TM's normal bilaterally, EAC's normal and no periauricular adenopathy Face/Nose/Sinus: Normal external nose present, Abnormal mucous membranes and turbinates present erythematous bilateral and diffuse, normal facial exam, sinuses nontender and face symmetric Face and sinus: normal facial exam, sinuses nontender and face symmetric Mouth: Yes Normal oral and palatal mucosa present, Yes lip normal, Yes tongue normal, Yes Normal salivary glands and ducts present, Yes oropharynx normal and Yes moist mucous membranes Teeth and gingiva: dentition normal Throat: posterior oropharynx normal, tonsils normal and uvula midline Eyes: General: appearance normal, both eyes and all related structures Alignment and Position: alignment normal and position normal Periorbital: periorbital findings normal Eyelids: eyelids normal Pupils: Equal, round and reactive pupils present Neck: Neck: normal visual inspection, full ROM, no lymphadenopathy and supple Chest: Chest palpation & inspection: normal inspection of the chest and normal palpation of entire chest wall Resp: Effort & Inspection: normal respiratory effort and able to speak in complete sentences Auscultation: clear to auscultation bilaterally, no crackles, no rales, no rhonchi and no wheezes Cardio: Rate: regular rate Rhythm: regular rhythm Heart sounds: S1 normal heart sound present and S2 normal heart sound present GI: Inspection: normal to inspection Skin: General skin exam: normal color and no rashes or lesions noted Neuro: General: patient oriented x3 and moves all extremities Cranial nerves: Yes Equal, round and reactive pupils present Speech: normal speech Gait exam (Neuro): Normal gait present Extrem: General: normal to inspection, full ROM and no edema Psych: Appearance: grossly normal and well kempt Mental Status: mental status grossly normal Speech and movement: Normal speech and movement present Affect: normal affect Attitude: cooperative Thought process: Normal thought process present Course Course Emergency Course: Patient being transferred to [facility] for further workup and evaluation. Patient needing advanced imaging and blood work to rule out any pulmonary or cardiac involvement. Portions of this record may have been created with voice recognition software Level of Care: Express Care Visit Vital Signs Vital signs: Vital Signs Temperature 37.3 C 01/02/25 09:12 Pulse Rate 76 01/02/25 09:12 Respiratory Rate 32 H 01/02/25 09:12 Blood Pressure 110/53 L 01/02/25 09:12 Pulse Oximetry 99 01/02/25 09:12 Oxygen Delivery Room Air 01/02/25 09:12 Temperature 37.3 C 01/02/25 09:12 Pulse Rate 76 01/02/25 09:12 Respiratory Rate 32 H 01/02/25 09:12 Blood Pressure 110/53 L 01/02/25 09:12 Pulse Oximetry 99 01/02/25 09:12 Oxygen Delivery Room Air 01/02/25 09:12 Reviewed Transfer Transfered to: [place] Transportation: Other (private auto, son is driving) Transfer rationale: Patient needing advanced imaging and blood work to rule out any pulmonary or cardiac involvement. Accepting physician: Marian MOCTEZUMA MDM - URI/Sore Throat MDM Narrative Medical decision making narrative: Patient is negative for COVID flu. Patient appears to be having forced labor breathing, when focusing on taking deep breaths patient is unable to decreased breathing rate and speaking full sentences. Patient states she has had some lightheadedness with her shortness of breath. Explained that may be due to her hyperventilation. After chest x-ray, patient had to be wheeled back to room due to shortness of breath. patient was able walk out without furniture removalist's assistant while speaking with nurse at discharge. Patient states she has never felt this sick in her life. Denies any chest pain, cardiac or pulmonary issues, chest x-ray showing Mild pulmonary vascular congestion, without infiltrate or effusion. Patient did just have labs drawn and I am able to see CBC result with lower hemoglobin and hematocrit but not critically low. No BMP results. Patient being transferred to [facility] for further workup and evaluation. Patient needing advanced imaging and blood work to rule out any pulmonary or cardiac involvement. Pt well hydrated appearing, hemodynamically stable. The patient is stable at time of discharge. Exam findings show no acute concerns or changes Patient is appropriate for outpatient treatment and follow-up. Differential diagnosis considered: COPD, heart failure, Yi virus,viral syndrome, and influenza.? Medical Records Attestation: I reviewed the patient's medical records. Lab Data Attestation: I reviewed the patient's lab results. Labs: Lab Results 01/02/25 Range/Units 09:35 POC Influenza A Ag Negative (Negative) POC Influenza B Ag Negative (Negative) POC SARS CoV-2 Ag Negative (Negative) Imaging Data Radiologist's impression: CHEST RADIOGRAPH, PA AND LATERAL CLINICAL HISTORY: cough sob . COMPARISON: 09/01/2022 TECHNIQUE: PA and lateral views of the chest. FINDINGS The cardiomediastinal silhouette is unremarkable. Increased interstitial markings are identified bilaterally, findings suggesting mild pulmonary vascular congestion. The lungs are otherwise clear. IMPRESSION: Mild pulmonary vascular congestion, without infiltrate or effusion. Discharge Plan Discharge Clinical Impression: Shortness of breath, Cough Patient Disposition: Acute Care Hospital Condition: Stable Patient Language: Lao Prescriptions: No Action quetiapine [Seroquel] 100 mg tablet 100 mg PO HS Adult 50 Plus Probiotic 4 billion cell capsule 4,000 mmu cells PO DAILY Rx Instructions: administer with a meal Caplyta 21 mg capsule 21 mg PO DAILY bupropion HCl [Wellbutrin SR] 100 mg tablet sustained-release 12 hr 100 mg PO TID escitalopram oxalate 5 mg tablet 20 mg PO DAILY omeprazole 20 mg capsule,delayed release(DR/EC) 20 mg PO DAILY Qty: 90 0RF mupirocin [Centany] 2 % ointment 1 applic topical BID Qty: 15 0RF multivitamin,bq-emvl-llvyqvmw Tablet 1 tablet PO DAILY levothyroxine 50 mcg tablet 50 mcg PO DAILY Qty: 90 1RF Follow-up/Referrals: Apollo Ham MD [Primary Care Provider] - Time of Disposition: 10:25
[2025-01-02 09:12] VITALS: BP 110/53; PULSE 76; RESP 32; TEMP 37.3; O2SAT 99
--- OUTSIDE RECORDS SUMMARY | 2025-01-02 09:33 | XMS_ITS | Clinical Summary ---
Author Organization [email or web address] Address [address] [place] [address] Care Team Providers Care Retail Client Solutions Consultant Name Role Phone Elio Tobar MD Primary Care Provider [phone] Source Comments [email or web address],non-owned Affiliates and Associated Physician Practices is amultiple site organization consisting of ambulatory clinics and hospital sitesin [place], [place], [place] and [place]. This disclosure is being madepursuant to the Care Everywhere program and may not contain all information available regarding this patient. Last updated [email or web address] Allergies Active Allergy Reactions Criticality Noted Date Comments Codeine 08/06/2016 Medications * This document contains information received from the source organization and may not represent a complete record from that organization. * Be aware that medications may not be up to date on this document. Alwaysverify current medications with the patient. ALBUTEROL IN Active LITHIUM PO Active levothyroxine [...] 6 hours as needed 1 Inhaler 5 6 Active predniSONE (DELTASONE) 10 MG tablet 5 tabs po x2 days, 4 tabs po x2 days, 3 tabs po x2 days, 2 tabs po x2 days, 1 tab po x2 days 30 Tab 6 Active Social History Tobacco Use Types Packs/Day Years Used Date Smoking Tobacco: Former Comments Unknown Sex and Gender Information Value Date Recorded Sex Assigned at Not on file Legal Sex Female 10:01 AM LAB TECHNICIAN Gender Identity Not on file Sexual Orientation Not on file Last Filed Vital Signs Vital Sign Reading Time Taken Comments Blood Pressure 124/78 08/06/2016 10:33 AM LAB TECHNICIAN Pulse 65 08/06/2016 10:33 AM LAB TECHNICIAN Temperature 36.8 C (98.2 F) 08/06/2016 10:33 AM LAB TECHNICIAN Respiratory Rate 16 08/06/2016 10:33 AM LAB TECHNICIAN Oxygen Saturation 96% 08/06/2016 10:48 AM LAB TECHNICIAN Inhaled Oxygen Concentration - - Weight 129.3 kg (285 lb) 08/06/2016 10:33 AM LAB TECHNICIAN Height 165.1 cm (5' 5 ) 08/06/2016 10:33 AM LAB TECHNICIAN Body Mass Index 47.43 08/06/2016 10:33 AM LAB TECHNICIAN Plan of Treatment Health Maintenance Due Date [...] VACCINE (1 of 2) 2007 COVID-19 VACCINE ( - 2023-2 5 season) 2024 DEPRESSION SCREENING [...] age to complete this topic Insurance MEDICARE MEDICARE MEDICARE Care Teams Retail Client Solutions Consultant Relationship Specialty Start Date End Date Elio Tobar MD [address] [place] [id number] PCP - General 10/23/21
--- OUTSIDE RECORDS SUMMARY | 2025-01-02 09:33 | XMS_ITS | Patient Health Record ---
Author Organization [facility] [employer] [facility] Address [address] [facility] [address] [place] [address] Care Team Providers Care Farm Operations Manager Name Role Phone Fatoumata DIEHL, Apollo Primary Care Provider UnavailJordyn Golden Unavailable [phone] Unavailable [phone] Migration, Provider Unavailable Unavailable Allergies Allergen (clinical [...] Orally Once a day for 30 day(s) CaseId:[id number];Sta tus:Approved;Review Type:Prior Auth;Coverage Start Date:11/21/2024;Cov erage End [...] Do you have a medical power of devops?: No OtherEducation: 4 Year College High number [...] Do you have a medical power of devops?: No OtherEducation: 4 Year College High number [...] Do you have a medical power of devops?: No OtherEducation: 4 Year College High number of sexual partners: No History of inconsistent/no condom use: No Marital status: Past steroid/HgH use?: No Gender Identity and LGBTQ Identity Gender identity: Identifies as Female Assigned sex at : Female Pronouns: she/her Sexual orientation: Straight or heterosexual Problems Problem Type SNOMED Code ICD Code Onset Dates Problem Status W/U Status Risk Notes Problem Bipolar disorder (13685489) Bipolar disorder, unspecified (F31.9) 4 Active confirmed Problem Generalized anxiety disorder (32619555) Generalized anxiety disorder (F41.1) 4 Active confirmed Problem Primary insomnia (4078223) Primary insomnia (F51.01) 4 Active confirmed Problem Insomnia disorder related to another mental disorder (57880655) Insomnia due to other mental disorder (F51.05) Active confirmed Problem Bipolar I disorder (580092936) Bipolar I disorder (F31.9) Active confirmed Vital Signs Heart Rate 62 /min 12/21/2024 Height-cm 165.10 cm 12/21/2024 Blood pressure diastolic 67 mm Hg 12/21/2024 Weight-kg 95.26 kg 12/21/2024 Height 65.00 in 12/21/2024 Blood pressure systolic 106 mm Hg 12/21/2024 Weight 210 lbs 12/21/2024 BMI 34.94 kg/m2 12/21/2024 Encounters Encounter Location Date Provider Diagnosis [facility], [facility] [address] [place] [address] 02/06/2024 Provider Migration [facility], [facility] [address] [place] [address] 02/07/2024 Provider Migration [facility], [facility] [address] [place] [address] 03/28/2024 Alyssa Domingo Generalized anxiety disorder F41.1 and Bipolar disorder, unspecified F31.9 [facility], [facility] [address] [place] [address] 03/28/2024 Alyssa Domingo Bipolar disorder, unspecified F31.9 [facility], [facility] [address] [place] [address] 03/28/[address] Bipolar disorder, unspecified F31.9 [facility], [facility] [address] [place] [address] 05/11/2024 Alyssa Landiszalfonsok [facility], [facility] [address] [place] [address] 07/20/[address] Bipolar I disorder F31.9 [facility], [facility] [address] [place] [address] 07/14/[address] Bipolar I disorder F31.9 [facility], [facility] [address] [place] [address] 07/19/2024 Alyssa Santiagooszalfonsok [facility], [facility] [address] [place] [address] 07/22/2024 Alyssa Benitezk [facility], [facility] [address] [place] [address] 10/12/2024 Jordyn Luis Bipolar I disorder F31.9 [facility], [facility] [address] [place] [address] 10/20/2024 Jordyn Luis Bipolar I disorder F31.9 [facility], [facility] [address] [place] [address] 11/23/2024 Jordyn Luis Bipolar I disorder F31.9 [facility], [facility] [address] [place] [address] 11/24/2024 Jordyn Luis [facility], [facility] [address] [place] [address] 11/25/2024 Jordyn Luis [facility], [facility] [address] [place] [address] 11/25/2024 [facility] [address] [place] [address] 11/26/2024 Jordyn Luis [facility], [facility] [address] [place] [address] 11/28/2024 Jordyn Luis [facility], [facility] [address] [place] [address] 11/30/2024 Jordyn Luis [facility], [facility] [address] [place] [address] 12/12/2024 [facility], [facility] [address] [place] [address] 02/23/2024 Alyssa Domingo Bipolar disorder, unspecified F31.9 ; Generalized anxiety disorder F41.1 and Primary insomnia F51.01 [facility], [facility] [address] [place] [address] 03/29/2024 Alyssa Domingo Bipolar I disorder F31.9 ; Generalized anxiety disorder F41.1 and Primary insomnia F51.01 [facility], [facility] [address] [place] [address] 07/04/2024 Alyssa Santiagooszalfonsok Bipolar I disorder F31.9 ; Generalized anxiety disorder F41.1 and Primary insomnia F51.01 [facility], [facility] [address] [place] [address] 12/21/2024 Jordyn Luis Encounter for screening for depression Z13.31 ; Encounter for screening for cardiovascular disorders Z13.6 ; Insomnia due to other mental disorder F51.05 ; Primary insomnia F51.01 ; Bipolar I disorder F31.9 and Generalized anxiety disorder F41.1 [facility] [employer] [facility] [address] [place] [address] 10/04/2024 Jordyn Luis [facility] [address] [place] [address] 10/24/2024 Jordyn Luis [facility] [address] [facility] [address] [place] [address] 10/26/2024 Jordyn Luis Bipolar I disorder F31.9 ; Generalized anxiety disorder F41.1 and Primary insomnia F51.01 [facility] [address] [place] [address] 11/23/2024 Jordyn Luis Bipolar I disorder F31.9 ; Generalized anxiety disorder F41.1 and Primary insomnia F51.01 [facility] [address] [facility] [address] [place] [address] 08/24/2024 Jordyn Luis Bipolar I disorder F31.9 ; Generalized anxiety disorder F41.1 and Primary insomnia F51.01 Assessments Encounter Date Diagnosis (ICD Code) Assessment [...] 07/20/2024 Bipolar I disorder (ICD-10 - F31.9) 10/12/2024 Bipolar I disorder (ICD-10 - F31.9) 11/23/2024 Bipolar I disorder (ICD-10 - F31.9) 03/28/2024 Bipolar disorder, unspecified (ICD-10 - F31.9) 03/28/2024 Bipolar disorder, unspecified (ICD-10 - F31.9) 03/29/2024 Generalized anxiety disorder (ICD-10 - F41.1) manageable meds as above 12/21/2024 Encounter for screening for depression (ICD-10 - Z13.31) 10/26/2024 Bipolar I disorder (ICD-10 - F31.9) [...] increased quetiapine dose and overall treatment plan 10/20/2024 Bipolar I disorder (ICD-10 - F31.9) 11/23/2024 [...] - Assess anxiety symptoms at follow-up appointment 10/26/2024 Generalized anxiety disorder (ICD-10 - F41.1) [...] to assess mood, sooner if concerns arise 07/04/2024 Bipolar I disorder (ICD-10 - F31.9) [...] seroquel daytime to sleep when sx 02/23/2024 Bipolar disorder, unspecified (ICD-10 - F31.9) [...] F51.01) treat mood practice good sleep hygeine 07/04/2024 Generalized anxiety disorder (ICD-10 - F41.1) manageable meds as above 10/26/2024 Primary insomnia (ICD-10 - F51.01) Bipolar [...] quetiapine dose and overall treatment plan 08/24/2024 Generalized anxiety disorder (ICD-10 - F41.1) [...] to assess mood, sooner if concerns arise 11/23/2024 Generalized anxiety disorder (ICD-10 - F41.1) [...] - Assess anxiety symptoms at follow-up appointment 03/29/2024 Primary insomnia (ICD-10 - F51.01) has avail OTC melatonin, recommend 3-5mg qhs prn, no more than 10mg practice good sleep hygeine 03/28/2024 Generalized anxiety disorder (ICD-10 - F41.1) Electronic Prior Authorization was requested for Escitalopram Oxalate 5 MG Tablet. Provider can order medication once approval received. 12/21/2024 Encounter for screening for cardiovascular disorders (ICD-10 - Z13.6) 12/21/2024 Insomnia due to other mental disorder (ICD-10 - F51.05) 03/28/2024 Bipolar disorder, unspecified (ICD-10 - F31.9) 11/23/2024 Primary insomnia (ICD-10 - F51.01) Medardo [...] to assess mood, sooner if concerns arise 07/04/2024 Primary insomnia (ICD-10 - F51.01) has avail OTC melatonin, recommend 3-5mg qhs prn, no more than 10mg practice good sleep hygeine 12/21/2024 Primary insomnia (ICD-10 - F51.01) 12/21/2024 Bipolar I disorder (ICD-10 - F31.9) Electronic Prior Authorization was requested for Caplyta 42 MG Capsule. Provider can order medication once approval received. 12/21/2024 Generalized anxiety disorder (ICD-10 - F41.1) 07/04/2024 Other 08/24/2024 Other continue wellbutrin 100 [...] assess mood, sooner if concerns arise 12/21/2024 Ira Nelson is a patient with [...] future medication errors - Coordinate care with payable manager regarding use of ibuprofen despite kidney issues - Monitor cholesterol and blood glucose levels Plan Of Treatment Next Appt Details Provider Name:Jordyn Pillai jaspreet, 01/16/2025 02:45:00 PM, [address] [facility] [address] [facility] [address], [place], [address], Insurance Providers Payer Name Payer Address Payer Phone Subscriber Number Group Number Insured Name Patient Relationship to Insured Coverage Start Date Coverage End Date [place] [address] [place] [phone] [id number] MEDARDO NELSON Self - patient is the insured For Life - Medicare Supplement [address] [place] [address] [id number] MEDARDO NELSON Self - patient is the insured Medical (General) History Medical History History ICD Code Problems: Acquired hypothyroidism Obesity Obstructive sleep apnea syndrome Primary insomnia Past Psychiatric History: An xiety Disorder,Major Depressive Episode,Bipolar Disorder undefined chronic fatigue syndrome Surgical History Surgery Date(Month/Year) Other Any surgical history Hysterectomy (67703) 09/21/2000 Tonsilectomy/adenoids 09/21/2010 Other 09/28/2017 Any surgical history 09/30/2018 Bariatric operative procedure ([id number] ) 10/01/2018 Any surgical history 2001
--- OUTSIDE RECORDS SUMMARY | 2025-01-02 09:34 | XMS_ITS ---
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 Vital Signs Blood pressure systolic 106 mm Hg 12/22/19 25 Blood pressure diastolic 67 mm Hg 025 Heart Rate 62 /min 12/21/2024 Height 65.00 in 12/21/2024 Weight 210 lbs 12/21/2024 BMI 34.94 kg/m2 12/21/2024 Height-cm 165.10 cm 12/21/2024 Weight-kg 95.26 kg 12/21/2024 Encounters Encounter Location Date Provider Diagnosis [facility] [employer] [address] [facility] [address] [address] 12/21/2024 Jordyn Luis Encounter for screening for [...] future medication errors - Coordinate care with professor of theater regarding use of ibuprofen despite kidney issues [...] Provider Name:Jordyn Nikki vogel, 01/16/2025 02:45:00 PM, [address] [facility] [address] [facility] [address], [place], [address], Progress Notes * AIDA NELSONISDOB:1955 (69 yo F)Acc No.[id number]:12/21/2024 Patient: MEDARDO BAEZ Provider: Stas Luis :1955 A ge:69 Y S ex:Female Date:12/21/2024 Address:[address] [place], [place] [address] Pcp:Apollo Ham MD Subjective: * Chief Complaints: [...] an alternative to Seroquel. She has tried issh-nxz-gakrcmm sleep aids and Nyquil without success. She [...] is allergic to trazodone. They have tried mkhd-jfs-vjuiktj sleep aids and Nyquil without success. Belsomra [...] tool used for adult depression screening: [facility] Health Questionnaire (PHQ-9) * ROS: P erformance [...] es D o you have Power of Bridge Opener for Health or Medical? N o A [...] PLUS , Notes to Pharmacist: *Reorder from [facility] for eRx and Interaction Alerts*, Taking Synthroid [...] future medication errors - Coordinate care with professor of theater regarding use of ibuprofen despite kidney issues - Monitor cholesterol and blood glucose levels * Procedure Codes: G 8783 NORMAL BP READING DOC F/U NOT RQR, G8783 NORMAL BP READING DOC F/U NOT RQR, 53088 BEHAV ASSMT W/SCORE & DOCD/STAND INSTRUMENT, G8431 [...] NORMAL BP READING DOC F/U NOT RQR. 97869 BEHAV ASSMT W/SCORE & DOCD/STAND INSTRUMENT. G8431 CLIN DEPRESSION SCREEN DOC. G8752 MOST RECENT SYSTOLIC BP < 140MM HG. G8752 MOST RECENT SYSTOLIC BP < 140MM HG. G8754 MOST RECENT DIASTOLIC BP < 90MM HG. G8754 MOST RECENT DIASTOLIC BP < 90MM HG. * Electronic signature of Kenton Luis on 01/02/2025 at 09:33 AM CDT Sign off status: Pending * Provider: Stas Luis Date: 12/21/2024 Generated for Janis alarcon/Javi/Evelyne on: 01/02/2025 09:33 AM CDT History and Physical Notes * [...] Screening Findings: P ositve Follow-Up for Depression: [facility] treatment assessment, Patient follow-up to return when [...] awful navya ht happen: Not at all [place]-Suicide Severity Rating Scale Suicide Risk (CSRS-screener) in [...]
--- OUTSIDE RECORDS SUMMARY | 2025-01-02 09:34 | XMS_ITS | CONTINUITY OF CARE DOCUMENT ---
Author Name paula mitchell Address Unknown Organization [facility] Address [address] [place] [address] [address] [place] [address] Phone [phone] Care Team Providers Care Command And Control Specialist Name Role Phone Zaira DIEHL, Dave Unavailable FORTINO PACK MD Unavailable INSURANCE PROVIDERS Payer name Policy type / Coverage type Jackie red democrat ID FOR LIFE NADIA [id number] [place] B Medicare [id number]
--- OUTSIDE RECORDS SUMMARY | 2025-01-02 09:34 | XMS_ITS | Clinical Summary ---
Author Organization [facility] Address [facility] [place] [address] Care Team Providers Care Electrician'S Assistant Name Role Phone Elio Tobar MD Primary Care Provider [phone] Felipe Conte MD Unavailable [phone] Benoit Pond DPT Unavailable Unavailable Allergies Active Allergy Reactions Criticality Noted Date Comments Codeine Itching Low Tapentadol Itching Low 10/01/2018 Tramadol Itching Low 05/05/2018 Medications levothyroxine (SYNTHROID) 50 mcg tablet Take 88 mcg by mouth service desk technician before breakfast 8 Active folic acid 20 [...] (09/09/2018): Added automatically from request for surgery [id number] Anxiety 08/10/2018 Depression 08/10/2018 GERD (gastroesophageal reflux [...] on file 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 Gender Identity Not on file Sexual Orientation [...] Influenza Vaccine (Season Ended) 2025 Insurance MEDICARE [facility] MEDICARE [facility] CLAIMS [facility] Address: [address] [place] [address] MEDICARE Advance Directives For more information, please contact: [phone] * Full Code (Latest Code Status on File) Date Activated Date Inactivated Comments 10/01/2018 5:46 PM 10/04/2018 2:50 PM Care Teams Electrician'S Assistant Relationship Specialty Start Date End Date Elio Tobar MD [address] [place] [address] PCP - General Internal Medicine 05/05/18 Felipe Conte MD [phone] [place] [address] Referring Physician General Surgery 05/05/18 Benoit Pond DPT [address] [place] [address] Physical Therapist Physical Therapy 05/26/18
--- OUTSIDE RECORDS SUMMARY | 2025-01-02 09:34 | XMS_ITS | Referral Summary ---
Author Organization [facility] Address [facility] [place] [address] Care Team Providers Care Second Language Tutor Name Role Phone Elio Tobar MD Primary Care Provider [phone] Felipe Conte MD Unavailable [phone] Benoit Pond DPT Unavailable Unavailable Allergies Active Allergy Reactions Criticality Noted Date Comments Codeine Itching Low Tapentadol Itching Low 10/01/2018 Tramadol Itching Low 05/05/2018 Medications levothyroxine (SYNTHROID) 50 mcg tablet Take 88 mcg by mouth hop grower before breakfast 8 Active folic acid 20 [...] (09/09/2018): Added automatically from request for surgery [id number] Anxiety 08/10/2018 Depression 08/10/2018 GERD (gastroesophageal reflux [...] on file 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 Gender Identity Not on file Sexual Orientation [...] of Treatment Not on file Insurance MEDICARE [facility] CLAIMS [facility] Address: [address] [place] [address] MEDICARE [facility] MEDICARE Advance Directives For more information, please contact: [phone] * Full Code (Latest Code Status on File) Date Activated Date Inactivated Comments 10/01/2018 5:46 PM 10/04/2018 2:50 PM Care Teams Second Language Tutor Relationship Specialty Start Date End Date Elio Tobar MD [address] [place] [address] PCP - General Internal Medicine 05/05/18 Felipe Conte MD [address] [phone] [place] [address] Referring Physician General Surgery 05/05/18 Benoit Pond, [address] [address] [place] [address] Physical Therapist Physical Therapy 05/26/18
--- OUTSIDE RECORDS SUMMARY | 2025-01-02 09:34 | XMS_ITS | Encounter Summary ---
Author Organization [facility] Address [address] [facility] [address] [place] [address] Care Team Providers Care Rn Bariatric Name Role Phone Shruthi Haynes MD Primary Care Provider + Elio Tobar MD Primary Care Provider [phone] Felipe Conte MD Unavailable [phone] Benoit Pond DPT Unavailable Unavailable Encounter Details Date Type Department Care Team (Late st Contact Info) Description 10/01/2016 Orders Only [facility] ProviderUlises MD [address] [place] [address] Social History Tobacco Use Types Packs/Day Years Used Date Smoking Tobacco: Never Comments Unknown Sex and Gender Information Value Date Recorded Sex Assigned at Not on file 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 Gender Identity Not on file Sexual Orientation [...] on filedocumented in this encounter Care Teams Rn Bariatric Relationship Specialty Start Date End Date Shruthi Haynes MD [address] [place] [address] PCP - General 10/09/08 05/04/18 Elio Tobar MD [address] [facility] [address] [place] [address] PCP - General Internal Medicine 05/05/18 Felipe Conte MD [address] [phone] [place] [address] Referring Physician General Surgery 05/05/18 Benoit Pond, [address] [address] [place] [address] Physical Therapist Physical Therapy 05/26/18 documented as of this encounter
--- OUTSIDE RECORDS SUMMARY | 2025-01-02 09:34 | XMS_ITS | Clinical Summary ---
Author Organization [facility] Address [address] [place] [address] Care Team Providers Care Dulser Name Role Phone Elio Tobar MD Primary Care Provider [phone] Social History Tobacco Use Types Packs/Day Years [...] 2022 Dexa Scan (General) 2022 Pneumococcal Vaccine: 50+ Years (1 of 1 - PCV) 2022 [...] age to complete this topic Insurance MEDICARE [facility] Care Teams Dulser Relationship Specialty Start Date End Date Elio Tobar MD [address] [place], [place] [id number] PCP - General INTERNAL MEDICINE 06/19/21
--- OUTSIDE RECORDS SUMMARY | 2025-01-02 09:39 | XMS_ITS | CONTINUITY OF CARE DOCUMENT ---
Author Name paula mitchell Address Unknown Organization [facility] Address [address] [place] [address] [address] [place] [address] Phone [phone] Care Team Providers Care Chef Assistant Name Role Phone Zaira DIEHL, Dave Unavailable FORTINO PACK MD Unavailable [phone] INSURANCE PROVIDERS Payer name Policy type / Coverage type Jackie red democrat ID FOR LIFE NADIA [id number] [place] MEDICARE PART B Medicare [id number]
[2025-01-02 09:54] LABS: EDCOVIDSCREEN Negative (Negative); EDINFLUASCREEN Negative (Negative); EDINFLUBSCREEN Negative (Negative)
== END 2025-01-02 10:28 | disposition short-term general hospital (02) ==
PROVIDERS: Emergency Provider Nurse Practitioner Family; PCP Family Medicine
DX: R06.02 Shortness of breath (principal); R05.9 Cough, unspecified; R91.8 Other nonspecific abnormal finding of lung field; Z20.822 Contact with and (suspected) exposure to COVID-19; E03.9 Hypothyroidism, unspecified; F31.9 Bipolar disorder, unspecified; F41.8 Other specified anxiety disorders
CPT/HCPCS: 71046; 87426; 87804; 99213; G0463

== ENCOUNTER 2025-01-02 10:42 | Emergency (ER) | payer MEDICARE, OTHER, SELFPAY ==
--- NOTE | ~2025-01-02 | CT_ITS ---
EXAMINATION: CTA chest PE protocol DATE: 01/02/2025 14:06 CDT INDICATION: Shortness of breath, and elevated d-dimer TECHNIQUE: Computed tomographic angiography (CTA) of the chest was performed with 100 mL Omnipaque-35 0 intravenous contrast. The dose-length product was 767.54 mGy-cm. Maximum intensity projection 3D-re constructions of the aorta and other arteries were constructed by the technologist on a separate work station. COMPARISON: None. FINDINGS/OBSERVATIONS: PULMONARY ARTERIES: No filling defect is identified within the main or proximal pulmonary artery. The main pulmonary artery is not enlarged. THORACIC AORTA: No aneurysmal dilatation or dissection is present. The great vessels are intact LUNGS: Patchy groundglass opacification in a peribronchovascular distribution, suggesting an infectious etio logy, rather than malignancy. No discrete consolidation is present. Tree-in-bud opacification is identified, specifically within the right upper lobes. No pleural effusions are noted. MEDIASTINUM: No morphologically suspicious or pathologically enlarged lymph nodes are identified with in the mediastinum or bilateral axilla. BONES OF THE CHEST: No acute fracture. Moderate degenerative disease. No lytic or blastic lesions. Pectus excavatum is incidentally noted. HEART: The heart is of normal size, without pericardial effusion. IMPRESSION: No pulmonary embolus. No thoracic aortic dissection. Findings suggesting atypical pneumonia, as detailed above. Follow-up to resolution is recommended. Reviewed, dictated and finalized at location A.
--- NOTE | ~2025-01-02 | XR_ITS ---
Clinical Indication: Shortness of breath PA and lateral views of the chest: Comparison: 01/02/2025 Findings: The lungs are clear, without evidence of focal consolidation or pleural effusion. Cardiome diastinal silhouette is within normal limits. Bones and soft tissues are unremarkable. Impression: Normal chest. Reviewed, dictated and finalized at location . Impression: Normal chest.
[2025-01-02 11:18] VITALS: BP 116/54; PULSE 69; RESP 20; TEMP 36.8; O2SAT 100
--- NOTE | 2025-01-02 11:48 | ECG_ITS ---
Test Date: 2025-01-02 12:03:44 Measurements Intervals [place] Rate: 66 P: 48 WY: 116 QRS: 52 QRSD: 78 T: 50 QT: 387 QTc: 408 Interpretive Statements SINUS RHYTHM WITH SHORT [place] INTERVAL POSSIBLE RIGHT VENTRICULAR CONDUCTION DELAY LOW QRS VOLTAGE IN PRECORDIAL LEADS BASELINE ARTIFACT- I, II, AVR, V2-V3 BORDERLINE ECG No previous ECG available for comparison Electronically Signed On 01-02-2025 12:50:30 CDT by Sami Aguirre D.O.
--- OUTSIDE RECORDS SUMMARY | 2025-01-02 12:01 | XMS_ITS | Referral Summary ---
Author Organization [facility] Address [facility] [place] [address] Care Team Providers Care Carpenter Repairer Name Role Phone Elio Tobar MD Primary Care Provider [phone] Felipe Conte MD Unavailable [phone] Benoit Pond DPT Unavailable Unavailable Allergies Active Allergy Reactions Criticality Noted Date Comments Codeine Itching Low Tapentadol Itching Low 10/01/2018 Tramadol Itching Low 05/05/2018 Medications levothyroxine (SYNTHROID) 50 mcg tablet Take 88 mcg by mouth speech therapist early intervention before breakfast 8 Active folic acid 20 [...] (09/09/2018): Added automatically from request for surgery [id number] Anxiety 08/10/2018 Depression 08/10/2018 GERD (gastroesophageal reflux [...] on file 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 Gender Identity Not on file Sexual Orientation [...] of Treatment Not on file Insurance MEDICARE [facility] CLAIMS MEDICARE [facility] MEDICARE Advance Directives For more information, please contact: [phone] * Full Code (Latest Code Status on File) Date Activated Date Inactivated Comments 10/01/2018 5:46 PM 10/04/2018 2:50 PM Care Teams Carpenter Repairer Relationship Specialty Start Date End Date Elio Tobar MD [address] [place] [address] PCP - General Internal Medicine 05/05/18 Felipe Conte MD [address] [phone] [place] [address] Referring Physician General Surgery 05/05/18 Benoit Pond, KEITHT [address] [place] [address] Physical Therapist Physical Therapy 05/26/18
--- OUTSIDE RECORDS SUMMARY | 2025-01-02 12:01 | XMS_ITS | Clinical Summary ---
Author Organization [facility] Address [address] [place] [address] Care Team Providers Care Scanning Supervisor Name Role Phone Elio Tobar MD Primary Care Provider [phone] Social History Tobacco Use Types Packs/Day Years [...] age to complete this topic Insurance MEDICARE [facility] Care Teams Scanning Supervisor Relationship Specialty Start Date End Date Elio Tobar MD [address] [place], [place] [id number] PCP - General INTERNAL MEDICINE 06/19/21
--- OUTSIDE RECORDS SUMMARY | 2025-01-02 12:01 | XMS_ITS | Clinical Summary ---
Author Organization [facility] Address [address] [facility] [place] [address] Care Team Providers Care Paper Latcher Name Role Phone Elio Tobar MD Primary Care Provider [phone] Source Comments [facility] [employer],non-owned Affiliates and Associated Physician Practices is amultiple site organization consisting of ambulatory clinics and hospital sitesin [place], [place], [place] and [place]. This disclosure is being madepursuant to the Care Everywhere program and may not contain all information available regarding this patient. 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 Gender Identity Not on file Sexual Orientation Not on file Last Filed Vital Signs Vital Sign Reading Time Taken Comments Blood Pressure 124/78 08/06/2016 10:33 AM OIL WELL DIRECTIONAL SURVEYOR Pulse 65 08/06/2016 10:33 AM OIL WELL DIRECTIONAL SURVEYOR Temperature 36.8 C (98.2 F) 08/06/2016 10:33 AM OIL WELL DIRECTIONAL SURVEYOR Respiratory Rate 16 08/06/2016 10:33 AM OIL WELL DIRECTIONAL SURVEYOR Oxygen Saturation 96% 08/06/2016 10:48 AM OIL WELL DIRECTIONAL SURVEYOR Inhaled Oxygen Concentration - - Weight 129.3 kg (285 lb) 08/06/2016 10:33 AM OIL WELL DIRECTIONAL SURVEYOR Height 165.1 cm (5' 5 ) 08/06/2016 10:33 AM OIL WELL DIRECTIONAL SURVEYOR Body Mass Index 47.43 08/06/2016 10:33 AM OIL WELL DIRECTIONAL SURVEYOR Plan of Treatment Health Maintenance Due Date [...] topic Insurance MEDICARE MEDICARE MEDICARE Care Teams Paper Latcher Relationship Specialty Start Date End Date Elio Tobar MD [address] [place] [id number] PCP - General 10/23/21
--- OUTSIDE RECORDS SUMMARY | 2025-01-02 12:01 | XMS_ITS | CONTINUITY OF CARE DOCUMENT ---
Author Name paula mitchell Address Unknown Organization [facility] Address [address] [place] [address] [address] [place] [address] Phone [phone] Care Team Providers Care Animal Trainer Supervisor Name Role Phone Zaira DIEHL, Dave Unavailable FORTINO PACK MD Unavailable INSURANCE PROVIDERS Payer name Policy type / Coverage type Jackie red libertarian ID FOR LIFE NADIA [id number] [place] MEDICARE PART B Medicare [id number]
--- OUTSIDE RECORDS SUMMARY | 2025-01-02 12:01 | XMS_ITS | Encounter Summary ---
Author Organization [facility] Address [address] [place] [address] Care Team Providers Care Integration Project Manager Name Role Phone Shruthi Haynes MD Primary Care Provider + Elio Tobar MD Primary Care Provider [phone] Felipe Conte MD Unavailable [phone] Benoit Pond DPT Unavailable Unavailable Encounter Details Date Type Department Care Team (Late st Contact Info) Description 10/01/2016 Orders Only [facility] ProviderUlises MD [address] [place] [address] Social History Tobacco Use Types Packs/Day Years Used Date Smoking Tobacco: Never Comments Unknown Sex and Gender Information Value Date Recorded Sex Assigned at Not on file 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 Gender Identity Not on file Sexual Orientation [...] on filedocumented in this encounter Care Teams Integration Project Manager Relationship Specialty Start Date End Date Shruthi Haynes MD [address] [place] [address] PCP - General 10/09/08 05/04/18 Elio Tobar MD [address] [facility] [address] [place] [address] PCP - General Internal Medicine 05/05/18 Felipe Conte MD [address] [phone] [place] [address] Referring Physician General Surgery 05/05/18 Benoit Pond, [address] [address] [place] [address] Physical Therapist Physical Therapy 05/26/18 documented as of this encounter
--- OUTSIDE RECORDS SUMMARY | 2025-01-02 12:01 | XMS_ITS | Clinical Summary ---
Author Organization [facility] Address [facility] [place] [address] Care Team Providers Care Remedial Project Manager Name Role Phone Elio Tobar MD Primary Care Provider [phone] Felipe Conte MD Unavailable [phone] Benoit Pond DPT Unavailable Unavailable Allergies Active Allergy Reactions Criticality Noted Date Comments Codeine Itching Low Tapentadol Itching Low 10/01/2018 Tramadol Itching Low 05/05/2018 Medications levothyroxine (SYNTHROID) 50 mcg tablet Take 88 mcg by mouth staff development manager before breakfast 8 Active folic acid 20 [...] (09/09/2018): Added automatically from request for surgery [id number] Anxiety 08/10/2018 Depression 08/10/2018 GERD (gastroesophageal reflux [...] on file 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 Gender Identity Not on file Sexual Orientation [...] Influenza Vaccine (Season Ended) 2025 Insurance MEDICARE [facility] MEDICARE [facility] CLAIMS MEDICARE Advance Directives For more information, please contact: [phone] * Full Code (Latest Code Status on File) Date Activated Date Inactivated Comments 10/01/2018 5:46 PM 10/04/2018 2:50 PM Care Teams Remedial Project Manager Relationship Specialty Start Date End Date Elio Tobar MD [address] [place] [address] PCP - General Internal Medicine 05/05/18 Felipe Conte MD [address] [phone] [place] [address] Referring Physician General Surgery 05/05/18 Benoit Pond DPT [address] [place] [address] Physical Therapist Physical Therapy 05/26/18
[2025-01-02 12:07] VITALS: BP 122/65; PULSE 70; RESP 20; RESP 70; TEMP 37; O2SAT 97
[2025-01-02 12:13] VITALS: O2SAT 99
--- NOTE | 2025-01-02 12:14 | ED_ITS ---
HPI - SOB/Dyspnea General Chief Complaint: Shortness of Breath/Dyspnea Stated Complaint: sob, abnormal cxr Time Seen by Provider: 01/02/25 12:11 Source: patient and family Mode of arrival: ambulatory Limitations: no limitations History of Present Illness HPI Narrative: 69 years old white female history of psych disorder and acid reflux complains of nasal congestion, postnasal discharge started 4 days ago, started having severe shortness of breath last night, referred to our emergency room from urgent care with possible congestive heart failure. Patient does not smoke or drink or use drugs, does not take medicine at home except for psych disorder. She denies any fever, chills, nausea, vomiting, sick contact or chest pain. Related Data Home Medications ?Medication ?Instructions ?Recorded ?Confirmed ?Last Taken ?Type bupropion HCl 100 mg tablet,12 hr 100 mg PO TID 07/16/20 01/02/25 07/11/22 07:00 History sustained-release (Wellbutrin SR) quetiapine 100 mg tablet (Seroquel) 100 mg PO HS 09/24/20 01/02/25 07/09/22 History multivitamin,od-llar-yckzveyo 1 tablet PO DAILY 05/23/21 01/02/25 07/09/22 History escitalopram oxalate 5 mg tablet 20 mg PO DAILY 12/01/24 01/02/25 Unknown History lactobacillus combination no.9 4 4,000 mmu cells PO DAILY 12/01/24 01/02/25 Unknown History billion cell capsule (Adult 50 Plus Probiotic) lumateperone 21 mg capsule 21 mg PO DAILY 12/01/24 01/02/25 Unknown History (Caplyta) Allergies Allergy/AdvReac Type Severity Reaction Status Date / Time hydrocodone Allergy Mild Itching Verified 01/02/25 09:11 pentazocine Allergy Mild Itching Verified 01/02/25 09:11 tapentadol Allergy Mild Itching Verified 01/02/25 09:11 tramadol Allergy Mild Itching Verified 01/02/25 09:11 codeine AdvReac Mild Itching Verified 01/02/25 09:11 Review of Systems 2 Review of Systems: All systems reviewed & are unremarkable except as noted in HPI and below PMFSH Past Medical History Medical History BMI 36.0-36.9,adult Arthritis of hand, right Finger fracture, right BMI 34.0-34.9,adult Adult BMI 33.0-33.9 kg/sq m Screen for colon cancer BMI over 35 Screening for lipid disorders Weight gain following gastric bypass surgery Anxiety Depression Left knee pain Right knee pain Arthritis Hypothyroid Chronic back pain Bipolar 1 disorder Surgical History Surgical History H/O gastric bypass History of foot surgery L arch of foot cyst removal History of arthroscopy of both knees History of hysterectomy History of tonsillectomy History of 2 sections History of total knee replacement Family History Family History Sibling Family history of obesity Patient's sister is in good health Family history of malignant neoplasm of breast in first degree relative Family history of malignant neoplasm Father Family history of mental disorder Depression Hypertension Family history of elevated blood lipids Family history of alcoholism Family history of lung cancer, Onset Age: 72 Family history of coronary artery disease Family history of chronic obstructive pulmonary disease Family history of emphysema, Onset Age: 72 Family history of cardiovascular disease Family history of malignant neoplasm Mother Hypertension Patient's mother is in good health Family history of elevated blood lipids Cerebrovascular accident Family history of heart disease in male family member before age 55 Family history of chronic obstructive pulmonary disease Sibling , breast cancer 2015 Breast cancer Other Asthma Family history of allergic disorder Family history of migraine headaches Heart disease Social History Social History Smoking status: Never smoker Second hand tobacco smoke exposure: No Alcohol intake: current Alcohol use details: once or twice a year Substance use: never Substance use type: does not use Current Housing: Decline to Answer Concerned About Future Housing: Decline to Answer Difficulty Paying Gas/Electric Bills: Decline to Answer Difficulty Paying for Meds: Decline to Answer Currently Unemployed: Decline to Answer Education: Decline to Answer Difficulty w/ Childcare or Family Care: Decline to Answer Living arrangements: with family Occupation/Education: retired Additional occupation/education comments: [employer] Gender identity (if verbalized by the patient): Female Spiritual care concerns: No Exam 2 Narrative: General appearance: Well-developed, well-nourished, hyperventilating Skin: Normal color Head: Normocephalic, nontraumatic Eyes: Clear conjunctiva ENT: Oropharynx normal, ears normal, nose normal Neck: Supple, nontender Chest and respiratory: Airway patent,g, no wheezing, no rhonchi, no rales, no accessory muscle use Heart: Regular rate/rhythm Abdomen: Soft, nontender, no organomegaly, quiet bowel sounds Vascular: Normal peripheral pulses, normal capillary refill. Musculoskeletal: Normal range of motion, nontender back Neurologic: Alert and oriented ?3, BENCH CHEMIST is normal as tested, no gross motor deficit Course Vital Signs Vital signs: Vital Signs Temperature 36.8 C 01/02/25 11:18 Pulse Rate 69 01/02/25 11:18 Respiratory Rate 20 01/02/25 11:18 Blood Pressure 116/54 L 01/02/25 11:18 Pulse Oximetry 100 01/02/25 11:18 Oxygen Delivery Room Air 01/02/25 11:18 Temperature 37.0 C 01/02/25 12:07 Pulse Rate 77 01/02/25 14:24 Respiratory Rate 25 H 01/02/25 14:24 Blood Pressure 136/64 01/02/25 14:24 Pulse Oximetry 100 01/02/25 14:24 Oxygen Delivery Room Air 01/02/25 12:13 MDM - SOB/Dyspnea MDM Narrative Medical decision making narrative: Patient came with congestion and trouble breathing Vital signs unremarkable Physical examination showing anxious lady with hyperventilation otherwise within normal limit Differential diagnosis include upper respiratory viral infection, pneumonia, congestive heart failure, pulmonary embolism, anxiety related symptoms Blood workup today included CBC, CMP, bnP, troponin showed WBC 6.8, hemoglobin 10.9, D-dimer 0.49, creatinine 1.2, BnP 1460 Respiratory viral panel showed negative for COVID flu RSV. Elevated BMP could be secondary to inflammation of the lung. Patient oxygenation on room air 97%, no leg edema, no orthopnea, Chest x-ray showed normal chest CTA rule out pulmonary embolism showed Blood gas on room air showed pH 7.6, pCO2 20, PO2 76, oxygen saturation on room air 97.3. Diagnosis atypical pneumonia Discharged on amoxicillin, albuterol inhaler, tessalone and prednisone Differential Diagnosis Differential diagnosis: Likely other (As above) Medical Records Attestation: I reviewed the patient's medical records. Lab Data Attestation: I reviewed the patient's lab results. 01/02/25 11:55 01/02/25 11:55 Labs: Lab Results 01/02/25 01/02/25 01/02/25 Range/Units 11:55 11:56 13:04 WBC 6.8 (4.5-10.0) K/mm3 RBC 4.22 (4.2-5.4) M/mm3 Hgb 10.9 L (12.0-15.0) g/dL Hct 35.5 L (37.0-47.0) % MCV 84.1 (80-100) fl MCH 25.8 L (26-34) pg MCHC 30.7 L (32-36) g/dl RDW 15.4 H (11.5-14.5) % Plt Count 204 (150-375) k/mm3 MPV 11.5 H (7.4-10.4) fl Immature Gran % (Auto) 0.3 (0-0.5) % Neut % (Auto) 64.8 (45.5-73.1) % Lymph % (Auto) 21.7 (18.3-44.2) % [place] % (Auto) 12.5 H (2.6-8.5) % Eos % (Auto) 0.3 (0-4.4) % Baso % (Auto) 0.4 (0.2-1.2) % Lymph # (Auto) 1.48 (0.9-3.2) K/mm3 [place] # (Auto) 0.9 H (0.1-0.6) K/mm3 Eos # (Auto) 0.0 (0-0.3) K/mm3 Baso # (Auto) 0.0 (0.0-0.1) K/mm3 Abs Immat Gran (auto) 0.02 (0.00-0.031) K/mm3 Absolute Neuts (auto) 4.4 (1.3-6.7) K/mm3 Absolute Nucleated RBC 0.000 (0.0-0.012) K/mm3 Nucleated RBC % 0.0 (0.0-0.2) % D-Dimer 0.49 H (<0.48) ug/mL Sodium 138 (137-145) mmol/L Potassium 3.4 (3.4-5.0) mmol/L Chloride 100 (98-107) mmol/L Carbon Dioxide 26 (22-30) mmol/L Anion Gap 12 (4-12) mmol/L BUN 19 H (7-17) mg/dL Creatinine 1.23 H (0.7-1.0) mg/dL Estim Creat Clear Calc 44 ml/min Estimated GFR 44 L (59 - ) Glucose 85 (65-110) mg/dL Calcium 9.3 (8.4-10.2) mg/dL Total Bilirubin 0.6 (0.2-1.3) mg/dL AST 34 (14-36) U/L ALT 21 (6-35) U/L Alkaline Phosphatase 92 (38-126) U/L Troponin I < 0.012 (0.000-0.034) ng/mL NT-Pro-B Natriuret Pep 1460 H (19.9-100) pg/mL Total Protein 8.0 (6.3-8.2) g/dL Albumin 4.6 (3.5-5.1) g/dL Urine Color Yellow (Yellow) Urine Appearance Clear (Clear) Urine pH 6.0 (5.0-9.0) Ur Specific [place] 1.005 (1.001-1.035) Urine Protein Negative (Negative) mg/dL Urine Glucose (UA) Negative (Negative) mg/dL Urine Ketones Negative (Negative) mg/dL Ur Blood (Man) Negative (Negative) Urine Nitrate Negative (Negative) Urine Bilirubin Negative (Negative) Urine Urobilinogen 0.2 (<2.0) mg/dL Add Ur Microanalysis Reviewed Leukocyte Esterase Rfl 1+ H (Negative) MINERVA/UL Urine RBC 0-2 (0-2) /hpf Urine WBC 0-5 (0-3) /hpf Ur Squamous Epith Cells None seen (Few) /hpf Urine Bacteria None seen /hpf Urine Casts 0-2 Influenza A (RT-PCR) Negative (Negative) Influenza B (RT-PCR) Negative (Negative) RSV (RT-PCR) Negative (Negative) SARS-CoV-2 RNA (RT-PCR) Negative (Negative) ABG Data ABG results: 01/02/25 12:28 Puncture Site Right radial ABG pH 7.603 H* ABG pCO2 20.1 L* ABG pO2 76.4 L ABG PO2/FiO2 Ratio 3.64 ABG HCO3 19.4 L ABG O2 Saturation 97.3 ABG O2 Content 14.7 L ABG Base Excess -0.6 A-a Gradient 49.3 Oxyhemoglobin 96.0 Total Hemoglobin 10.8 L O2 Delivery Device Room air O2 Liters/Min Not Reportable FiO2 21 Imaging Data Radiologist's impression: Impressions Chest X-Ray 01/02/25 12:46 Impression: Normal chest. Chest CTA 01/02/25 14:06 IMPRESSION: No pulmonary embolus. No thoracic aortic dissection. Findings suggesting atypical pneumonia, as detailed above. Follow-up to resolution is recommended. ECG Data EKG #1: Attestation: I personally reviewed and interpreted this ECG as follows: ECG completion date: 01/02/25 Interpretation: Normal sinus rhythm with short MO interval at 66 beats per minute, right ventricular conduction delay, low QRS voltage in precordial leads, borderline EKG, no previous EKG available for comparison Discharge Plan Discharge Clinical Impression: Atypical pneumonia, Acute hyperventilation syndrome Patient Disposition: Home Condition: Stable Instructions: Antibiotic Form, Pneumonia (ED) Additional Instructions: Return if symptoms are worsening , call your family physician for appointment, take Tylenol as as needed for aches and pain, continue home medications. Patient Language: Nigerien Prescriptions: New amoxicillin 500 mg capsule 1,000 mg PO Q8H Qty: 21 0RF prednisone 20 mg tablet 40 mg PO DAILY 5 Days Qty: 10 0RF albuterol sulfate 90 mcg/actuation HFA aerosol inhaler 2 puff inhalation QID PRN (Reason: shortness of breath or wheezing) Qty: 8.5 0RF benzonatate 200 mg capsule 200 mg PO TID Qty: 30 0RF No Action quetiapine [Seroquel] 100 mg tablet 100 mg PO HS Adult 50 Plus Probiotic 4 billion cell capsule 4,000 mmu cells PO DAILY Rx Instructions: administer with a meal Caplyta 21 mg capsule 21 mg PO DAILY bupropion HCl [Wellbutrin SR] 100 mg tablet sustained-release 12 hr 100 mg PO TID escitalopram oxalate 5 mg tablet 20 mg PO DAILY omeprazole 20 mg capsule,delayed release(DR/EC) 20 mg PO DAILY Qty: 90 0RF mupirocin [Centany] 2 % ointment 1 applic topical BID Qty: 15 0RF multivitamin,cj-lbkp-xunjigno Tablet 1 tablet PO DAILY levothyroxine 50 mcg tablet 50 mcg PO DAILY Qty: 90 1RF Follow-up/Referrals: Apollo Ham MD [Primary Care Provider] -
[2025-01-02 12:16] VITALS: BP 125/61; O2SAT 100
[2025-01-02 12:30] LABS: Basophils Percent Auto 0.4 % (0.2-1.2); Eosinophils Percent Auto 0.3 % (0-4.4); Hematocrit 35.5 % (37.0-47.0); Hemoglobin 10.9 g/dL (12.0-15.0); Immature Granulocyte Absolute 0.02 K/mm3 (0.00-0.031); Immature Granulocyte Percent A 0.3 % (0-0.5); Lymphocytes Absolute Auto 1.48 K/mm3 (0.9-3.2); Lymphocytes Percent Auto 21.7 % (18.3-44.2); Mean Corpuscular HGB Conc 30.7 g/dl (32-36); Mean Corpuscular Hemoglobin 25.8 pg (26-34); Mean Corpuscular Volume 84.1 fl (80-100); Mean Platelet Volume 11.5 fl (7.4-10.4); Monocytes Absolute Auto 0.9 K/mm3 (0.1-0.6); Monocytes Percent Auto 12.5 % (2.6-8.5); Neutrophils Absolute Auto 4.4 K/mm3 (1.3-6.7); Neutrophils Percent Auto 64.8 % (45.5-73.1); Platelet Count Result 204 k/mm3 (150-375); Red Blood Count 4.22 M/mm3 (4.2-5.4); Red Cell Distribution Width 15.4 % (11.5-14.5); White Blood Count 6.8 K/mm3 (4.5-10.0)
[2025-01-02 12:34] LABS: Alveolar/Arterial O2 Gradient 49.3 mmHg; Base Excess ABG -0.6 mEq/l (+/-2.0); Fractional Inspired Oxygen 21 %; HCO3 ABG 19.4 mEq/l (22.0-26.0); Oxygen Content ABG 14.7 %vol (16.0-22.0); Oxygen Saturation ABG 97.3 % (95.0-100.0); PO2 ABG 76.4 mmHg (80.0-100.0); PO2 FiO2 Ratio Arterial Blood 3.64 %; Total Hemoglobin 10.8 g/dL (12.0-18.0); pH ABG 7.603 (7.350-7.450)
[2025-01-02 12:35] LABS: Device ROOM AIR; PCO2 ABG 20.1 mmHg (35.0-45.0); Site Drawn RIGHT RADIAL
[2025-01-02 12:41] LABS: Alanine Aminotransferase 21 U/L (6-35); Albumin Level 4.6 g/dL (3.5-5.1); Alkaline Phosphatase 92 U/L (38-126); Anion Gap 12 mmol/L (4-12); Aspartate Amino Transferase 34 U/L (14-36); Bilirubin,Total 0.6 mg/dL (0.2-1.3); Blood Urea Nitrogen 19 mg/dL (7-17); Calcium 9.3 mg/dL (8.4-10.2); Carbon Dioxide 26 mmol/L (22-30); Chloride 100 mmol/L (98-107); Estimated CRCL calculation 44 ml/min; Estimated Glomerular Filt Rate 44; Glucose 85 mg/dL (65-110); Potassium 3.4 mmol/L (3.4-5.0); Sodium 138 mmol/L (137-145)
[2025-01-02 12:50] LABS: Add Urine Microscopic? YES; Appearance Urine Clear (Clear); Bacteria Urine None Seen /hpf; Bilirubin Urine Negative (Negative); Blood Urine Negative (Negative); Color Urine Yellow (Yellow); Glucose Urine UA Negative (Negative); Ketones Urine Negative (Negative); Leukocyte Esterase Ur 1+ LEU/UL (Negative); Need Manual Microscopic Reviewed; Nitrate Urine Negative (Negative); Non Pathogenic Casts 0-2; Protein Urine Negative (Negative); RBC Urine 0-2 /hpf (0-2); Specific Grav Ur 1.005 (1.001-1.035); Squamous Epithelial Cell Urine None Seen /hpf (Few); Urobilinogen Urine 0.2 mg/dL (<2.0); WBC Urine 0-5 /hpf (0-3)
[2025-01-02 13:03] LABS: Influenza A QL RT-PCR Negative (Negative); Influenza B QL RT-PCR Negative (Negative); RSV RNA, RT-PCR Negative (Negative); SARS-CoV-2 RNA PCR Negative (Negative)
[2025-01-02 13:30] LABS: NT Pro B Type Natriuretic Pept 1460 pg/mL (19.9-100)
[2025-01-02 13:33] LABS: Troponin I < 0.012 ng/mL (0.000-0.034)
[2025-01-02 13:35] LABS: D Dimer 0.49 ug/mL (<0.48)
--- OUTSIDE RECORDS SUMMARY | 2025-01-02 13:35 | XMS_ITS | Clinical Summary ---
Author Organization [facility] Address [address] [place] [address] Care Team Providers Care Claims Clerk Name Role Phone Elio Tobar MD Primary Care Provider Social History Tobacco Use Types Packs/Day Years [...] [facility] Care Teams Claims Clerk Relationship Specialty Start Date End Date Elio Tobar MD [address] [place], [place] [id number] PCP - General INTERNAL MEDICINE 06/19/21
--- OUTSIDE RECORDS SUMMARY | 2025-01-02 13:35 | XMS_ITS | Referral Summary ---
Author Organization [facility] Address [facility] [place] [address] Care Team Providers Care Job Boss Name Role Phone Elio Tobar MD Primary Care Provider [phone] Felipe Conte MD Unavailable [phone] Benoit Pond DPT Unavailable Unavailable Allergies Active Allergy Reactions Criticality Noted Date Comments Codeine Itching Low Tapentadol Itching Low 10/01/2018 Tramadol Itching Low 05/05/2018 Medications levothyroxine (SYNTHROID) 50 mcg tablet Take 88 mcg by mouth early childhood before breakfast 8 Active folic acid 20 [...] (09/09/2018): Added automatically from request for surgery [id number] Anxiety 08/10/2018 Depression 08/10/2018 GERD (gastroesophageal reflux [...] on file 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 Gender Identity Not on file Sexual Orientation [...] of Treatment Not on file Insurance MEDICARE [facility] CLAIMS MEDICARE [facility] MEDICARE Advance Directives For more information, please contact: [phone] * Full Code (Latest Code Status on File) Date Activated Date Inactivated Comments 10/01/2018 5:46 PM 10/04/2018 2:50 PM Care Teams Job Boss Relationship Specialty Start Date End Date Elio Tobar MD [address] [place] [address] PCP - General Internal Medicine 05/05/18 Felipe Conte MD [address] [phone] [place] [address] Referring Physician General Surgery 05/05/18 Benoit Pond, KEITHT [address] [place] [address] Physical Therapist Physical Therapy 05/26/18
--- OUTSIDE RECORDS SUMMARY | 2025-01-02 13:35 | XMS_ITS | Clinical Summary ---
Author Organization [facility] [employer] Address [address] [facility] [place] [address] Care Team Providers Care Full Stack Python Developer Name Role Phone Elio Tobar MD Primary Care Provider [phone] Source Comments [facility],non-owned Affiliates and Associated Physician Practices is amultiple site organization consisting of ambulatory clinics and hospital sitesin [place], [place], [place] and [place]. This disclosure is being madepursuant to the Care Everywhere program and may not contain all information available regarding this patient. 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 Gender Identity Not on file Sexual Orientation Not on file Last Filed Vital Signs Vital Sign Reading Time Taken Comments Blood Pressure 124/78 08/06/2016 10:33 AM TRUCK BENCH MECHANIC Pulse 65 08/06/2016 10:33 AM TRUCK BENCH MECHANIC Temperature 36.8 C (98.2 F) 08/06/2016 10:33 AM TRUCK BENCH MECHANIC Respiratory Rate 16 08/06/2016 10:33 AM TRUCK BENCH MECHANIC Oxygen Saturation 96% 08/06/2016 10:48 AM TRUCK BENCH MECHANIC Inhaled Oxygen Concentration - - Weight 129.3 kg (285 lb) 08/06/2016 10:33 AM TRUCK BENCH MECHANIC Height 165.1 cm (5' 5 ) 08/06/2016 10:33 AM TRUCK BENCH MECHANIC Body Mass Index 47.43 08/06/2016 10:33 AM TRUCK BENCH MECHANIC Plan of Treatment Health Maintenance Due Date [...] topic Insurance MEDICARE MEDICARE MEDICARE Care Teams Full Stack Python Developer Relationship Specialty Start Date End Date Elio Tobar MD [address] [place] [address] PCP - General 10/23/21
--- OUTSIDE RECORDS SUMMARY | 2025-01-02 13:35 | XMS_ITS | Encounter Summary ---
Author Organization [facility] Address [address] [place] [address] Care Team Providers Care Developer Analyst Name Role Phone Shruthi Haynes MD Primary Care Provider + Elio Tobar MD Primary Care Provider [phone] Felipe Conte MD Unavailable [phone] Benoit Pond DPT Unavailable Unavailable Encounter Details Date Type Department Care Team (Late st Contact Info) Description 10/01/2016 Orders Only [facility] ProviderUlises MD [address] [place] [address] Social History Tobacco Use Types Packs/Day Years Used Date Smoking Tobacco: Never Comments Unknown Sex and Gender Information Value Date Recorded Sex Assigned at Not on file 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 Gender Identity Not on file Sexual Orientation [...] on filedocumented in this encounter Care Teams Developer Analyst Relationship Specialty Start Date End Date Shruthi Haynes MD [address] [place] [address] PCP - General 10/09/08 05/04/18 Elio Tobar MD [address] [facility] [address] [place] [address] PCP - General Internal Medicine 05/05/18 Felipe Conte MD [address] [phone] [place] [address] Referring Physician General Surgery 05/05/18 Benoit Pond, [address] [address] [place] [address] Physical Therapist Physical Therapy 05/26/18 documented as of this encounter
--- OUTSIDE RECORDS SUMMARY | 2025-01-02 13:35 | XMS_ITS | CONTINUITY OF CARE DOCUMENT ---
Author Name paula mitchell Address Unknown Organization [facility] Address [address] [place] [address] [address] [place] [address] Phone [phone] Care Team Providers Care Pantograph Watcher Name Role Phone Zaira DIEHL, Dave Unavailable FORTINO PACK MD Unavailable INSURANCE PROVIDERS Payer name Policy type / Coverage type Jackie red libertarian ID FOR LIFE NADIA [id number] [place] MEDICARE PART B Medicare [id number]
--- OUTSIDE RECORDS SUMMARY | 2025-01-02 13:35 | XMS_ITS | Clinical Summary ---
Author Organization [facility] Address [facility] [place] [address] Care Team Providers Care Field Radio Operator Name Role Phone Elio Tobar MD Primary Care Provider [phone] Felipe Conte MD Unavailable [phone] Benoit Pond DPT Unavailable Unavailable Allergies Active Allergy Reactions Criticality Noted Date Comments Codeine Itching Low Tapentadol Itching Low 10/01/2018 Tramadol Itching Low 05/05/2018 Medications levothyroxine (SYNTHROID) 50 mcg tablet Take 88 mcg by mouth hair cutter before breakfast 8 Active folic acid 20 [...] (09/09/2018): Added automatically from request for surgery [id number] Anxiety 08/10/2018 Depression 08/10/2018 GERD (gastroesophageal reflux [...] on file 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 Gender Identity Not on file Sexual Orientation [...] Influenza Vaccine (Season Ended) 2025 Insurance MEDICARE [facility] MEDICARE [facility] CLAIMS MEDICARE Advance Directives For more information, please contact: [phone] * Full Code (Latest Code Status on File) Date Activated Date Inactivated Comments 10/01/2018 5:46 PM 10/04/2018 2:50 PM Care Teams Field Radio Operator Relationship Specialty Start Date End Date Elio Tobar MD [address] [place] [address] PCP - General Internal Medicine 05/05/18 Felipe Conte MD [address] [phone] [place] [address] Referring Physician General Surgery 05/05/18 Benoit Pond DPT [address] [place] [address] Physical Therapist Physical Therapy 05/26/18
[2025-01-02 14:21] VITALS: BP 136/64; O2SAT 100
[2025-01-02 14:24] VITALS: BP 136/64; PULSE 77; RESP 25; O2SAT 100
== END 2025-01-02 15:07 | disposition home or self-care (01) ==
PROVIDERS: Emergency Medicine; Emergency Provider Emergency Medicine; PCP Family Medicine
DX: J18.9 Pneumonia, unspecified organism (principal); F45.8 Other somatoform disorders; Z20.822 Contact with and (suspected) exposure to COVID-19; E03.9 Hypothyroidism, unspecified; M19.041 Primary osteoarthritis, right hand; F41.9 Anxiety disorder, unspecified; F31.9 Bipolar disorder, unspecified; Z98.84 Bariatric surgery status; Z96.659 Presence of unspecified artificial knee joint; Z90.710 Acquired absence of both cervix and uterus; Z79.899 Other long term (current) drug therapy
CPT/HCPCS: 36415; 36600; 71046; 71275; 80053; 81001; 82805; 83880; 84484; 85018; 85025; 85380; 87086; 87637; 93005; 99284; Q9967

== ENCOUNTER 2025-01-16 13:52 | Outpatient (CLI) | payer MEDICARE, OTHER, SELFPAY ==
--- NOTE | ~2025-01-16 | MM_ITS ---
EXAMINATION: MM screening paty BI w urbano HISTORY: Screening mammogram, family history of breast cancer in her sister. TECHNIQUE: Craniocaudal and mediolateral oblique 3-D tomosynthesis images were obtained and synthetic 2-D images were generated. CAD analysis was submitted and interpreted. COMPARISON: 11/11/2023, 09/01/2022, 08/19/2021 BREAST PARENCHYMAL COMPOSITION:Not Dense. The breasts are almost entirely fatty FINDINGS: No suspicious mass, calcification, or architectural distortion are identified in either caro ast to suggest malignancy. There has been no suspicious interval change. IMPRESSION: No mammographic evidence of malignancy. Recommend routine screening mammography in one year. BI-RADS Category 1: Negative Reviewed, dictated and finalized at location .
== END 2025-01-16 13:53 | disposition home or self-care (01) ==
LOC: MICIMG 13:56
PROVIDERS: PCP Family Medicine; Visit Provider Family Medicine
DX: Z12.31 Encounter for screening mammogram for malignant neoplasm of breast (principal)
CPT/HCPCS: 77063; 77067

== ENCOUNTER 2025-02-07 09:59 | Outpatient (CLI) | payer MEDICARE, OTHER, SELFPAY ==
--- NOTE | ~2025-02-07 | CT_ITS ---
EXAMINATION: CT chest high resolution w con DATE: 02/07/2025 10:30 INDICATION: f/u CTA chest 01/02/25 TECHNIQUE: Computed tomography (CT) of the chest was performed with 100 mL Omnipaque-350 intravenous contrast. Additional 3D reconstructions utilizing coronal maximum intensity projection (MIP) were per formed. Automated exposure control and iterative reconstruction technique were employed. The dose-ludmila gth product was 485.00 mGy-cm. COMPARISON: 01/02/2025 FINDINGS: Mild linear atelectasis at the posterior right upper lobe along side the major fissure. The previousl y seen tree-in-bud opacities in the right upper and bilateral lower lobes have resolved. No pneumonia , pulmonary edema or pleural effusion. Heart size is normal. No pericardial effusion. Thoracic aorta is normal in caliber with no dissection. Although not performed as a dedicated pulmonary embolism pro tocol there is good contrast opacification of the pulmonary arteries demonstrating no pulmonary embol ism. A few coarse calcifications in the left thyroid lobe. No pathologically enlarged thoracic lympha denopathy. Small sliding-type hiatal hernia with postoperative change of prior Mihai-en-Y gastric bypa ss procedure. Small region of cortical scarring at the right kidney. Severe thoracic and upper lumbar spondylosis with chronic mild anterior wedging at T11 and with anterior fusion at T9-T10. IMPRESSION: 1. Interval resolution of prior right upper and bilateral lower lobe pneumonia. No acute cardiopulmon clarissa disease. Reviewed, dictated and finalized at location A. IMPRESSION: 1. Interval resolution of prior right upper and bilateral lower lobe pneumonia. No acute cardiopulmonary disease.
[2025-02-07 10:15] LABS: Estimated Glomerular Filt Rate 45
== END 2025-02-07 10:00 | disposition home or self-care (01) ==
LOC: MICIMG 10:00
PROVIDERS: PCP Family Medicine
DX: J18.9 Pneumonia, unspecified organism (principal)
CPT/HCPCS: 71260; Q9967

== ENCOUNTER 2025-04-04 11:00 | Outpatient (CLI) | payer MEDICARE, OTHER, SELFPAY ==
--- OUTSIDE RECORDS SUMMARY | 2025-04-04 11:21 | XMS_ITS | Clinical Summary ---
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 MEDICARE [employer] [facility] MEDICARE [facility] Advance Directives For more information, please contact: [phone] * Full Code (Latest Code Status on File) Date Activated Date Inactivated Comments 10/01/2018 5:46 PM 10/04/2018 2:50 PM Care Teams Merchant Police Relationship Specialty Start Date End Date Elio Tobar MD [address] [place] [address] PCP - General Internal Medicine 05/05/18 Felipe Conte MD [address] [phone] [place] [address] Referring Physician General Surgery 05/05/18 Benoit Pond DPT [address] [place] [address] Physical Therapist Physical Therapy 05/26/18
--- OUTSIDE RECORDS SUMMARY | 2025-04-04 11:21 | XMS_ITS | Clinical Summary ---
Author Organization [facility] Address [address] [address] [place] [address] Care Team Providers Care Word Processor Name Role Phone Elio Tobar MD Primary Care Provider [phone] Source Comments [facility],non-owned Affiliates and Associated Physician Practices is amultiple site organization consisting of ambulatory clinics and hospital sitesin [place], [place], [place] and [place]. This disclosure is being madepursuant to the Care Everywhere program and may not contain all information available regarding this patient. 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 Gender Identity Not on file Sexual Orientation Not on file Last Filed Vital Signs Vital Sign Reading Time Taken Comments Blood Pressure 124/78 08/06/2016 10:33 AM SLITTING AND SHIPPING SUPERVISOR Pulse 65 08/06/2016 10:33 AM SLITTING AND SHIPPING SUPERVISOR Temperature 36.8 C (98.2 F) 08/06/2016 10:33 AM SLITTING AND SHIPPING SUPERVISOR Respiratory Rate 16 08/06/2016 10:33 AM SLITTING AND SHIPPING SUPERVISOR Oxygen Saturation 96% 08/06/2016 10:48 AM SLITTING AND SHIPPING SUPERVISOR Inhaled Oxygen Concentration - - Weight 129.3 kg (285 lb) 08/06/2016 10:33 AM SLITTING AND SHIPPING SUPERVISOR Height 165.1 cm (5' 5) 08/06/2016 10:33 AM SLITTING AND SHIPPING SUPERVISOR Body Mass Index 47.43 08/06/2016 10:33 AM SLITTING AND SHIPPING SUPERVISOR Plan of Treatment Health Maintenance Due Date Last Done Comments BONE DENSITY TESTING 1957 COLOGUARD (AGES 45-75) - COL ON CA SCREENING 1957 COLON MONITORING 1957 COLONOSCOPY - COLON CA SCREENING 1957 CT COLONOGRAPHY - COLON CA SCREENING 1957 Colorectal Cancer Screening 1957 FIT - COLON CA SCREENING 1957 FLEX SIG - COLON CA SCREENING 1957 LIPID TESTING 1957 MAMMOGRAM 1957 HEPATITIS C SCREENING 05/31/1975 DTAP/TDAP/TD VACCINES (1 - Tdap) 1976 PNEUMOCOCCAL VACCINE 50+ (1 of 1 - PCV) 2007 ZOSTER VACCINE (1 of 2) 2007 COVID-19 VACCINE ( - 2023-2 5 season) 2024 DEPRESSION SCREENING 09/21/2024 INFLUENZA VACCINE (#1) 2025 Respiratory Syncytial Virus (RSV) Vaccine Pt: [...] complete this topic Insurance MEDICARE MEDICARE MEDICARE [facility] Care Teams Word Processor Relationship Specialty Start Date End Date Elio Tobar MD [address] [place] [address] PCP - General 10/23/21
--- OUTSIDE RECORDS SUMMARY | 2025-04-04 11:21 | XMS_ITS | Referral Summary ---
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 8 Active folic acid 20 [...] (09/09/2018): Added automatically from request for surgery [id number] Anxiety 08/10/2018 Depression 08/10/2018 GERD (gastroesophageal reflux [...] on file 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 Gender Identity Not on file Sexual Orientation [...] of Treatment Not on file Insurance MEDICARE [facility] MEDICARE [facility] MEDICARE [facility] Advance Directives For more information, please contact: [phone] * Full Code (Latest Code Status on File) Date Activated Date Inactivated Comments 10/01/2018 5:46 PM 10/04/2018 2:50 PM Care Teams Convenience Recycle Center Tech Relationship Specialty Start Date End Date Elio Tobar MD [address] [place] [address] PCP - General Internal Medicine 05/05/18 Felipe Conte MD [address] [phone] [place] [address] Referring Physician General Surgery 05/05/18 Benoit Pond, [place] [address] [place] [address] Physical Therapist Physical Therapy 05/26/18
--- OUTSIDE RECORDS SUMMARY | 2025-04-04 11:21 | XMS_ITS | Continuity of Care Document ---
Author Name [facility] Organization [facility] Care Team Providers Care Window Shade Installer Name Role Phone [facility] Unavailable Unavailable Medications Combined list of outpatient medications from Department of Defense and Veterans Affairs facilities.Medications provided include 1) outpatient medications from the last 15 months, and 2) patient-reported medications. Medication Details Route Status Patient Instructions Prescription Expires Prescription Number Last Dispense Date Ordering Provider Order Date Order Qty Source AMOXICILLIN (AMOXICILLI N), 500 MG, TABLET, ORAL, RABBLON PHARMA L, 100 ea. BOTTLE Active [id number] 4 2023 12 Pharmac y Data Transac tion Service Facilit y BUPROPION HCL (BUPROPION HCL), 100MG, TABLET, ORAL, [employer] 100 ea. BOTTLE Active [id number] 4 2023 270 Pharmac y Data Transac tion Service Facilit y ESCITALOPRA M OXALATE (escitalopr am oxalate), 5 MG, TABLET, ORAL, [employer] 90 ea. BOTTLE Active [id number] 2023 30 Pharmac y Data Transac tion Service Facilit y ESCITALOPRA M OXALATE (ESCITALOPR AM OXALATE), 5 MG, TABLET, ORAL, EXELAN PHARMACE, 1000 ea. BOTTLE Active [id number] 4 2023 90 Pharmac y Data Transac tion Service Facilit y LEVOTHYROXI NE SODIUM (levothyrox ine sodium), 50 MCG, TABLET, ORAL, NORA MIGUEL NC, 1000 ea. BOTTLE Active [id number] 2023 90 Pharmac y Data Transac tion Service Facilit y PREDNISONE (PREDNISONE ), 10MG, TABLET, ORAL, [employer], 1000 ea. BOTTLE Active [id number] 2023 20 Pharmac y Data Transac tion Service Facilit y QUETIAPINE FUMARATE (quetiapine fumarate), 100 MG, TABLET, ORAL, [employer] 1000 ea. BOTTLE Active [id number] 4 2023 90 Pharmac y Data Transac tion Service Facilit y Allergies, Adverse Reactions, Alerts Combined list of allergies from Department of Defense and Veterans Affairs facilities. It does not include entries that were removed or entered in error. Substance Category Reaction Severity Reaction type Status Date Reported Comments Source CODEINE Drug allergy (disorder) Unknown active 10/19/2007 [facility] Amauri MCKINNEY ([facility] [place] [place] Immunizations Combined list of available immunizations from the Department of Defense and Veterans Affairs facilities. Immunization Series Date Given Administered By Site Reaction Lot Number CVX Code Drug [place] Drill Operator Status Comments Source COVID-19, mRNA, LNP-S, PF, 100 mcg or 50 mcg dose [address] [employer] ([place]) Not Given COVID-19, mRNA, LNP-S, PF, 100 mcg or 50 mcg dose DoD Social History Combined list of available smoking, tobacco, and other social history from Department of Defense and Veterans Affairs facilities. Social History Type Response Date Comment Sour e This section is an empty social history section. DoD
--- OUTSIDE RECORDS SUMMARY | 2025-04-04 11:21 | XMS_ITS | Encounter Summary ---
Author Organization [facility] Address [address] [place] [address] Care Team Providers Care Sales Operations Lead Name Role Phone Shruthi Haynes MD Primary Care Provider + Elio Tobar MD Primary Care Provider [phone] Felipe Conte MD Unavailable [phone] Benoit Pond DPT Unavailable Unavailable Encounter Details Date Type Department Care Team (Late st Contact Info) Description 10/01/2016 Orders Only [facility] ProviderUlises MD [address] [place] [address] Social History Tobacco Use Types Packs/Day Years Used Date Smoking Tobacco: Never Comments Unknown Sex and Gender Information Value Date Recorded Sex Assigned at Not on file 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 Gender Identity Not on file Sexual Orientation [...] on filedocumented in this encounter Care Teams Sales Operations Lead Relationship Specialty Start Date End Date Shruthi Haynes MD [address] [place] [address] PCP - General 10/09/08 05/04/18 Elio Tobar MD [address] [facility] [address] [place] [address] PCP - General Internal Medicine 05/05/18 Felipe Conte MD [address] [phone] [place] [address] Referring Physician General Surgery 05/05/18 Benoit Pond, [address] [address] [place] [address] Physical Therapist Physical Therapy 05/26/18 documented as of this encounter
[2025-04-04 11:46] LABS: Hematocrit 37.9 % (37.0-47.0); Hemoglobin 11.4 g/dL (12.0-15.0); Mean Corpuscular HGB Conc 30.1 g/dl (32-36); Mean Corpuscular Hemoglobin 24.9 pg (26-34); Mean Corpuscular Volume 82.9 fl (80-100); Platelet Count Result 195 k/mm3 (150-375); Red Blood Count 4.57 M/mm3 (4.2-5.4); White Blood Count 5.7 K/mm3 (4.5-10.0)
[2025-04-04 12:13] LABS: Alanine Aminotransferase 18 U/L (6-35); Albumin Level 4.3 g/dL (3.5-5.1); Alkaline Phosphatase 74 U/L (38-126); Aspartate Amino Transferase 36 U/L (14-36); Bilirubin,Total 0.5 mg/dL (0.2-1.3); Total Protein 7.1 g/dL (6.3-8.2)
[2025-04-04 12:14] LABS: Iron 65 ug/dL (37-170)
[2025-04-04 12:24] LABS: Percent Iron Saturation 14 % (20-50)
[2025-04-04 13:34] LABS: Vitamin B12 270.0 pg/mL (239-931)
== END 2025-04-04 11:01 | disposition home or self-care (01) ==
PROVIDERS: PCP Family Medicine; Visit Provider Nurse Practitioner Family
DX: N28.9 Disorder of kidney and ureter, unspecified (principal); D50.8 Other iron deficiency anemias; K91.89 Other postprocedural complications and disorders of digestive system
CPT/HCPCS: 36415; 80076; 82607; 82746; 83540; 83550; 85027

== ENCOUNTER 2025-05-25 11:04 | Outpatient (CLI) | payer MEDICARE, OTHER, SELFPAY ==
--- NOTE | ~2025-05-25 | DEXA_ITS ---
Bone Density Report Name: LORENZA JAMES Age: 69 Sex: Female Ethnicity: White Date of : 1955 Indication: postmenopausal; screening for osteoporosis; height loss; asthma or emphysema; hysterectomy; Referring Provider: DANTE RENAE Study: Bone densitometry was performed. Exam Date: May 25, 2025 Accession number: [id number] Bone Density: Region BMD T-score Z-score Classification AP Spine(L1-L4) 1.025 -0.2 1.8 Normal Femoral Neck (Left) 0.702 -1.3 0.3 Osteopenia Total Hip (Left) 0.847 -0.8 0.6 Normal Femoral Neck (Right) 0.688 -1.5 0.2 Osteopenia Total Hip (Right) 0.872 -0.6 0.8 Normal Total Hip Mean 0.860 -0.7 0.7 Normal World Health Organization criteria for BMD impression classify patients as: Normal (T-score at or above -1.0), Osteopenia (T-score between -1.0 and -2.5), or Osteoporosis (T-score at or below -2.5). 10-year Fracture Risk(1): Major Osteoporotic Fracture 8.7% Hip Fracture 1.0% Reported Risk Factors: [place] (), Neck BMD=0.688, BMI=35.1 (1) FRAX(R) Version 3.08. Fracture probability calculated for an untreated patient. Fracture probability may be lower if the patient has received treatment. Clinical Information Provided by Patient: Has used the following medications: Vitamin D, Calcium Has the following medical conditions: Asthma or Emphysema, Hysterectomy Patient maximum height was 65 Menopause Age: 42 No regular weight bearing exercise Drinks caffeinated beverages Onset of menses at age 15 Number of children 2 Impression: The patient has low bone mass, based on the Right Femoral Neck T-score. The patient has an estimated ten-year risk of hip fracture of 1% and an estimated ten-year risk of major fracture of 8.7%, based on the WHO FRAX algorithm. Discussion: BONE DENSITY IS LOW AT ONE OR MORE SKELETAL SITES. This patient's lowest T-score is low at one or more skeletal sites. It meets the World Health Organization's (WHO) criteria for ?low bone mass? (T-score between -1.0 and -2.5). The patient's 10-year risk of fracture as calculated by FRAX is less than the threshold where pharmacological therapy is recommended by the National Osteoporosis Foundation (NOF). However, all treatment decisions require clinical judgment and consideration of individual patient factors, including patient preferences, comorbidities, previous drug use, risk factors not captured in the FRAX model (e.g., frailty, falls, vitamin D deficiency, increased bone turnover, interval significant decline in bone density) and possible under or overestimation of fracture risk by FRAX. The patient should follow a healthful lifestyle (good nutrition with adequate calcium and vitamin D, and appropriate weight-bearing exercise). Follow-Up: Consider repeating this study in 2 to 3 years to reassess this patient's status, or sooner if there is some new clinical indication. Reported by: CAROLANN on 05/25/2025 11:43:00 AM. Reviewed, dictated and finalized at location A.
--- OUTSIDE RECORDS SUMMARY | 2025-05-25 11:43 | XMS_ITS | Clinical Summary ---
Author Organization [facility] Address [address] [place] [address] Care Team Providers Care Computer Patternmaker Name Role Phone Elio Tobar MD Primary Care Provider [phone] Source Comments [facility],non-owned Affiliates and Associated Physician Practices is amultiple site organization consisting of ambulatory clinics and hospital sitesin [place], [place], [place] and [place]. This disclosure is being madepursuant to the Care Everywhere program and may not contain all information available regarding this patient. 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 CONSULTANT Gender Identity Not on file Sexual Orientation Not on file Last Filed Vital Signs Vital Sign Reading Time Taken Comments Blood Pressure 124/78 08/06/2016 10:33 AM NETWORK SECURITY CONSULTANT Pulse 65 08/06/2016 10:33 AM NETWORK SECURITY CONSULTANT Temperature 36.8 C (98.2 F) 08/06/2016 10:33 AM NETWORK SECURITY CONSULTANT Respiratory Rate 16 08/06/2016 10:33 AM NETWORK SECURITY CONSULTANT Oxygen Saturation 96% 08/06/2016 10:48 AM NETWORK SECURITY CONSULTANT Inhaled Oxygen Concentration - - Weight 129.3 kg (285 lb) 08/06/2016 10:33 AM NETWORK SECURITY CONSULTANT Height 165.1 cm (5' 5) 08/06/2016 10:33 AM NETWORK SECURITY CONSULTANT Body Mass Index 47.43 08/06/2016 10:33 AM NETWORK SECURITY CONSULTANT Plan of Treatment Health Maintenance Due Date [...] 2007 ZOSTER VACCINE (1 of 2) 2007 DEPRESSION SCREENING 09/21/2024 COVID-19 VACCINE (1 - 2023-2 5 season) 2025 INFLUENZA VACCINE (#1) 2025 Respiratory Syncytial Virus [...] complete this topic Insurance MEDICARE MEDICARE MEDICARE [facility] Care Teams Computer Patternmaker Relationship Specialty Start Date End Date Elio Tobar MD [address] [place] [address] PCP - General 10/23/21
--- OUTSIDE RECORDS SUMMARY | 2025-05-25 11:43 | XMS_ITS | Encounter Summary ---
Author Organization [facility] Address [address] [place] [address] Care Team Providers Care Pipe Organ Tuner And Repairer Name Role Phone Shruthi Haynes MD Primary Care Provider + Elio Tobar MD Primary Care Provider [phone] Felipe Conte MD Unavailable [phone] Benoit Pond DPT Unavailable Unavailable Encounter Details Date Type Department Care Team (Late st Contact Info) Description 10/01/2016 Orders Only [facility] ProviderUlises MD [address] [place] [address] Social History Tobacco Use Types Packs/Day Years Used Date Smoking Tobacco: Never Comments Unknown Sex and Gender Information Value Date Recorded Sex Assigned at Not on file 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 Gender Identity Not on file Sexual Orientation [...] on filedocumented in this encounter Care Teams Pipe Organ Tuner And Repairer Relationship Specialty Start Date End Date Shruthi Haynes MD [address] [place] [address] PCP - General 10/09/08 05/04/18 Elio Tobar MD [address] [facility] [address] [place] [address] PCP - General Internal Medicine 05/05/18 Felipe Conte MD [address] [phone] [place] [address] Referring Physician General Surgery 05/05/18 Benoit Pond, [address] [address] [place] [address] Physical Therapist Physical Therapy 05/26/18 documented as of this encounter
--- OUTSIDE RECORDS SUMMARY | 2025-05-25 11:43 | XMS_ITS | Patient Health Record ---
Author Organization [facility] [employer] [facility] Address [address] [facility] [address] [place] [address] Care Team Providers Care Market Research Manager Name Role Phone Fatoumata DIEHL, [employer] Primary Care Provider Jordyn Finn Unavailable [phone] Unavailable [phone] Allergies Allergen (clinical drug ingredient) Drug/Non Drug [...] Notes Start Date End Date Status Caplyta 21 MG Capsule 1 capsule every evening Orally Once a day; Duration: 90 days decreasing dose 02/06/2025 Active Levothyroxine Sodium 50 MCG Tablet Oral 11/24/2023 Active buPROPion HCl ER (SR) 150 MG Tablet Extended Release 12 Hour 1 tablet Orally twice a day; Duration: 90 days 03/21/2025 Active MULTIVITAMIN 50 PLUS *Reorder [facility] Medispan for eRx and Interaction Alerts* 11/24/2023 Active traZODone HCl 50 MG Tablet 1-2 tablets at bedtime Orally daily; Duration: 30 days As needed 04/18/2025 Active Synthroid 50 MCG Tablet Oral 11/24/2023 Active Omeprazole 40 MG Capsule Delayed Release 1 capsule 1/2 to 1 hour before morning meal Orally Once a day Active Tylenol 325 mg CAPSULE ORAL 11/24/2023 Active Vitamin C Active Iron 325 (65 Fe) MG Tablet 1 tablet Orally daily Active Immunizations Vaccine Route Administration Date Status Commnyla Santiagoa Covid-19 Vaccine 1st dose Unknown 09/05/2021 Ad [...] History Observation Description Sex Assigned At Female Social History Miscellaneous: Social Info Question Answer Notes Advance Care Planning Are you your own decision-maker Yes Do you have Power of Attorne y for Health or Medical? No Advance Directive Refused to discuss advance car e planning Safety issues: Are there any firearms in the house? Ye s Social History Social Info Question Answer Notes Household: Marital Status: Number of Adults in household: 2 Number of Children in Household: 0 Level of Education: Finished College Household: Social Info Question Answer Notes Household Marital status: Number of adults in household: 2 Drug/Alcohol: Social Info Question Answer Notes Drugs Have you used drugs other than those for medical reasons in the past 12 months? No AUDIT-C (Standard) Did you have a drink containing alcohol in the past year? No Tobacco Use: Social Info Question Answer Notes Tobacco Control (Standard) Tobacco use: Nonsmoker Additional Details Category Social Info Options Details Drug/Alcohol: Do you drink alcohol? Occas ionally Section Notes: Social History Substance Use Do [...] Do you have a medical power of wax pumper?: No OtherEducation: 4 Year College High number [...] Do you have a medical power of wax pumper?: No OtherEducation: 4 Year College High number [...] Do you have a medical power of wax pumper?: No OtherEducation: 4 Year College High number of sexual partners: No History of inconsistent/no condom use: No Marital status: Past steroid/HgH use?: No Gender Identity and LGBTQ Identity Gender identity: Identifies as Female Assigned sex at : Female Pronouns: she/her Sexual orientation: Straight or heterosexual Problems Problem Type SNOMED Code ICD Code Onset Dates Problem Status W/U Status Risk Notes Problem Bipolar affective disorder, currently depressed, mild (244128172) Bipolar disorder, current episode depressed, mild (F31.31) Active confirmed Problem Generalized anxiety disorder (85705819) Generalized anxiety disorder (F41.1) 4 Active confirmed Problem Primary insomnia (1380698) Primary insomnia (F51.01) 4 Active confirmed Problem Bipolar I disorder (161821846) Bipolar I disorder (F31.9) Active confirmed Vital Signs Heart Rate 79 /min 04/18/2025 Height-cm 165.10 cm 04/18/2025 Blood pressure diastolic 74 mm Hg 03/21/2025 Weight-kg 90.72 kg 04/18/2025 Height 65.00 in 04/18/2025 Blood pressure systolic 114 mm Hg 03/21/2025 Weight 200 lbs 04/18/2025 BMI 33.28 kg/m2 04/18/2025 Encounters Encounter Location Date Provider Diagnosis [facility], [facility] [address] [place] [address] 07/20/[address] Bipolar I disorder F31.9 [facility], [facility] [address] [place] [address] 07/14/[address] Bipolar I disorder F31.9 [facility], [facility] [address] [place] [address] 07/19/[address] [facility], [facility] [address] [place] [address] 07/22/[address] [facility], [facility] [address] [place] [address] 10/12/2024 Jordyn Luis Bipolar I disorder F31.9 [facility], [facility] [address] [place] [address] 10/20/2024 Jordyn Luis Bipolar I disorder F31.9 [facility], [facility] [address] [place] [address] 11/23/2024 Jordyn Luis Bipolar I disorder F31.9 [facility], [facility] [address] [place] [address] 11/24/2024 Jordyn Luis [facility], [facility] [address] [place] [address] 11/25/2024 Jordyn Luis [facility], [facility] [address] [place] [address] 11/25/2024 Jordyn Luis [facility], [facility] [address] [place] [address] 11/26/2024 Jordyn Luis [facility], [facility] [address] [place] [address] 11/28/2024 Jordyn Luis [facility], [facility] [address] [place] [address] 11/30/2024 Jordyn Luis [facility], [facility] [address] [place] [address] 12/12/2024 Jordyn Luis [facility], [facility] [address] [place] [address] 01/22/2025 Jordyn Luis Generalized anxiety disorder F41.1 [facility], [facility] [address] [place] [address] 01/24/2025 Jordyn Luis Generalized anxiety disorder F41.1 [facility], [facility] [address] [place] [address] 02/04/2025 Jordyn Luis Bipolar I disorder F31.9 [facility], [facility] [address] [place] [address] 04/19/2025 Jordyn Luis [facility], [facility] [address] [place] [address] 10/04/2024 Jordyn Luis [facility], [facility] [address] [place] [address] 10/24/2024 Jordyn Luis [facility], [facility] [address] [place] [address] 10/26/2024 Jordyn Luis Bipolar I disorder F31.9 ; Generalized anxiety disorder F41.1 and Primary insomnia F51.01 [facility], [facility] [address] [place] [address] 11/23/2024 Jordyn Luis Bipolar I disorder F31.9 ; Generalized anxiety disorder F41.1 and Primary insomnia F51.01 [facility], [facility] [address] [place] [address] 12/21/2024 Jordynzachary Luis Bipolar I disorder F31.9 ; Generalized anxiety disorder F41.1 ; Primary insomnia F51.01 ; Encounter for screening for cardiovascular disorders Z13.6 and Encounter for screening for depression Z13.31 [facility], [facility] [address] [place] [address] 01/16/2025 Jordynzachary Luis Bipolar I disorder F31.9 ; Generalized anxiety disorder F41.1 ; Primary insomnia F51.01 ; Encounter for screening for depression Z13.31 and Encounter for screening for cardiovascular disorders Z13.6 [facility] [place] [address] [place] [address] 02/15/2025 Jordyn Luis Bipolar I disorder F31.9 ; Generalized anxiety disorder F41.1 ; Primary insomnia F51.01 ; Insomnia due to other mental disorder F51.05 ; Encounter for screening for cardiovascular disorders Z13.6 and Negative depression screening Z13.31 [place] [address] [place] [address] 03/21/2025 Jordyn Luis Bipolar disorder, current episode depressed, mild F31.31 ; Primary insomnia F51.01 ; Generalized anxiety disorder F41.1 ; Encounter for screening for depression Z13.31 and Encounter for screening for cardiovascular disorders Z13.6 [place] [address] [facility] [address] [place] [address] 04/18/2025 Jordyn Luis Bipolar I disorder F31.9 ; Generalized anxiety disorder F41.1 and Primary insomnia F51.01 [facility] [place] [address] [facility] [address] [place] [address] 07/04/2024 Alyssa Domingo Bipolar I disorder F31.9 ; Generalized anxiety disorder F41.1 and Primary insomnia F51.01 [place] [address] [facility] [address] [place] [address] 08/24/2024 Jordyn Luis Bipolar I disorder F31.9 ; Generalized anxiety disorder F41.1 and Primary insomnia F51.01 Assessments Encounter Date Diagnosis (ICD Code) Assessment Notes Treatment Notes Treatment Clinical Notes Section Notes 04/18/2025 Bipolar I disorder (ICD-10 - F31.9) 02/15/2025 Generalized anxiety disorder (ICD-10 - F41.1) 02/15/2025 Bipolar I disorder (ICD-10 - F31.9) 10/20/2024 Bipolar I disorder (ICD-10 - F31.9) 12/21/2024 Bipolar I disorder (ICD-10 - F31.9) Electronic Prior Authorization was requested for Caplyta 42 MG Capsule. Provider can order medication once approval received. 01/16/2025 Generalized anxiety disorder (ICD-10 - F41.1) 10/26/2024 Bipolar I disorder (ICD-10 - F31.9) [...] increased quetiapine dose and overall treatment plan 01/16/2025 Bipolar I disorder (ICD-10 - F31.9) 01/22/2025 Generalized anxiety disorder (ICD-10 - F41.1) 01/24/2025 Generalized anxiety disorder (ICD-10 - F41.1) 03/21/2025 Bipolar disorder, current episode depressed, mild (ICD-10 - F31.31) 03/21/2025 Primary insomnia (ICD-10 - F51.01) 07/04/2024 Bipolar I disorder (ICD-10 - F31.9) [...] 07/20/2024 Bipolar I disorder (ICD-10 - F31.9) 08/24/2024 Bipolar I disorder (ICD-10 - F31.9) [...] 10/12/2024 Bipolar I disorder (ICD-10 - F31.9) 10/26/2024 [...] quetiapine dose and overall treatment plan 11/23/2024 Bipolar I disorder (ICD-10 - F31.9) [...] - Assess anxiety symptoms at follow-up appointment 02/04/2025 Bipolar I disorder (ICD-10 - F31.9) 11/23/2024 Bipolar I disorder (ICD-10 - F31.9) 12/21/2024 Generalized anxiety disorder (ICD-10 - F41.1) 10/26/2024 Primary insomnia (ICD-10 - F51.01) Bipolar [...] assess mood, sooner if concerns arise 07/04/2024 Generalized anxiety disorder (ICD-10 - F41.1) manageable meds as above 04/18/2025 Generalized anxiety disorder (ICD-10 - F41.1) 03/21/2025 Generalized anxiety disorder (ICD-10 - F41.1) 11/23/2024 Generalized anxiety disorder (ICD-10 - F41.1) [...] - Assess anxiety symptoms at follow-up appointment 01/16/2025 Primary insomnia (ICD-10 - F51.01) 02/15/2025 Primary insomnia (ICD-10 - F51.01) 03/21/2025 Encounter for screening for depression (ICD-10 - Z13.31) 02/15/2025 Insomnia due to other mental disorder (ICD-10 - F51.05) 01/16/2025 Encounter for screening for depression (ICD-10 - Z13.31) 11/23/2024 Primary insomnia (ICD-10 - F51.01) Medardo [...] - Assess anxiety symptoms at follow-up appointment 04/18/2025 Primary insomnia (ICD-10 - F51.01) 07/04/2024 Primary insomnia (ICD-10 - F51.01) has avail OTC melatonin, recommend 3-5mg qhs prn, no more than 10mg practice good sleep hygeine 08/24/2024 Primary insomnia (ICD-10 - F51.01) Assessment [...] assess mood, sooner if concerns arise 12/21/2024 Primary insomnia (ICD-10 - F51.01) 12/21/2024 Encounter for screening for cardiovascular disorders (ICD-10 - Z13.6) 03/21/2025 Encounter for screening for cardiovascular disorders (ICD-10 - Z13.6) 01/16/2025 Encounter for screening for cardiovascular disorders (ICD-10 - Z13.6) 02/15/2025 Encounter for screening for cardiovascular disorders (ICD-10 - Z13.6) 02/15/2025 Negative depression screening (ICD-10 - Z13.31) 12/21/2024 Encounter for screening for depression (ICD-10 - Z13.31) 12/21/2024 Ira Nelson is a patient with [...] future medication errors - Coordinate care with sheet rock installer regarding use of ibuprofen despite kidney issues - Monitor cholesterol and blood glucose levels 04/18/2025 Other Medardo Nelson, female, presents with ongoing sleep difficulties despite improvement in mood and anxiety. She is currently on Lexapro and bupropion, and is interested in discontinuing Lexapro. Insomnia Assessment: Patient reports persistent sleep difficulties characterized by light, inconsistent sleep with multiple awakenings throughout the night. She has tried wvvh-snr-exzqhvs supplements (Natrol with magnesium glycine) and various noise therapies (brown, green, or white noise) without significant improvement. Previous trials of trazodone and Belsomra were helpful, but trazodone caused morning grogginess. Quetiapine was discontinued due to excessive sedation. Patient is motivated to improve sleep quality. Plan: - Trial of trazodone for sleep - Starting dose: 50 mg PO at bedtime - May adjust dose between 25-100 mg based on response and side effects - Patient advised to take medication early in the evening to minimize morning grogginess - Prescribe 30-day supply of trazodone 50 mg tablets - Instructions: Take 1-2 tablets (50-100 mg) at bedtime as needed for sleep - One refill provided - Continue use of sleep hygiene techniques (e.g., noise therapy) - Follow up in 6-8 weeks - Patient instructed to message if sleep difficulties persist Anxiety and Depression Assessment: Patient reports improvement in mood and anxiety symptoms with current medication regimen. She expresses interest in discontinuing Lexapro while maintaining bupropion therapy. Given the stable mood and anxiety status, a trial of Lexapro discontinuation is reasonable. Plan: - Discontinue Lexapro - Patient instructed to monitor for any worsening of mood or anxiety symptoms - Advised to resume Lexapro and contact provider if symptoms recur - Continue bupropion XL 150 mg PO twice daily (morning and afternoon) - Adjust bupropion prescription: - Cancel current 30-day supply - Prescribe 90-day supply of bupropion XL 150 mg - Continue Caplyta 21 mg daily Anemia Assessment: Patient reports recent diagnosis of anemia by primary care provider, with low hemoglobin and hematocrit levels. She was initially started on iron supplementation every other day, which was recently increased to daily dosing due to persistent anemia. Patient also notes the addition of vitamin B12 supplementation due to low-normal levels. Plan: - Continue iron supplementation as prescribed by primary care provider - Continue vitamin B12 supplementation as prescribed by primary care provider - Encourage follow-up with primary care for ongoing management of anemia 01/16/2025 Other Medardo Nelson, female patient with a history of mental health issues, presents with improved mood but experiencing side effects from Caplyta including dizziness, tremors, and daily headaches. Bipolar Disorder (presumed based on medication regimen) Assessment: Patient reports improved mood with current medication regimen, including Caplyta 42 mg, Lexapro 20 mg, and Wellbutrin (3 times daily). No current anxiety concerns or suicidal ideation. However, patient is experiencing side effects from Caplyta, including dizziness, tremors, and daily headaches, primarily in the evenings. These side effects are impacting daily activities such as threading a needle and using utensils. Patient is using govf-ncg-srckvnu pain relievers (Tylenol and Naprosyn) daily for headache management. Plan: - Continue Caplyta 42 mg PO at night - Continue Lexapro 20 mg PO daily - Continue Wellbutrin (dose not specified) 3 times daily - Monitor side effects (dizziness, tremors, headaches) for potential improvement over time - Follow up in 4-6 weeks, or sooner if headaches worsen or do not improve - Patient to contact clinic if side effects become intolerable or worsen Insomnia Assessment: Patient reports generally good sleep but occasionally requires quetiapine for sleep initiation. Currently using wybe-lfn-ozeohiw melatonin gummies as a sleep aid. Reports experiencing vivid, memorable dreams. Plan: - Continue as-needed use of quetiapine 25 mg (half of 50 mg tablet) PO at bedtime for insomnia - Patient may continue use of epnq-orr-mijfjmg melatonin gummies as preferred sleep aid - Monitor for morning grogginess associated with quetiapine use Recent Pneumonia Assessment: Patient reports recent pneumonia, currently near completion of antibiotic course. Follow-up with primary care physician scheduled in two weeks. Plan: - Complete antibiotic course as prescribed - Attend scheduled follow-up with primary care physician in two weeks 08/24/2024 Other continue wellbutrin 100 mg TID, [...] to assess mood, sooner if concerns arise 02/15/2025 Other Medardo Nelson, female, with history of bipolar disorder, anxiety, and insomnia, presents with persistent side effects from Caplyta including dizziness, headaches, and new onset urinary incontinence despite recent dose reduction. Bipolar Disorder with Anxiety Assessment: Patient reports stable mood with no current depressive symptoms, maulik, or mood swings. Anxiety levels are described as mild and manageable without panic attacks. Recent medication changes include Caplyta dose reduction to 21 mg for approximately 2 weeks and Lexapro increase about 2 months ago. Despite these adjustments, patient continues to experience side effects. Plan: - Decrease Lexapro to 10 mg PO daily - Patient instructed to cut home supply in half - Monitor mood and anxiety - Follow up in 4 weeks, or sooner if concerns arise Medication Side Effects (Caplyta) Assessment: Patient reports ongoing dizziness, headaches, and new onset urinary incontinence despite Caplyta dose reduction to 21 mg for approximately 2 weeks. Additionally, patient notes dry mouth attributed to Caplyta, though this is not a primary concern. Recent falls have been reported, possibly related to dizziness. Memory concerns have also been mentioned. Plan: - Continue Caplyta 21 mg - Monitor for changes in dizziness, headaches, and urinary incontinence - Assess for improvement in side effects with Lexapro dose reduction Insomnia Assessment: Patient reports sleeping well with current Caplyta regimen. Plan: - Continue current sleep management - Reassess sleep quality at follow-up 03/21/2025 Ira Nelson, female, presents with improved dizziness and falling, interrupted sleep, and stable mood on current medication regimen including Caplyta, Lexapro, and bupropion. Mood disorder Assessment: Patient reports stable mood with no anxiety or suicidal thoughts. Currently on Caplyta 21 mg, Lexapro 10 mg (recently reduced from 20 mg), and bupropion 100 mg TID. Patient tolerating Caplyta well without side effects. Recent reduction in Lexapro dose has not negatively impacted mood stability. Plan: - Continue Caplyta 21 mg PO at bedtime - Continue Lexapro 10 mg PO daily - Adjust bupropion: - Discontinue nighttime dose - Change to 150 mg PO BID (morning and afternoon) - Total daily dose reduced from 300 mg to 200 mg - Follow up in 4 weeks to assess response to medication changes Sleep disturbance Assessment: Patient reports interrupted sleep, waking twice nightly to urinate due to increased water intake for kidney health. Sleep duration varies between 6-8 hours. Recently started magnesium supplement for sleep and muscle cramps. Experienced severe insomnia prior to clinician's vacation. Bupropion's nighttime dose may be contributing to sleep difficulties. Plan: - Discontinue nighttime dose of bupropion to potentially improve sleep - Continue magnesium supplement as patient initiated - Reassess sleep quality at follow-up appointment in 4 weeks Medication management Assessment: Patient reports accidentally leaving medication cap off, resulting in cats accessing the medication. Current regimen includes Caplyta 21 mg, Lexapro 10 mg (reduced from 20 mg), bupropion 100 mg TID, and as-needed quetiapine (halved dose, rarely used for sleep). Patient transitioned from extended-release bupropion to immediate-releas e following gastric bypass surgery due to altered absorption. Plan: - Educate patient on importance of secure medication storage - Discontinue as-needed quetiapine for sleep - Adjust bupropion as noted in mood disorder plan - Monitor for any changes in medication efficacy or side effects with dosage adjustments - Follow up in 4 weeks to assess response to medication changes Plan Of Treatment No Information Insurance Providers Payer Name Payer Address Payer Phone Subscriber Number Group Number Insured Name Patient Relationship to Insured Coverage Start Date Coverage End Date [place] [address] [place] [phone] [id number] MEDARDO NELSON Self - patient is the insured For Life - Medicare Supplement [address] [place] [address] [id number] MEDARDO NELSON Self - patient is the insured Medical (General) History Medical History History ICD Code Problems: Acquired hypothyroidism Obesity Obstructive sleep apnea syndrome Primary insomnia Past Psychiatric History: An xiety Disorder,Major Depressive Episode,Bipolar Disorder undefined chronic fatigue syndrome Surgical History Surgery Date(Month/Year) Hysterectomy (72625) 09/21/2000 Tonsilectomy/adenoids 09/21/2010 Bariatric operative procedure ([id number] ) 10/01/2018
--- OUTSIDE RECORDS SUMMARY | 2025-05-25 11:43 | XMS_ITS | Clinical Summary ---
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 8 Active folic acid 20 [...] (09/09/2018): Added automatically from request for surgery [id number] Anxiety 08/10/2018 Depression 08/10/2018 GERD (gastroesophageal reflux [...] History Date Comments Type 2 diabetes mellitus Sleep apnea GERD (gastroesophageal reflux disease) Bipolar disorder Anxiety Depression Hypothyroidism Morbid obesity (HCC) PONV [...] on file Legal 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 Gender Identity Not on file Sexual Orientation [...] 02/02/2024 Influenza Vaccine (#1) 2025 Insurance MEDICARE [facility] MEDICARE [facility] MEDICARE [facility] Address: [address] [address] [place] [address] [facility] CLAIM[facility] Advance Directives For more information, please contact: [phone] * Full Code (Latest Code Status on File) Date Activated Date Inactivated Comments 10/01/2018 5:46 PM 10/04/2018 2:50 PM Care Teams Behavioral Health Therapist Relationship Specialty Start Date End Date Elio Tobar MD [address] [place] [address] PCP - General Internal Medicine 05/05/18 Felipe Conte MD [phone] [place] [address] Referring Physician General Surgery 05/05/18 Benoit Pond DPT [id number] [place] [address] Physical Therapist Physical Therapy 05/26/18
--- OUTSIDE RECORDS SUMMARY | 2025-05-25 11:44 | XMS_ITS | Clinical Summary ---
Author Organization [facility] Address [address] [place] [id number] Care Team Providers Care Anode Crew Supervisor Name Role Phone Elio Tobar MD Primary Care Provider [phone] Social History Tobacco Use Types Packs/Day Years [...] 1955 Hepatitis C 1975 Mammogram Screening 1997 Pneumococcal Vaccine: 50+ Years (1 of 1 - PCV) 2007 Zoster Vaccines (1 of 2) 2007 Annual Medicare Wellness Visit 2022 Dexa Scan (General) 2022 DTaP, Tdap and Td Vaccines ( [...] age to complete this topic Insurance MEDICARE [facility] Care Teams Anode Crew Supervisor Relationship Specialty Start Date End Date Elio Tobar MD [address] [place], [place] [id number] PCP - General INTERNAL MEDICINE 06/19/21
== END 2025-05-25 11:05 | disposition home or self-care (01) ==
LOC: ANHFOHIMG 11:05
PROVIDERS: PCP Family Medicine; Visit Provider Physician Assistant Medical
DX: Z78.0 Asymptomatic menopausal state (principal); M85.852 Other specified disorders of bone density and structure, left thigh; M85.851 Other specified disorders of bone density and structure, right thigh
CPT/HCPCS: 36415; 77080; 80069; 82570; 82607; 83540; 83550; 84156; 85027

== ENCOUNTER 2025-05-25 11:42 | Outpatient (CLI) | payer MEDICARE, OTHER, SELFPAY ==
--- OUTSIDE RECORDS SUMMARY | 2025-05-25 12:18 | XMS_ITS | Clinical Summary ---
Author Organization [facility] Address [address] [place] [address] Care Team Providers Care Apprentice Cosmetologist Name Role Phone Elio Tobar MD Primary Care Provider [phone] Source Comments [facility],non-owned Affiliates and Associated Physician Practices is amultiple site organization consisting of ambulatory clinics and hospital sitesin [place], [place], [place] and [place]. This disclosure is being madepursuant to the Care Everywhere program and may not contain all information available regarding this patient. 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 Gender Identity Not on file Sexual Orientation Not on file Last Filed Vital Signs Vital Sign Reading Time Taken Comments Blood Pressure 124/78 08/06/2016 10:33 AM SOFTWARE EDUCATOR Pulse 65 08/06/2016 10:33 AM SOFTWARE EDUCATOR Temperature 36.8 C (98.2 F) 08/06/2016 10:33 AM SOFTWARE EDUCATOR Respiratory Rate 16 08/06/2016 10:33 AM SOFTWARE EDUCATOR Oxygen Saturation 96% 08/06/2016 10:48 AM SOFTWARE EDUCATOR Inhaled Oxygen Concentration - - Weight 129.3 kg (285 lb) 08/06/2016 10:33 AM SOFTWARE EDUCATOR Height 165.1 cm (5' 5) 08/06/2016 10:33 AM SOFTWARE EDUCATOR Body Mass Index 47.43 08/06/2016 10:33 AM SOFTWARE EDUCATOR Plan of Treatment Health Maintenance Due Date [...] complete this topic Insurance MEDICARE MEDICARE MEDICARE [facility] Care Teams Apprentice Cosmetologist Relationship Specialty Start Date End Date Elio Tobar MD [address] [place] [id number] PCP - General 10/23/21
--- OUTSIDE RECORDS SUMMARY | 2025-05-25 12:18 | XMS_ITS | Encounter Summary ---
Author Organization [facility] Address [address] [place] [address] Care Team Providers Care School Bus Attendant Name Role Phone Shruthi Haynes MD Primary Care Provider + Elio Tobar MD Primary Care Provider [phone] Felipe Conte MD Unavailable [phone] Benoit Pond DPT Unavailable Unavailable Encounter Details Date Type Department Care Team (Late st Contact Info) Description 10/01/2016 Orders Only [facility] ProviderUlises MD [address] [place] [address] Social History Tobacco Use Types Packs/Day Years Used Date Smoking Tobacco: Never Comments Unknown Sex and Gender Information Value Date Recorded Sex Assigned at Not on file 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 Gender Identity Not on file Sexual Orientation [...] on filedocumented in this encounter Care Teams School Bus Attendant Relationship Specialty Start Date End Date Shruthi Haynes MD [address] [place] [address] PCP - General 10/09/08 05/04/18 Elio Tobar MD [address] [facility] [address] [place] [address] PCP - General Internal Medicine 05/05/18 Felipe Conte MD [id number] [place] [address] Referring Physician General Surgery 05/05/18 Benoit Pond, [address] [address] [place] [address] Physical Therapist Physical Therapy 05/26/18 documented as of this encounter
--- OUTSIDE RECORDS SUMMARY | 2025-05-25 12:18 | XMS_ITS | Clinical Summary ---
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 8 Active folic acid 20 [...] (09/09/2018): Added automatically from request for surgery [id number] Anxiety 08/10/2018 Depression 08/10/2018 GERD (gastroesophageal reflux [...] on file 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 Gender Identity Not on file Sexual Orientation [...] 02/02/2024 Influenza Vaccine (#1) 2025 Insurance MEDICARE [facility] Member Subscriber Plan / Payer (Ef fective 2024-Present) Name:Medardo Nelson Relation to Subscriber:Self Name:NelsonTamis Payer ID:[id number] (NAIC) Group ID:[id number] Co-Work Type:[employer] Address: [address] [place] [address] MEDICARE [facility] Member Subscriber Plan / Payer (Ef fective 2018-Present) Name:Medardo Nelson Relation to Subscriber:Self Name:Medardo Nelson Payer ID:[id number] (NAIC) Group ID:Not on file Type:[employer] Address: [address] [place] [address] MEDICARE [facility] CLAIMS Advance Directives For more information, please contact: [phone] * Full Code (Latest Code Status on File) Date Activated Date Inactivated Comments 10/01/2018 5:46 PM 10/04/2018 2:50 PM Care Teams Tour Bus Driver Relationship Specialty Start Date End Date Elio Tobar MD [address] [place] [address] PCP - General Internal Medicine 05/05/18 Felipe Conte MD [phone] [place] [address] Referring Physician General Surgery 05/05/18 Benoit Pond DPT [address] [place] [address] Physical Therapist Physical Therapy 05/26/18
[2025-05-25 12:22] LABS: Hematocrit 38.5 % (37.0-47.0); Hemoglobin 11.7 g/dL (12.0-15.0); Mean Corpuscular HGB Conc 30.4 g/dl (32-36); Mean Corpuscular Hemoglobin 25.8 pg (26-34); Mean Corpuscular Volume 85.0 fl (80-100); Platelet Count Result 181 k/mm3 (150-375); Red Blood Count 4.53 M/mm3 (4.2-5.4); White Blood Count 4.4 K/mm3 (4.5-10.0)
[2025-05-25 12:36] LABS: Total Protein Urine Random 8 mg/dL; Ur Ttl Prot Creatinine Ratio 0.03 mg/mg (0-0.20)
[2025-05-25 12:47] LABS: Albumin Level 4.2 g/dL (3.5-5.1); Anion Gap 8 mmol/L (4-12); Blood Urea Nitrogen 21 mg/dL (7-17); Calcium 9.7 mg/dL (8.4-10.2); Carbon Dioxide 27 mmol/L (22-30); Chloride 104 mmol/L (98-107); Estimated Glomerular Filt Rate 55; Glucose 80 mg/dL (65-110); Iron 110 ug/dL (37-170); Potassium 3.8 mmol/L (3.4-5.0); Sodium 139 mmol/L (137-145)
[2025-05-25 12:57] LABS: Percent Iron Saturation 25 % (20-50)
[2025-05-26 11:08] LABS: Vitamin B12 441 pg/mL (232-1245)
== END 2025-05-25 11:43 | disposition home or self-care (01) ==
LOC: ANHLAB 11:46
PROVIDERS: PCP Family Medicine; Referring Provider Nurse Practitioner Family; Visit Provider Internal Medicine Nephrology
DX: N18.31 Chronic kidney disease, stage 3a (principal); D64.9 Anemia, unspecified; K91.89 Other postprocedural complications and disorders of digestive system; D50.8 Other iron deficiency anemias; D50.9 Iron deficiency anemia, unspecified
CPT/HCPCS: 36415; 80069; 82570; 82607; 83540; 83550; 84156; 85027

== ENCOUNTER 2025-07-24 14:50 | Outpatient (CLI) | payer MEDICARE, OTHER, SELFPAY ==
--- NOTE | ~2025-07-24 | CT_ITS ---
EXAM: CT abdomen pelvis with contrast INDICATION: Diverticulitis COMPARISONS: None. PROCEDURE: 100 mL of Isovue 300 was injected IV. Enteric contrast given. Dose reduction technique(s) used. FINDINGS: Lower chest: Lung bases are clear. Body wall: No abnormality demonstrated. ABDOMEN: Liver: Normal size and homogeneous parenchyma. Gallbladder: No calcified gallstones. No bile duct dilatation. Spleen: Normal. Adrenals: Normal. Pancreas: No mass or adjacent stranding. Normal caliber duct. Kidneys: No calculus, mass or hydronephrosis. There is a cortical defect on the right consistent with scarring. Aorta: Normal caliber. IVC: Normal. Retroperitoneum: No adenopathy. Stomach and visualized esophagus: Postop changes in the stomach. PELVIS: Reproductive Organs: The uterus is not seen. Bladder: No nodule or calculus. Colon: No focal wall thickening or paracolic fat stranding. There are a few scattered diverticula Small Bowel: No dilatation or wall thickening. Appendix: Normal. Mesentery: No adenopathy. Normal splanchnic veins. Peritoneum: No free fluid or free air. Bones: No destructive lesion. Multiple mild vertebral body wedging deformities. IMPRESSION: No acute findings Reviewed, dictated and finalized at location A. RETE BOOM PUMP OPERATOR IMPRESSION: No acute findings
[2025-07-24 15:21] LABS: Estimated Glomerular Filt Rate 45
[2025-07-24 16:18] LABS: Alanine Aminotransferase 15 U/L (6-35); Albumin Level 3.9 g/dL (3.5-5.1); Alkaline Phosphatase 79 U/L (38-126); Anion Gap 5 mmol/L (4-12); Aspartate Amino Transferase 24 U/L (14-36); Bilirubin,Total 0.6 mg/dL (0.2-1.3); Blood Urea Nitrogen 19 mg/dL (7-17); Calcium 9.1 mg/dL (8.4-10.2); Carbon Dioxide 28 mmol/L (22-30); Chloride 101 mmol/L (98-107); Estimated Glomerular Filt Rate 55; Glucose 90 mg/dL (65-110); Potassium 4.4 mmol/L (3.4-5.0); Sodium 134 mmol/L (137-145); Total Protein 6.4 g/dL (6.3-8.2)
== END 2025-07-24 14:51 | disposition home or self-care (01) ==
PROVIDERS: PCP Family Medicine
DX: R10.9 Unspecified abdominal pain (principal); N18.31 Chronic kidney disease, stage 3a; D64.9 Anemia, unspecified
CPT/HCPCS: 36415; 74177; 80053; Q9967